=== PATIENT | female | born 1945 | race Caucasian/White ===

== ENCOUNTER 2021-03-25 08:41 | Outpatient (REF) | payer MEDICARE, SELFPAY | END 2021-03-25 08:42 | disposition home or self-care (01) | LOC: HO.HAP 08:41 | PROVIDERS: Visit Provider Internal Medicine | DX: Z13.89 Encounter for screening for other disorder (principal) ==

== ENCOUNTER 2021-04-04 12:21 | Outpatient (REF) | payer MEDICARE, SELFPAY ==
--- NOTE | 2021-04-04 16:39 | MHC.AU.AHA ---
Adult Audiological Evaluation Date of Visit: 04/04/21 Reason for Appointment: Audiological re-evaluation to monitor the status of Mrs. Dickson's hearing loss. She has a history of bilateral sensorineural hearing loss and hearing aid use. She denies any significant changes to her hearing or medical history. She is interested in pursuing new, updated hearing aids. Previous Hearing Test Results: [facility] [place] [facility] [place] - Mild to severe sensorineural hearing loss bilaterally. 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 Allergies: Penicillin, milk, egg Medication List: Multivitamin, Vitamin D, Calcium, Fluoxetine HCl 20 mg, Zyrtec allergy 10 mg, Omeprazole 20 mg, Basaglar KwikPen 46 units, Metformin HCl 500 mg, Atorvastatin calcium 20 mg Hearing Instrument History- Right Ear: Sales And Retail Management Recruiter: [email or web address] Model: RoleStar 312 UZ Serial Number: [id number] Battery Size: 312 Repair Warranty: 12/16/2019 Loss and Damage Warranty: 02/24/2016 Dispensed By: [facility] Date of Fittin02/08/2012 Hearing Instrument History- Left Ear: Sales And Retail Management Recruiter: [email or web address] Model: RoleStar 312 UZ Serial Number: [id number] Battery Size: 312 Warranty: 02/24/2016 Loss and Damage Warranty: 02/24/2016 Dispensed By: [facility] Date of Fittin02/08/2012 Otoscopy: Right Ear: Unremarkable Left Ear: Unremarkable Tympanometry: Tympanometry performed due to: To assess integrity of the middle ear system Right Ear: Normal Middle Ear System (Type A) Left Ear: Hypercompliant Middle Ear System (Type Ad) Hearing Evaluation: Transducer(s) Used: Insert Earphones, Bone Conduction Method: Conventional Audiometry Stimuli Used: Pure Tones Right Ear: Description of Hearing: Normal hearing at 250 Hz, sloping to a mild to severe sensorineural hearing loss from 500-8000 Hz. Left Ear: Description of Hearing: Mild sloping to severe sensorineural hearing loss from 250-8000 Hz. Speech Recognition Threshold (SRT): Method Used: Monitored Live Voice Stimuli Used: Spondee Words Right Ear: 35 dBHL Left Ear: 40 dBHL Word Discrimination: Method: Recorded Lists Word Lists Used: NU-6 Right Ear: 80% at 85 dBHL Left Ear: 48% at 85 dBHL Comparison: Compared to the most recent evaluation: Hearing is stable. Recommendations: Audiological re-evaluation in one year. Trial with amplification is recommended. Medical clearance from a physician is required before fitting. See Hearing Aid Evaluation report for more information. Hearing aid options were discussed and Mrs. Dickson decided she would like to proceed with purchasing new hearing aids. Earmolds impressions were taken and hearing aids will be ordered. She will be called to schedule a hearing aid fitting once materials are received. Diagnosis: Primary Diagnosis: H90.3 Bilateral Sensorineural Hearing Loss Services Performed: Comprehensive Audiological Evaluation (CPT 10594) Tympanometry (CPT 05035) Signature: Provider: Taye Roberts, CCC-A
--- NOTE | 2021-04-04 16:41 | MHC.AU.MED ---
Medical Clearance for Hearing Instrumentation Date: 04/04/21 Patient Name: Shannan Dickson Date of : 1945 Referring Provider: Chandan Younger MD, DO We have seen your patient on 04/04/21 and have determined that they are a candidate for amplification (See accompanying report). Specifically, they would benefit from: Hearing aid use in both ears There is a statute that addresses Medical Evaluation Requirements prior to fitting a patient with a hearing aid. According to [place] statute 265 CMR:6.03(1), (a) General. Except as provided in 265 CMR 6.03(1)(b), a kiln packer shall not sell a hearing aid unless the prospective user has presented to the kiln packer a written statement signed by a licensed physician that states that the patient's hearing loss has been medically evaluated and the patient may be considered a candidate for a hearing aid. The medical evaluation must have taken place within the preceding six months. Please note: Due to the [place] Statute referenced above, we cannot accept a signature other than that of a licensed physician. GENERAL TELLER and PA signatures cannot be accepted. I am in agreement with the above recommendation. There is no medical contraindication for hearing instrumentation. Physician Signature Date Physician Name (Printed)
--- NOTE | 2021-04-04 16:41 | MHC.AU.HAS ---
Hearing Aid Evaluation Date of Visit: 04/04/21 Historical Information: Description of Hearing: Mild to severe sensorineural hearing loss bilaterally. Current personal amplification information, if applicable: 2020 [place] ITE Summary: Ms. Dickson is interested in purchasing new hearing aids give the age of her current aids. She would like to remain with an half shell ITE aid. She is interested in Bluetooth streaming. Hearing Aid Prescription: Based on the individual?s shared listening needs, communication environments, dexterity, desire for connectivity, and personal preferences, the following prescription for amplification has been made: Right ear: Car Supervisor: Phonak Model: Virto M70-312 half shell Battery Size: 312 Color: [place] Knitter Operator: Power Left ear: Left ear prescription to be same as Right Hearing Aid above: Car Supervisor: Phonak Model: Virto M70-312 half shell Battery Size: 312 Color: pink Knitter Operator: Power Plan of Care: Patient wishes to purchase hearing aids as prescribed. Earmold Impressions Taken. Medical Clearance to be requested from PCP/ENT. Comments: Card machine was not working today, so patient couldn't pay the deposit. Will bill entire cost of aid at fitting. Primary Diagnosis: H90.3 Bilateral Sensorineural Hearing Loss Signature: Provider: Taye Roberts, CCC-A
== END 2021-04-04 12:22 | disposition home or self-care (01) ==
LOC: HO.SH 12:21
PROVIDERS: Visit Provider Internal Medicine
DX: H90.3 Sensorineural hearing loss, bilateral (principal)
CPT/HCPCS: 92557; 92567

== ENCOUNTER 2021-04-04 13:29 | Outpatient (REF) | payer SELFPAY | END 2021-04-04 13:30 | disposition home or self-care (01) | LOC: HO.HAP 13:29 | PROVIDERS: Visit Provider Internal Medicine | DX: Z13.89 Encounter for screening for other disorder (principal) ==

== ENCOUNTER 2021-04-26 12:55 | Outpatient (REF) | payer SELFPAY | END 2021-04-26 12:56 | disposition home or self-care (01) | LOC: HO.HAP 12:55 | PROVIDERS: Visit Provider Internal Medicine | DX: Z46.1 Encounter for fitting and adjustment of hearing aid (principal); H90.3 Sensorineural hearing loss, bilateral | CPT/HCPCS: 92591; V5260 ==

== ENCOUNTER 2021-05-10 11:19 | Outpatient (REF) | payer SELFPAY | END 2021-05-10 11:20 | disposition home or self-care (01) | LOC: HO.HAP 11:19 | PROVIDERS: Visit Provider Internal Medicine | DX: Z13.89 Encounter for screening for other disorder (principal) ==

== ENCOUNTER 2021-06-18 07:22 | Outpatient (REF) | payer MEDICARE, SELFPAY ==
[2021-06-18 07:38] LABS: MANUAL DIFF FLAG NO
[2021-06-18 08:07] LABS: Basophils Absolute Auto 0.1 X10*3/uL (0.0-0.2); Basophils Percent Auto 1.1 % (0-2); Eosinophils Absolute Auto 0.2 X10*3/uL (0.0-0.4); Eosinophils Percent Auto 4.1 % (0-4); Hematocrit 39.6 % (37-47); Hemoglobin 13.5 g/dl (12.0-16.0); Imm Gran Abs Auto 0.02 X10*3/uL (0.00-0.03); Imm Gran Pct Auto 0.4 % (0.0-0.4); Lymphocytes Absolute Auto 1.8 X10*3/uL (1.2-4.9); Lymphocytes Percent Auto 33.1 % (20-40); Mean Corpuscular HGB Conc 34.1 g/dl (31.0-35.0); Mean Platelet Volume 9.3 fL (9.4-12.3); Monocytes Absolute Auto 0.5 X10*3/uL (0.1-1.2); Monocytes Percent Auto 9.3 % (2-11); Neutrophils Absolute Auto 2.8 X10*3/uL (2.0-8.3); Platelet Count 203 X10*3/uL (160-400); Red Blood Count 4.35 X10*6/uL (4.20-5.50); Red Cell Distribution Width 12.8 % (11.0-16.0); White Blood Count 5.4 X10*3/uL (4.8-10.8)
[2021-06-18 08:31] LABS: Alanine Aminotransferase 16 U/L (0-31); Alkaline Phosphatase 92 U/L (39-117); Anion Gap 11 (12-20); Aspartate Amino Transferase 11 U/L (5-31); Bilirubin Total 0.8 mg/dL (0.0-1.0); Blood Urea Nitrogen 10 mg/dL (9-16); Calcium 9.6 mg/dL (8.4-10.2); Carbon Dioxide 28 mmol/L (22-29); Chloride 106 mmol/L (96-108); Cholesterol 172 mg/dL; Estimated Glomerular Filt Rate > 60; Glucose Fasting 126 mg/dL (60-99); HDL Cholesterol 34 mg/dL; LDL Cholesterol Calculated 97 mg/dl; Potassium 4.3 mmol/L (3.3-5.1); Sodium 141 mmol/L (135-145); Total Protein 6.5 g/dL (6.5-8.0); Triglycerides 205 mg/dL
[2021-06-18 08:40] LABS: Estimated Average Glucose 126 mg/dL; Hemoglobin A1C 150.1347 umol/L
[2021-06-18 08:47] LABS: Thyroid Stimulating Hormone 1.94 uIU/mL (0.32-4.0); Vitamin D 25-OH Total 36.1 ng/mL (>30)
== END 2021-06-18 07:23 | disposition home or self-care (01) ==
LOC: HO.LAB 07:22
PROVIDERS: PCP Internal Medicine; Visit Provider Internal Medicine
DX: E11.9 Type 2 diabetes mellitus without complications (principal); E78.00 Pure hypercholesterolemia, unspecified; E55.9 Vitamin D deficiency, unspecified
CPT/HCPCS: 36415; 80053; 80061; 82306; 83036; 84443; 85025

== ENCOUNTER 2021-11-02 13:08 | Outpatient (REF) | payer MEDICARE, SELFPAY ==
--- NOTE | ~2021-11-02 | MM_ITS ---
EXAMINATION: BONE DENSITOMETRY CLINICAL INDICATION: Status post fracture, left elbow. Postmenopausal. COMPARISON: None (current study represents initial baseline exam). TECHNIQUE: Using a [place] DXA System (software version: 13.1) manufactured by edo, dual-energy x-ray absorptiometry was performed of the lumbar spine and left hip. The images are of good technical quality. Summary results are attached. FINDINGS: AP SPINE L1-L4: BMD 0.914 g/cm2, Z-score -0.8, T-score -2.2, osteopenia. LEFT FEMUR, NECK: BMD 0.791 g/cm2, Z-score 0.0, T-score -1.8, osteopenia. LEFT FEMUR, TOTAL: BMD 0.773 g/cm2, Z-score -0.3, T-score -1.9, osteopenia. IDENTIFIED RISK FACTORS: Osteoporosis, history of fracture (adult), menopause, hysterectomy, bilateral oophorectomy. HISTORY OF FRACTURE: Elbow. MEDICATIONS: Calcium supplements or multivitamin, vitamin D. MM/XR DEXA axial skeleton IMPRESSION: 1. DIAGNOSIS: Osteopenia based on the lowest T-score value of -2.2 in the lumbar spine applying World Health Organization criteria. 2. 10-YEAR FRACTURE RISK PREDICTION, FRAX: Major osteoporotic fracture (clinical spine, forearm, hip or shoulder) 19.0%. Hip fracture 4.2%. 3. Treatment Recommendations: NOF guidelines recommend consideration for treatment in postmenopausal women and men age 50 and older presenting with the following: -A hip or vertebral (clinical or morphometric) fracture. -T-score less than or equal to -2.5 at the femoral neck or spine after appropriate evaluation to exclude secondary causes. -Low bone mass at the hip or spine and a 10-year fracture probability by FRAX of greater than or equal to 3% for hip fracture or greater than or equal to 20% for major osteoporotic fracture based on the [place] adapted WHO algorithm. 4. Other Recommendations: All treatment decisions require clinical judgment and consideration of individual patient factors, including patient preferences, comorbidities, previous drug use, risk factors not captured in the FRAX model (e.g. frailty, falls, vitamin D deficiency, increased bone turnover, interval significant decline in bone density) and possible under or overestimation of fracture risk by FRAX. Additional medical evaluation for secondary cause of low bone mineral density may be appropriate. FUTURE SCAN RECOMMENDATION: People with diagnosed cases of osteoporosis or at high risk for fracture should have regular bone mineral density tests. For patients eligible for Medicare, routine testing is allowed once every 2 years. The testing frequency can be increased to one year for patients who have rapidly progressing disease, those who are receiving or discontinuing medical therapy to restore bone mass, or have additional risk factors.
== END 2021-11-02 13:09 | disposition home or self-care (01) ==
LOC: HO.MAMMO 13:08
PROVIDERS: Visit Provider Internal Medicine
DX: Z13.820 Encounter for screening for osteoporosis (principal); Z78.0 Asymptomatic menopausal state; Z87.81 Personal history of (healed) traumatic fracture; Z90.710 Acquired absence of both cervix and uterus; Z90.722 Acquired absence of ovaries, bilateral; Z79.899 Other long term (current) drug therapy
CPT/HCPCS: 77080

== ENCOUNTER 2022-01-23 13:28 | Outpatient (REF) | payer SELFPAY | END 2022-01-23 13:29 | disposition home or self-care (01) | LOC: HO.HAP 13:28 | PROVIDERS: Visit Provider Internal Medicine | DX: Z13.89 Encounter for screening for other disorder (principal) ==

== ENCOUNTER 2022-02-03 13:14 | Outpatient (REF) | payer SELFPAY | END 2022-02-03 13:15 | disposition home or self-care (01) | LOC: HO.HAP 13:14 | PROVIDERS: Visit Provider Internal Medicine | DX: Z13.89 Encounter for screening for other disorder (principal) ==

== ENCOUNTER 2022-07-11 12:53 | Outpatient (REF) | payer MEDICARE, SELFPAY ==
--- NOTE | 2022-07-11 14:08 | MHC.AU.HFU ---
Hearing Instrument Follow-Up- Binaural Date of Visit: 07/11/22 Right Ear: Phonak Virto M70-312 SN: [id number] Color: [place] Repair Warranty: 05/20/2024 Loss and Damage Warranty: 05/20/2024 Battery Size: 312 Type of Wax Guard: Cerustop Dispensed By: [facility] Date of Fittin04/26/2021 Left Ear: Phonak Virto M70-312 SN: [id number] Color: [place] Repair Warranty: 05/20/2024 Loss and Damage Warranty: 05/20/2024 Battery Size: 312 Type of Wax Guard: Cerustop Dispensed By: [facility] Date of Fittin04/26/2021 Follow-Up Summary: Shannan returned for routine hearing aid maintenance. The left hearing aid faceplate is starting to detach from the shell and the shell is beginning to crack. Otherwise, Shannan is overall happy with her hearing aids and is not experiencing any other issues at this time. Her right hearing aid was cleaned, microphones vacuumed, and wax guard replaced. A listening check demonstrated that the right hearing aid is in good working order. The left hearing aid will be sent to [employer] to be recased for an in-warranty repair. Recommendations: Hearing instrument maintenance in 6 months, or sooner if needed. Please contact our clinic with any questions or concerns. Shannan will be contacted when her left hearing aid has returned from repair and is ready to be picked up. Diagnosis Code(s): Primary Diagnosis: H90.3 Bilateral Sensorineural Hearing Loss Signature: Provider: Lopez Groves, [facility]
== END 2022-07-11 12:54 | disposition home or self-care (01) ==
LOC: HO.SH 12:53
PROVIDERS: Visit Provider Internal Medicine
DX: H90.3 Sensorineural hearing loss, bilateral (principal)
CPT/HCPCS: 92557

== ENCOUNTER 2022-07-28 11:26 | Outpatient (REF) | payer SELFPAY ==
--- NOTE | 2022-07-28 12:06 | MHC.AU.HFU ---
Hearing Instrument Follow-Up- Binaural Date of Visit: 07/28/22 Right Ear: Phonak Virto M70-312 SN: [id number] Color: [place] Repair Warranty: 05/20/2024 Loss and Damage Warranty: 05/20/2024 Battery Size: 312 Type of Wax Guard: Cerustop Dispensed By: [facility] Date of Fittin04/26/2021 Left Ear: Phonak Virto M70-312 SN: [id number] Color: [place] Repair Warranty: 05/20/2024 Loss and Damage Warranty: 05/20/2024 Battery Size: 312 Type of Wax Guard: Cerustop Dispensed By: [facility] Date of Fittin04/26/2021 Follow-Up Summary: Shannan picked up her left repaired hearing aid. Reconnected both hearing aids via Target software and confirmed connection to cell phone. Recommendations: Hearing instrument maintenance in 6 months, or sooner if needed. Please contact our clinic with any questions or concerns. Diagnosis Code(s): Primary Diagnosis: H90.3 Bilateral Sensorineural Hearing Loss Signature: Provider: Lopez Groves, [facility]
== END 2022-07-28 11:27 | disposition home or self-care (01) ==
LOC: HO.HAP 11:26
PROVIDERS: Visit Provider Internal Medicine
DX: Z13.89 Encounter for screening for other disorder (principal)

== ENCOUNTER 2023-02-15 08:15 | Outpatient (REF) | payer MEDICARE, SELFPAY ==
[2023-02-15 11:37] LABS: MANUAL DIFF FLAG NO
[2023-02-15 11:50] LABS: Basophils Percent Auto 0.5 % (0-2); Eosinophils Absolute Auto 0.2 X10*3/uL (0.0-0.4); Hemoglobin 13.8 g/dl (12.0-16.0); Imm Gran Abs Auto 0.02 X10*3/uL (0.00-0.03); Imm Gran Pct Auto 0.4 % (0.0-0.4); Lymphocytes Absolute Auto 1.7 X10*3/uL (1.2-4.9); Lymphocytes Percent Auto 30.2 % (20-40); Mean Corpuscular HGB Conc 32.9 g/dl (31.0-35.0); Mean Corpuscular Hemoglobin 29.9 pg (27.0-33.0); Mean Corpuscular Volume 90.9 fL (80.0-98.0); Mean Platelet Volume 9.5 fL (9.4-12.3); Monocytes Absolute Auto 0.4 X10*3/uL (0.1-1.2); Monocytes Percent Auto 7.7 % (2-11); Neutrophils Absolute Auto 3.3 x10*3/uL (2.0-8.3); Neutrophils Percent Auto 58.2 % (45-73); Platelet Count 230 X10*3/uL (160-400); Red Blood Count 4.62 X10*6/uL (4.20-5.50); Red Cell Distribution Width 12.9 % (11.0-16.0); White Blood Count 5.7 X10*3/uL (4.8-10.8)
[2023-02-15 12:17] LABS: Alanine Aminotransferase 19 U/L (0-31); Albumin Level 3.8 g/dL (3.5-5.0); Alkaline Phosphatase 110 U/L (39-117); Anion Gap 12 (12-20); Aspartate Amino Transferase 13 U/L (5-31); Blood Urea Nitrogen 10 mg/dL (9-16); Calcium 9.9 mg/dL (8.4-10.2); Carbon Dioxide 28 mmol/L (22-29); Chloride 107 mmol/L (96-108); Cholesterol 166 mg/dL; Estimated Glomerular Filt Rate > 60; Glucose Fasting 200 mg/dL (60-99); HDL Cholesterol 38 mg/dL; LDL Cholesterol Calculated 82 mg/dl; Potassium 4.6 mmol/L (3.3-5.1); Sodium 142 mmol/L (135-145); Total Protein 6.4 g/dL (6.5-8.0); Triglycerides 231 mg/dL
[2023-02-15 12:23] LABS: Estimated Average Glucose 160 mg/dL; Hemoglobin A1c % 7.2 %; Thyroid Stimulating Hormone 1.69 uIU/mL (0.32-4.0); Vitamin D 25-OH Total 23.9 ng/mL (>30)
== END 2023-02-15 08:16 | disposition home or self-care (01) ==
LOC: HO.HMGCLDS 08:15
PROVIDERS: PCP Internal Medicine; Visit Provider Internal Medicine
DX: Z00.00 Encounter for general adult medical examination without abnormal findings (principal); E11.9 Type 2 diabetes mellitus without complications; E78.00 Pure hypercholesterolemia, unspecified; K21.9 Gastro-esophageal reflux disease without esophagitis; F41.1 Generalized anxiety disorder; E55.9 Vitamin D deficiency, unspecified; Z85.3 Personal history of malignant neoplasm of breast
CPT/HCPCS: 36415; 80053; 80061; 82306; 83036; 84443; 85025

== ENCOUNTER 2023-06-04 11:27 | Outpatient (REF) | payer SELFPAY | END 2023-06-04 11:28 | disposition home or self-care (01) | LOC: HO.HAP 11:27 | PROVIDERS: Visit Provider Internal Medicine | DX: Z13.89 Encounter for screening for other disorder (principal) ==

== ENCOUNTER 2023-07-25 15:29 | Outpatient (REF) | payer SELFPAY ==
--- NOTE | 2023-07-25 15:52 | MHC.AU.HA3 ---
Hearing Instrument Follow-Up- Binaural Date of Visit: 07/25/23 Right Ear: Make, Model, Color, Serial Number: Aidan Mcdermott [id number] SN: [id number] Color: [place] [employer] Repair Warranty: 05/20/2024 [employer] Services Loss and Damage Warranty: 05/20/2024 Battery Size: 312 Senior Manufacturing Technician/Slim Tube: Power Type of Wax Guard: Cerustop Dispensed By: [facility] Date of Fittin04/26/2021 Left Ear: Make, Model, Color, Serial Number: Aidan Mcdermott [id number] SN: [id number] Color: [place] [employer] Repair Warranty: 08/08/2024 [employer] Loss and Damage Warranty: 05/20/2024 Battery Size: 312 Senior Manufacturing Technician/Slim Tube: Power Type of Wax Guard: Cerustop Dispensed By: [facility] Date of Fittin04/26/2021 Follow-Up Summary: Shannan picked up her left repaired hearing aid. Reconnected to right hearing aid and reprogrammed to previous settings via Target software. Shannan noted a slight echo from the left hearing aid; however, may be attributed to reacclimating to sound quality as she has been without a left hearing aid since 06/04/2023. Shannan was agreeable to trying hearing aids as is to give herself time to adjust to having two hearing aids again. She will call if issues with sound quality persist. Recommendations: Hearing instrument follow-up or maintenance as needed. Please contact our clinic with any questions or concerns. Patient will call if problems persist. Diagnosis Code(s): Primary Diagnosis: H90.3 Bilateral Sensorineural Hearing Loss Signature: Provider: Lopez Groves, [facility]
== END 2023-07-25 15:30 | disposition home or self-care (01) ==
LOC: HO.HAP 15:29
PROVIDERS: Visit Provider Internal Medicine
DX: Z13.89 Encounter for screening for other disorder (principal)

== ENCOUNTER 2023-10-26 11:14 | Emergency (ER) | payer MEDICARE, SELFPAY ==
--- NOTE | ~2023-10-26 | XR_ITS ---
EXAMINATION: XR CHEST CLINICAL INFORMATION: Mechanical fall, chest injury and pain COMPARISON: Chest x-ray on 03/03/2019 TECHNIQUE: 2 views of the chest were obtained. FINDINGS: vascularity. LUNGS: Persistent medium-sized retrocardiac hiatus hernia with air-fluid level is seen. Tiny horizontal linear atelectasis is seen in lateral right lung base. No pneumothorax is seen. BONES: Bony skeleton is intact. XR/XR chest 2V IMPRESSION: 1. Unchanged medium-sized retrocardiac hiatus hernia, visualized on CT scan of chest on 10/30/2018. 2. Interval development of tiny lateral right lung base horizontal linear atelectasis.
--- NOTE | ~2023-10-26 | XR_ITS ---
EXAMINATION: XR KNEE, LEFT CLINICAL INFORMATION: Fell down one to left knee, left knee injury and pain COMPARISON: None available. TECHNIQUE: AP and lateral views of the left knee. FINDINGS: BONES: Bony structures are intact. There is no focal bone destruction or periosteal reaction seen. JOINTS: Alignment of joints is normal. SOFT TISSUE: Soft tissue is normal. No radiopaque foreign body or abnormal air collection is seen. XR/XR knee LT 2V IMPRESSION: 1. Normal x-rays of left knee. No fracture or dislocation or signs of osteomyelitis are found.
[2023-10-26 11:21] VITALS: BP 170/84; PULSE 86; RESP 18; TEMP 36.7; O2SAT 97; BMI 25.1
--- NOTE | 2023-10-26 11:25 | ED_ITS ---
HPI - Fall General Chief Complaint: Fall Stated Complaint: fell twice in the last 2 days, sent by dr Time Seen by Provider: 10/26/23 16:24 Source: patient and family Mode of arrival: ambulatory Limitations: no limitations History of Present Illness HPI Narrative: Patient with history diabetes, vitamin-D deficiency breast cancer status post radiation therapy and lumpectomy is alone came here for episodes of 2 falls at home without warning. Two days ago patient walking to the kitchen suddenly legs gave out does not know what happened and she fell without hitting her head yesterday same thing happened no lightheadedness no seizure activity no chest pain or palpitation no confusion before or after no dizziness patient has gait and balance problem no history of alcohol use ex-smoker patient complaining of mild pain in the L knee patient checked her blood sugar was 127 Related Data Allergies Allergy/AdvReac Type Severity Reaction Status Date / Time penicillin G Allergy Unknown anaphylaxis Verified 04/04/19 00:00 penicillin V Allergy Unknown anaphylaxis Verified 02/23/16 00:00 Penicillins [PENICILLINS] Allergy Unknown ANAPHYLAXIS Unverified 05/27/20 14:51 milk [Milk] AdvReac Intermediate DIGESTIVE Verified 10/26/23 11:21 UPSET egg [Egg] AdvReac Mild DIGESTIVE Verified 10/26/23 11:21 UPSET Review of Systems 2 Review of Systems: Yes all other systems are reviewed and are negative [facility] Social History Social History Smoked in Last 30 Days: No Use of substances other than those prescribed or required for medical reasons: No Advance Directives: Yes Advance Directives Information Provided: Yes Advance Directives on File: No Physical Exam 2 Vital Signs: Vital Signs: Last Vital Signs Temp 98.8 F 10/26/23 14:53 Pulse 86 10/26/23 17:25 Resp 16 10/26/23 17:18 BP 147/81 H 10/26/23 17:25 Pulse Ox 96 10/26/23 14:53 O2 Del Method Room Air 10/26/23 14:53 BMI result Body Mass Index 25.1 Appearance: Alert. Oriented X3. No acute distress. Eyes: No pallor or icterus ENT: Pharynx normal. Oral Mucosa moist Neck: Normal inspection. Neck supple. CVS: Normal heart rate and rhythm. Pulses normal. Respiratory: No respiratory distress. Equal air entry bilateral, no wheezing/rales/rhonchi Abdomen: Soft and nontender. Bowel sounds are present, no mass palpable, no CVA tenderness Skin: Skin warm and dry. Normal skin color. Normal skin turgor. Extremities: No lower extremity edema. No calf tenderness low muscle mass mild tenderness left kneecap no effusion good range of movement Neuro: Oriented X 3. No motor deficit. No sensory deficit.No cerebellar signs , cranial nerves II-XII intact steady gait but unable to walk a straight line Course Course Course Narrative: RME:?78 yo female w/ history of t2 diabetes, htn, vitamin-D deficiency, breast cancer status post lumpectomy and radiation, here from PCP office for eval of left knee pain s/p fall 2 days ago. States she fell forward onto ceramic floor with impact to her knees, without warning 2 days ago. Not on AC. Denies head strike or LOC. Was able to stand and ambulate after fall. Denies preceding events such as headache, dizziness, chest pain, SOB, weakness. Reports the same thing happened yesterday. no recent travel/ long car rides. labs, cxr, knee xr ordered. Full HPI, ROS and PE to be performed by the primary ED provider. Medical Decision Making Medical Decision Making [facility] Narrative: Patient with poor muscle mass fell secondary to legs giving out without any significant injuries workup is negative no cardiac arrhythmias noticed in the ER orthostatics are normal patient advised to follow with PCP for physical therapy and maybe patient needs Holter monitoring Differential Diagnosis Differential Diagnoses: The differential diagnosis associated with the presentation includes Cardiac arrhythmias/seizure/muscular weakness/syncope/metabolic etiology Lab Data [facility] Lab Attestation statement: I reviewed the patient's lab results. 10/26/23 12:57 10/26/23 12:57 Labs: Lab Results 10/26/23 Range/Units 12:57 WBC 7.5 (4.8-10.8) X10*3/uL RBC 4.37 (4.20-5.50) X10*6/uL Hgb 13.0 (12.0-16.0) g/dl Hct 39.3 (37.0-47.0) % MCV 89.9 (80.0-98.0) fL MCH 29.7 (27.0-33.0) pg MCHC 33.1 (31.0-35.0) g/dl RDW 13.4 (11.0-16.0) % Plt Count 214 (160-400) X10*3/uL MPV 9.2 L (9.4-12.3) fL Immature Gran % (Auto) 0.4 (0.0-0.4) % Neut % (Auto) 63.8 (45-73) % Lymph % (Auto) 20.7 (20-40) % Cobb % (Auto) 9.2 (2-11) % Eos % (Auto) 5.2 H (0-4) % Baso % (Auto) 0.7 (0-2) % Lymph # (Auto) 1.6 (1.2-4.9) X10*3/uL Cobb # (Auto) 0.7 (0.1-1.2) X10*3/uL Eos # (Auto) 0.4 (0.0-0.4) X10*3/uL Baso # (Auto) 0.1 (0.0-0.2) X10*3/uL Abs Immat Gran (auto) 0.03 (0.00-0.03) X10*3/uL Absolute Neuts (auto) 4.8 (2.0-8.3) x10*3/uL Absolute Nucleated RBC 0.000 (0.0-0.012) X10*3/uL Nucleated RBC % (auto) 0.0 (0.0-0.2) /100WBC PT 11.0 L (11.1-13.3) SEC INR 0.9 (0.9-1.1) Sodium 143 (135-145) mmol/L Potassium 3.7 (3.3-5.1) mmol/L Chloride 107 (96-108) mmol/L Carbon Dioxide 26 (22-29) mmol/L Anion Gap 14 (12-20) BUN 5 L (9-16) mg/dL Creatinine 0.56 (0.5-1.4) mg/dL Estim Creat Clear Calc 81.8 Estimated GFR > 60 Random Glucose 122 H (60-115) mg/dL Calcium 9.4 (8.4-10.2) mg/dL Magnesium 1.7 (1.6-2.6) mg/dL Troponin I High Sens < 2.7 (<3.5-17.0) ng/L Independent Interpretation I performed an independent interpretation of an: EKG and Plain X-Ray Interpretation: Normal sinus rhythm heart rate 79 beats per minute normal intervals normal axis impression normal EKG Radiology Impression Discussion of test interpretation with radiology: I have reviewed the radiologist's reading. Discharge Plan Discharge Clinical Impression: Fall Patient Disposition: Home, Self-Care Instructions: Fall Prevention for Older Adults (ED) Additional Instructions: Care and cautions as advised Use cane or walker for ambulation for now Follow-up with PCP for further evaluation including physical therapy referral and may need Holter monitoring Interventions: ED Discharge Assessment Last Done: 10/26/23 17:32 Discharge Date/Time: 10/26/23 17:39
--- NOTE | 2023-10-26 11:27 | ECG_ITS ---
Test Reason : FAL Blood Pressure : / mmHG Vent. Rate : 079 BPM Atrial Rate : 079 BPM P-R Int : 148 ms QRS Dur : 086 ms QT Int : 388 ms P-R-T Axes : 007 -10 005 degrees QTc Int : 444 ms Normal sinus rhythm Normal ECG When compared with ECG of 09-DEC-2009 11:32, No significant change was found Referred By: Dorys Augustin Electronically Signed By:Sloan Macedo
[2023-10-26 13:02] LABS: MANUAL DIFF FLAG NO
[2023-10-26 13:17] LABS: INTERNATIONAL NORM RATIO 0.9 (0.9-1.1)
[2023-10-26 13:18] LABS: Anion Gap 14 (12-20); Blood Urea Nitrogen 5 mg/dL (9-16); Calcium 9.4 mg/dL (8.4-10.2); Carbon Dioxide 26 mmol/L (22-29); Chloride 107 mmol/L (96-108); Creatinine Clr Calc Pharmacy 81.8; Estimated Glomerular Filt Rate > 60; Glucose Random 122 mg/dL (60-115); Magnesium 1.7 mg/dL (1.6-2.6); Potassium 3.7 mmol/L (3.3-5.1); Sodium 143 mmol/L (135-145)
[2023-10-26 13:26] LABS: Basophils Absolute Auto 0.1 X10*3/uL (0.0-0.2); Basophils Percent Auto 0.7 % (0-2); Eosinophils Absolute Auto 0.4 X10*3/uL (0.0-0.4); Eosinophils Percent Auto 5.2 % (0-4); Hematocrit 39.3 % (37.0-47.0); Imm Gran Abs Auto 0.03 X10*3/uL (0.00-0.03); Imm Gran Pct Auto 0.4 % (0.0-0.4); Lymphocytes Absolute Auto 1.6 X10*3/uL (1.2-4.9); Lymphocytes Percent Auto 20.7 % (20-40); Mean Corpuscular HGB Conc 33.1 g/dl (31.0-35.0); Mean Corpuscular Hemoglobin 29.7 pg (27.0-33.0); Mean Corpuscular Volume 89.9 fL (80.0-98.0); Mean Platelet Volume 9.2 fL (9.4-12.3); Monocytes Absolute Auto 0.7 X10*3/uL (0.1-1.2); Monocytes Percent Auto 9.2 % (2-11); Neutrophils Absolute Auto 4.8 x10*3/uL (2.0-8.3); Neutrophils Percent Auto 63.8 % (45-73); Platelet Count 214 X10*3/uL (160-400); Red Blood Count 4.37 X10*6/uL (4.20-5.50); Red Cell Distribution Width 13.4 % (11.0-16.0); White Blood Count 7.5 X10*3/uL (4.8-10.8)
[2023-10-26 13:27] LABS: Troponin-I High Sensitivity < 2.7 ng/L (<3.5-17.0)
[2023-10-26 14:53] VITALS: BP 171/84; PULSE 78; RESP 16; TEMP 37.1; O2SAT 96
[2023-10-26 17:17] VITALS: BP 135/69; PULSE 75; RESP 16
[2023-10-26 17:18] VITALS: BP 142/70; BP 147/81; PULSE 82; PULSE 86; RESP 16
[2023-10-26 17:25] VITALS: BP 135/69; BP 142/70; BP 147/81; PULSE 75; PULSE 82; PULSE 86
== END 2023-10-26 17:39 | disposition home or self-care (01) ==
PROVIDERS: Physician Assistant Medical; Emergency Provider Internal Medicine; PCP Internal Medicine
DX: R26.81 Unsteadiness on feet (principal); M25.562 Pain in left knee; R07.89 Other chest pain; Z79.899 Other long term (current) drug therapy
CPT/HCPCS: 36415; 71046; 73560; 80048; 83735; 84484; 85025; 85610; 93005; 99283; 99284

== ENCOUNTER → 2023-10-26 11:27 | Outpatient (BNV) | payer MEDICARE, SELFPAY | PROVIDERS: Emergency Provider Internal Medicine; PCP Internal Medicine; Visit Provider Internal Medicine Cardiovascular Disease | DX: R55 Syncope and collapse (principal) | CPT/HCPCS: 93010 ==

== ENCOUNTER → 2023-11-29 10:26 | Outpatient (REF) | payer MEDICARE, SELFPAY ==
--- NOTE | 2023-11-29 10:30 | HM_ITS ---
Conclusion: 1. Patient was monitored for total period of 2 days and 20 hours 2. Baseline was normal sinus rhythm with average heart of 69 beats per minute 3. No significant pauses noted 4. Occasional PACs noted 5. No patient reported events MTDD
== END ==
LOC: HO.CARD 10:26
PROVIDERS: PCP Internal Medicine; Visit Provider Internal Medicine
DX: R55 Syncope and collapse (principal)
CPT/HCPCS: 93242

== ENCOUNTER → 2023-11-29 10:30 | Outpatient (BNV) | payer MEDICARE, SELFPAY | PROVIDERS: PCP Internal Medicine; Visit Provider Internal Medicine Cardiovascular Disease | DX: R55 Syncope and collapse (principal) | CPT/HCPCS: 93244 ==

== ENCOUNTER 2023-12-26 12:47 | Outpatient (REF) | payer MEDICARE, SELFPAY ==
--- NOTE | 2023-12-26 16:25 | MHC.AU.HA3 ---
Hearing Instrument Follow-Up- Binaural Date of Visit: 12/26/23 Right Ear: [place], Model, Color, Serial Number: Aidan Mcdermott [id number] SN: [id number] Color: [place] Sidewalk Repairer Repair Warranty: 05/20/2024 Sidewalk Repairer Loss and Damage Warranty: 05/20/2024 [facility] Service Plan: 05/20/2024 Battery Size: 312 Manager Personnel Selection/Slim Tube: Power Earmold/Dome/CShell/SlimTip: Type of Wax Guard: Cerustop Dispensed By: [facility] Date of Fittin04/26/2021 Left Ear: Make, Model, Color, Serial Number: Aidan Mcdermott [id number] SN: [id number] Color: [place] Sidewalk Repairer Repair Warranty: 08/08/2024 Sidewalk Repairer Loss and Damage Warranty: 05/20/2024 [facility] Service Plan: 05/20/2024 Battery Size: 312 Manager Personnel Selection/Slim Tube: Power Earmold/Dome/CShell/SlimTip: Type of Wax Guard: Cerustop Dispensed By: [facility] Date of Fittin04/26/2021 Follow-Up Summary: Right aid dropped off, broken into multiple pieces. Spoke to pt on phone, advised need to send out. Advised it can likely be repaired under warranty at no charge, however there is a possibility it could be deemed needing replacement under L&D which would cost $350, pt is fine with this. Recommendations: Recommendations: Patient will be contacted when materials have arrived. Diagnosis Code(s): Primary Diagnosis: H90.3 Bilateral Sensorineural Hearing Loss Signature: Provider: Lopez Burton, [facility]
== END 2023-12-26 12:48 | disposition home or self-care (01) ==
LOC: HO.HAP 12:47
PROVIDERS: Visit Provider Internal Medicine
DX: Z13.89 Encounter for screening for other disorder (principal)

== ENCOUNTER 2024-01-22 14:40 | Outpatient (REF) | payer SELFPAY | END 2024-01-22 14:41 | disposition home or self-care (01) | LOC: HO.HAP 14:40 | PROVIDERS: Visit Provider Internal Medicine | DX: Z13.89 Encounter for screening for other disorder (principal) ==

== ENCOUNTER 2024-03-31 15:36 | Outpatient (REF) | payer SELFPAY | END 2024-03-31 15:37 | disposition home or self-care (01) | LOC: HO.HAP 15:36 | PROVIDERS: Visit Provider Internal Medicine | DX: Z13.89 Encounter for screening for other disorder (principal) ==

== ENCOUNTER 2024-04-15 15:16 | Outpatient (REF) | payer SELFPAY | END 2024-04-15 15:17 | disposition home or self-care (01) | LOC: HO.HAP 15:16 | PROVIDERS: PCP Internal Medicine; Visit Provider Internal Medicine | DX: Z13.89 Encounter for screening for other disorder (principal) ==

== ENCOUNTER 2024-08-28 11:10 | Outpatient (REF) | payer MEDICARE, SELFPAY ==
--- OUTSIDE RECORDS SUMMARY | 2024-08-28 11:15 | XMS_ITS ---
Author Organization Chandan Younger DO, FACP Address [address] [place], [place] [id number] Care Team Providers Care Bone Tender Name Role Phone Chandan Younger Primary Care Provider [phone] ALLERGIES Allergen (clinical drug ingredient) Drug/Non Drug Allergy documented on EMR Reaction Allergy Type Onset Date Status Penicillin anaphylaxis Drug Allergy Acti ve REASON FOR REFERRAL Reason Memory loss Diagnosis 1 Memory loss (R41.3) Referral Organization Chandan Valentine O, FACP Referring Provider First Name Chandan Referring Provider Last Name Aren Referring Provider Speciality Internal M edicine Referred Provider Maria Esther Bergman Referred Provider Specialty Neurology General Notes Kristi Sampson 03:48:18 PM EDT > Referral faxed prior to scheduling, Johanne Burks 06/18/2024 09:42:09 AM EDT > referral faxed. Referral Priority Routine Referral Appointment Date 08/28/2024 REASON FOR VISIT 6 month f/u, Follow up type II diabetes mellitus MEDICATIONS Medication SIG (Take, Route, Frequency, Duration) Notes Start Date End Date Status FLUoxetine HCl 40 MG 1 capsule Orally On ce a day Active Vitamin D 1000 UNIT 1 capsule Orally Onc e a day Active ZyrTEC Allergy 10 MG 1 tablet Orally Once a day Active Omeprazole 20 MG 1 capsule 30 minutes before morning meal Orally Once a day Active Atorvastatin Calcium 40 MG 1 tablet Orally Once a day Active metFORMIN HCl 500 MG 2 tablets in the mo rning Orally Once a day Active Aspirin Adult Low Dose 81 MG 1 tablet Orally Once a day A ctive Soliqua 100-33 UNT-MCG/ML 16 units in th e morning Subcutaneous Once a day Active SOCIAL HISTORY Tobacco Use: Social History Observation Description Date Details (start date - stop date) Former Smoker NA - NA Sex Assigned At : Social History Observation Description Sex Assigned At Female Tobacco Use/Smoking Question Answer Notes Patient is a former smoker How long has it been since y ou last smoked? > 10 years Additional Findings: Tobacco Non-User Fo rmer smoker, currently using no form of tobacco Alcohol Screen Question Answer Notes Did you have a drink contain ing alcohol in the past year? Yes How often did you have a dri nk containing alcohol in the past year? Monthly or less (1 point) How many drinks did you have on a typical day when you were drinking in the past year? 1 or 2 drinks (0 point) How often did you have 6 or more drinks on one occasion in the past year? Never (0 point) Points 1 Interpretation Negative PROBLEMS Problem Type ICD Code Onset Dates Problem Status W/U Status Risk SNOMED Code Notes Problem Memory loss (R41.3) Active confirmed 70527124 VITAL SIGNS BMI 25.23 kg/m2 06/17/2024 Blood pressure systolic 122 mm Hg 06/17/20 24 Blood pressure diastolic 74 mm Hg 024 Height 65.5 in 06/17/2024 Weight 154 lbs 06/17/2024 Encounters Encounter Location Date Provider Diagnosis Chandan Younger DO, [address] [id number] 06/17/2024 Chandan Younger Type 2 diabetes pili itus without complication E11.9 ; Essential hypertension I10 ; Hypercholesterolemia E78.00 ; Gastroesophageal reflux disease, esophagitis presence not specified K21.9 ; Generalized anxiety disorder F41.1 ; Vitamin D deficiency E55.9 and Memory loss R41.3 ASSESSMENTS Encounter Date Diagnosis Assessment Notes Treatment Notes Treatment Clinical Notes 06/17/2024 Type 2 diabetes pili itus without complication (ICD-10 - E11.9) 06/17/2024 Essential hypertensi on (ICD-10 - I10) 06/17/2024 Hypercholesterolemia (ICD-10 - E78.00) 06/17/2024 Gastroesophageal ref lux disease, esophagitis presence not specified (ICD-10 - K21.9) 06/17/2024 Generalized anxiety disorder (ICD-10 - F41.1) 06/17/2024 Vitamin D deficiency (ICD-10 - E55.9) 06/17/2024 Memory loss (ICD-10 - R41.3) PLAN OF TREATMENT Medication Medication Name Sig Start Date Stop Date Notes FLUoxetine HCl 40 MG 1 capsule Orally Once a day Vitamin D 1000 UNIT 1 capsule Orally Once a day ZyrTEC Allergy 10 MG 1 tablet Orally Once a day Omeprazole 20 MG 1 capsule 30 minutes before morning meal Orally Once a day Atorvastatin Calcium 40 MG 1 tablet Orally Once a day metFORMIN HCl 500 MG 2 tablets in the mo rning Orally Once a day Aspirin Adult Low Dose 81 MG 1 tablet Orally Once a day Soliqua 100-33 UNT-MCG/ML 16 units in th e morning Subcutaneous Once a day Pending Test Test Name Order Date CBC w DIFF 06/17/2024 LIPOPROTEIN FRACTIONATION (LIPID PANEL) 06/17/2024 PROFILE, FASTING 06/17/2024 TSH (THYROID STIMULATING HORMONE) 2023 VITAMIN D 25-OH TOTAL 06/17/2024 Urinalysis and Microscopic 06/17/2024 Microalbumin, Random 06/17/2024 Hemoglobin A1c 06/17/2024 Referrals Referral Date Details 08/28/2024 08/28/2024, Maria Esther Rich Next Appt Details Follow Up: 3 Months, Reason: follow up visit Progress Notes * Examination Category Sub-Category Detail Notes General Examination GENERAL APPEARANCE: in no ac jose l distress, well developed, well nourished HEAD: normocephalic, atrau matic HEART: no murmurs, regular rate and rhythm, S1, S2 normal LUNGS: clear to auscultatio n bilaterally ABDOMEN: normal, bowel sounds present, soft, nontender, nondistended NEUROLOGIC: SKIN: warm and dry EXTREMITIES: no edema PSYCH: alert, oriented, cog nitive function intact Consultation Request Notes Referral Date Referring Provider Referred Provider Not roxanne 06/17/2024 Chandan Younger [facility]
--- OUTSIDE RECORDS SUMMARY | 2024-08-28 11:15 | XMS_ITS ---
Author Organization Chandan Younger DO, FACP Address [address] [place], [place] [id number] Care Team Providers Care Hop Farmer Name Role Phone Chandan Younger Primary Care Provider ALLERGIES Allergen (clinical drug ingredient) Drug/Non Drug Allergy documented on EMR Reaction Allergy Type Onset Date Status Penicillin anaphylaxis Drug Allergy Acti ve REASON FOR VISIT 6 month f/u, Follow up Frequent falls MEDICATIONS Medication SIG (Take, Route, Frequency, Duration) Notes Start Date End Date Status Omeprazole 20 MG 1 capsule 30 minutes before morning meal Orally Once a day Active Atorvastatin Calcium 40 MG 1 tablet Orally Once a day Active Aspirin Adult Low Dose 81 MG 1 tablet Orally Once a day A ctive Soliqua 100-33 UNT-MCG/ML 25 units in th e morning Subcutaneous Once a day Active metFORMIN HCl 500 MG 2 tablets in the mo rning Orally Once a day Active Vitamin D 1000 UNIT 1 capsule Orally Onc e a day Active ZyrTEC Allergy 10 MG 1 tablet Orally Once a day Active FLUoxetine HCl 40 MG 1 capsule Orally On ce a day Active SOCIAL HISTORY Tobacco Use: [...] Never (0 point) Points 1 Interpretation Negative VITAL SIGNS BMI 26.55 kg/m2 12/18/2023 Blood pressure systolic 128 mm Hg 12/18/19 24 Blood pressure diastolic 80 mm Hg 024 Height 65.5 in 12/18/2023 Weight 162 lbs 12/18/2023 Encounters Encounter Location Date Provider Diagnosis Chandan Younger DO, [address] [phone] 12/18/2023 Chandan Younger Frequent falls R29.6 ; Type 2 diabetes mellitus without complication E11.9 ; Essential hypertension I10 ; Hypercholesterolemia E78.00 ; Gastroesophageal reflux disease, esophagitis presence not specified K21.9 ; Generalized anxiety disorder F41.1 and Vitamin D deficiency E55.9 ASSESSMENTS Encounter Date Diagnosis Assessment Notes Treatment Notes Treatment Clinical Notes 12/18/2023 Frequent falls (ICD- 10 - R29.6) No further falls reported. Saw Physical Therapy 12/18/2023 Type 2 diabetes pili itus without complication (ICD-10 - E11.9) 12/18/2023 Essential hypertensi on (ICD-10 - I10) 12/18/2023 Hypercholesterolemia (ICD-10 - E78.00) 12/18/2023 Gastroesophageal ref lux disease, esophagitis presence not specified (ICD-10 - K21.9) 12/18/2023 Generalized anxiety disorder (ICD-10 - F41.1) 12/18/2023 Vitamin D deficiency (ICD-10 - E55.9) PLAN OF TREATMENT Medication Medication Name Sig Start Date Stop Date Notes Omeprazole 20 MG 1 capsule 30 minutes before morning meal Orally Once a day Atorvastatin Calcium 40 MG 1 tablet Orally Once a day Aspirin Adult Low Dose 81 MG 1 tablet Orally Once a day Soliqua 100-33 UNT-MCG/ML 25 units in th e morning Subcutaneous Once a day metFORMIN HCl 500 MG 2 tablets in the mo rning Orally Once a day Vitamin D 1000 UNIT 1 capsule Orally Once a day ZyrTEC Allergy 10 MG 1 tablet Orally Once a day FLUoxetine HCl 40 MG 1 capsule Orally Once a day Treatment Notes Assessment Notes Frequent falls No further falls rep orted. Saw Physical Therapy Next Appt Details Follow Up: 6 Months, Reason: follow up visit Progress Notes [...]
--- OUTSIDE RECORDS SUMMARY | 2024-08-28 11:16 | XMS_ITS | Patient Health Record ---
Author Organization Chandan Younger DO, FACP Address [address] [place], [place] [id number] Care Team Providers Care Gas Manager Name Role Phone Chandan Younger Primary Care Provider [phone] ALLERGIES Allergen (clinical drug ingredient) Drug/Non Drug Allergy documented on EMR Reaction Allergy Type Onset Date Status Penicillin anaphylaxis Drug Allergy Acti ve RESULTS Component Value Reference Range Notes MAMMOGRAM, SCREENING Reviewed date:05/27/2024 12:23:34 PM Interpretation:Benign Performing Lab: Notes/Report: Benign Diabetic eye exam Reviewed date:08/20/2024 06:12:56 PM Interpretation:No diabetic retinopathy Performing Lab: Notes/Report: No diabetic retinopathy REASON FOR REFERRAL Reason Frequent falls Diagnosis 1 Frequent falls (R29. 6) Referral Organization Chandan Lopez FACP Referring Provider First Name Chandan Referring Provider Last Name Aren Referring Provider Speciality Internal M edicine Referred Provider AT Physical Therapy [facility] Referred Provider Specialty Physical The rapist General Notes Johanne Burks 024 11:45:18 AM EST > referral faxed; specialist's office will call patient to schedule appointment; patient aware. Referral Priority Routine Reason Memory loss Diagnosis 1 Memory loss (R41.3) Referral Organization Chandan Lopez FACP Referring Provider First Name Chandan Referring Provider Last Name Aren Referring Provider Speciality Internal M edicine Referred Provider Maria Esther Bergman Referred Provider Specialty Neurology General Notes Kristi Sampson 4 03:48:18 PM EDT > Referral faxed prior to scheduling, Johanne Burks 06/18/2024 09:42:09 AM EDT > referral faxed. Referral Priority Routine Referral Appointment Date 08/28/2024 MEDICATIONS Medication SIG (Take, Route, Frequency, Duration) Notes Start Date End Date Status metFORMIN HCl 500 MG 2 tablets in the mo rning Orally Once a day Active Omeprazole 20 MG 1 capsule 30 minutes before morning meal Orally Once a day for 90 days Active FLUoxetine HCl 40 MG 1 capsule Orally On ce a day Active Vitamin D 1000 UNIT 1 capsule Orally Onc e a day Active ZyrTEC Allergy 10 MG 1 tablet Orally Once a day Active Atorvastatin Calcium 40 MG 1 tablet Orally Once a day Active Aspirin Adult Low Dose 81 MG 1 tablet Orally Once a day A ctive Soliqua 100-33 UNT-MCG/ML 16 units in th e morning Subcutaneous Once a day Active IMMUNIZATIONS Vaccine Route Administration Date Status Comme nts DT Unknown 06/06/2004 Administered Pneumococcal - PPSV23 IM Intramuscular 05/07/2014 Administ ered Influenza Quad IM Intramuscular 06/26/2018 Administered Influenza Quad IM Intramuscular 08/31/2020 Administered Influenza High Dose IM Intramuscular 06/21/2021 Administer ed COVID-19 Pfizer BioNTech Unknown 09/06/2021 Administere d COVID-19 Moderna Vaccine Unknown 11/09/2020 Administere d COVID-19 Moderna Vaccine Unknown 12/07/2020 Administere d Influenza Quad IM Intramuscular 07/18/2022 Administered Influenza High Dose IM Intramuscular 06/20/2023 Administer ed Influenza High Dose Unknown 07/10/2024 Administered Influenza Unknown 08/25/2014 Refused Influenza Unknown 09/20/2015 Refused Influenza Unknown 08/14/2017 Refused SOCIAL HISTORY Tobacco Use: Social History Observation [...] W/U Status Risk SNOMED Code Notes Problem Vitamin D deficiency (E55.9) Active confirmed 17325603 Problem Generalized anxiety disorder (F41.1) Active confirmed 38890013 Problem Essential hypertensi on (I10) Active confirmed 61553249 Problem Type 2 diabetes mellitus without complication (E11.9) Active confirmed 65136045 Problem Frequent falls (R29.6) Active confirmed 743091867 Problem Dysthymia (F34.1) Active confirmed 7866 7006 Problem History of breast cancer (Z85.3) Active confirmed 374045552 Problem Gastroesophageal ref lux disease, esophagitis presence not specified (K21.9) Active confirmed 583688529 Problem Memory loss (R41.3) Active confirmed 48 626490 Problem Hypercholesterolemia (E78.00) Active confirmed 76522334 Problem 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) Active confirmed 744500 001 Problem Ground glass opacity present on imaging of lung (R91.8) Active confirmed 433543337 Problem Dupuytrens contractu re (M72.0) Active confirmed 926613294 VITAL SIGNS Blood pressure diastolic 74 mm Hg 06/17/2024 Height 65.5 in 06/17/2024 Blood pressure systolic 122 mm Hg 06/17/2024 Weight 154 lbs 06/17/2024 BMI 25.23 kg/m2 06/17/2024 Encounters Encounter Location Date Provider Diagnosis Chandan Younger DO [address] [id number] 12/18/2023 Chandan Younger Frequent falls R29.6 ; Type 2 diabetes mellitus without complication E11.9 ; Essential hypertension I10 ; Hypercholesterolemia E78.00 ; Gastroesophageal reflux disease, esophagitis presence not specified K21.9 ; Generalized anxiety disorder F41.1 and Vitamin D deficiency E55.9 Chandan Younger DO [facility] [address] [place], [place] [id number] 06/17/2024 Chandan Younger Type 2 diabetes pili itus without complication E11.9 ; Essential hypertension I10 ; Hypercholesterolemia E78.00 ; Gastroesophageal reflux disease, esophagitis presence not specified K21.9 ; Generalized anxiety disorder F41.1 ; Vitamin D deficiency E55.9 and Memory loss R41.3 Chandan Younger DO, [facility] [address] [place], [place] [id number] 09/12/2023 Chandan Younger Gastroesophageal ref lux disease, esophagitis presence not specified K21.9 Chandan Younger DO, [facility] [address] [place], [place] [id number] 10/26/2023 Chandan Younger DO, [address] [id number] 11/14/2023 Chandan Younger Cardiac related sync ope R55 Chandna Younger DO, [address] [id number] 11/19/2023 Chandan Garvinman Chandan Younger DO, [address] [id number] 10/31/2023 Chandan Younger Frequent falls R29.6 ; Type 2 diabetes mellitus without complication E11.9 ; Essential hypertension I10 ; Hypercholesterolemia E78.00 ; Gastroesophageal reflux disease, esophagitis presence not specified K21.9 and Vitamin D deficiency E55.9 ASSESSMENTS Encounter Date Diagnosis Assessment Notes Treatment Notes Treatment Clinical Notes 12/18/2023 Type 2 diabetes pili itus without complication (ICD-10 - E11.9) 12/18/2023 Frequent falls (ICD- 10 - R29.6) No further falls reported. Saw Physical Therapy 06/17/2024 Essential hypertensi on (ICD-10 - I10) 06/17/2024 Type 2 diabetes pili itus without complication (ICD-10 - E11.9) 09/12/2023 Gastroesophageal ref lux disease, esophagitis presence not specified (ICD-10 - K21.9) 11/14/2023 Cardiac related sync ope (ICD-10 - R55) 10/31/2023 Type 2 diabetes pili itus without complication (ICD-10 - E11.9) 10/31/2023 Frequent falls (ICD- 10 - R29.6) 12/18/2023 Essential hypertensi on (ICD-10 - I10) 06/17/2024 Hypercholesterolemia (ICD-10 - E78.00) 10/31/2023 Essential hypertensi on (ICD-10 - I10) 12/18/2023 Hypercholesterolemia (ICD-10 - E78.00) 06/17/2024 Gastroesophageal ref lux disease, esophagitis presence not specified (ICD-10 - K21.9) 10/31/2023 Hypercholesterolemia (ICD-10 - E78.00) 12/18/2023 Gastroesophageal ref lux disease, esophagitis presence not specified (ICD-10 - K21.9) 06/17/2024 Generalized anxiety disorder (ICD-10 - F41.1) 10/31/2023 Gastroesophageal ref lux disease, esophagitis presence not specified (ICD-10 - K21.9) 12/18/2023 Generalized anxiety disorder (ICD-10 - F41.1) 06/17/2024 Vitamin D deficiency (ICD-10 - E55.9) 10/31/2023 Vitamin D deficiency (ICD-10 - E55.9) 12/18/2023 Vitamin D deficiency (ICD-10 - E55.9) 06/17/2024 Memory loss (ICD-10 - R41.3) PLAN OF TREATMENT Pending Test Test Name Order Date CBC w DIFF 06/17/2024 LIPOPROTEIN FRACTIONATION (LIPID PANEL) 06/20/2023 LIPOPROTEIN FRACTIONATION (LIPID PANEL) 06/17/2024 PROFILE, FASTING 06/20/2023 PROFILE, FASTING 06/17/2024 TSH (THYROID STIMULATING HORMONE) 2023 VITAMIN D 25-OH TOTAL 06/17/2024 Holter Monitor 10/31/2023 Holter Monitor 11/14/2023 Urinalysis and Microscopic 07/18/2022 Urinalysis and Microscopic 06/17/2024 Urinalysis and Microscopic 06/20/2023 Microalbumin, Random 06/20/2023 Microalbumin, Random 07/18/2022 Microalbumin, Random 06/17/2024 Hemoglobin A1c 06/17/2024 Insurance Providers Payer Name Payer Address Payer Phone Subscriber Number Group Number Insured Name Patient Relationship to Insured Coverage Start Date Coverage End Date MEDICARE [address] [place] [phone] [id number] Shannan Dickson Self - patient is the insured MED[employer] [address] [place] [address] [phone] [id number] Shannan Dickson Self - patient is the insured MEDICAL (GENERAL) HISTORY Medical History History ICD Code hypertension hypercholesterolemia hypertriglyceridemia type II diabetes mellitus allergies to dogs, cats, eggs, milk, cruzito ad, flour atypical chest pain with a negative SPEC T myocardial perfusion scan hearing loss tinea corporis vitamin D deficiency left elbow fracture s/p surgery breast cancer s/p lumpectomy and RT, lau oxifen and arimidex uterine prolapse ovarian cyst Dupytrens contracture Penicillin allergy-anaphylaxis anxiety disorder Sarcoma deep venous thrombosis Dysthymia F34.1 Frequent falls R29.6 Surgical History Surgery Date(Month/Year) tonsillectomy wisdom teeth extraction hysterectomy salpingo-oophorectomy, 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
--- OUTSIDE RECORDS SUMMARY | 2024-08-28 11:16 | XMS_ITS ---
Author Organization Chandan Younger DO [facility] Address [address] [place], [place] [id number] Care Team Providers Care Coater Operator Name Role Phone Aren Chandan Primary Care Provider REASON FOR VISIT Message SOCIAL HISTORY Sex Assigned At : Social History Observation Description Sex Assigned At Female Encounters Encounter Location Date Provider Diagnosis Chandan Younger DO, FACP [address] [place], [place] [phone] 11/19/2023 Chandan Younger PLAN OF TREATMENT No Information
--- OUTSIDE RECORDS SUMMARY | 2024-08-28 11:16 | XMS_ITS ---
Author Organization [facility] Address [address] [facility] [place] [address] Care Team Providers Care Acid Conditioning Worker Name Role Phone Chandan Younger MD Primary Care Provider Unavail able Rosa Elena Mulligan Unavailable [phone] Saravanan Holloway Unavailable [phone] Allergies Allergen (clinical drug ingredient) Drug/Non Drug Allergy documented on EMR Reaction Allergy Type Onset Date Status Penicillin anaphylaxis Drug Allergy Acti ve REASON FOR VISIT At Risk Footcare, PCP - 01/01 Medications Medication SIG (Take, Route, Frequency, Duration) Notes Start Date End Date Status Extra Depth Diabetic Shoes with 3 Pair Custom heat-molded multi-density innersoles for 1 year Dx: A ctive Chlorhexidine Gluconate Not-Taking Lisinopril Not-Takin g Calcium + D 600-200 MG-UNIT 1 tablet with food Orally Once a day Not-Taking Lantus 100 0.02 ml Subcutaneous Once a day Not-Taking Extra Depth Diabetic Shoes with 3 Pair Custom heat-molded multi-density innersoles for 1 year Dx: 02/10/2016 N ot-Taking metFORMIN HCl ER 500 MG 1 tablet with ev ening meal Orally TID Not-Taking Extra-Depth Diabetic Shoes with 3 Pair Custom heat-molded multi-density innersoles . for 1 year . Dx:Niddm with neuropathy, foot deformity and preulcerative skin lesions for . 12/25/2013 Not-Taking Escitalopram Oxalate 20 MG 0.5 tablet Orally Once a day Not-Taking Basaglar KwikPen Not -Taking Motrin Not-Taking Extra Depth Diabetic Shoes with 3 Pair Custom heat-molded multi-density innersoles for 1 year Dx: A ctive ZyrTEC Allergy 10 MG 1 tablet Orally Onc e a day Active Multivitamins Orally Not-Ta mina Vitamin D 1000 UNIT 1 tablet Orally Once a day for 30 day(s) Active FLUoxetine HCl 40 MG 1 capsule Orally On ce a day for 30 days Active Aspirin 81 MG 1 tablet Orally Once a day Active Omeprazole 20 MG 1 capsule Orally Onc e a day for 30 day(s) Active metFORMIN HCl 500 MG Oral for 90 Active Soliqua 100-33 UNT-MCG/ML Subcutaneous for 50 16 Active Atorvastatin Calcium Active Social History Tobacco Use: Social History Observation Description Date Details (start date - stop date) Former Smoker NA - NA Tobacco Use/Smoking Question Answer Notes Are you a: former smoker Additional Findings: Tobacco Non-User Current no n-smoker Alcohol Screen Question Answer Notes Did you have a drink containing alcohol in the p ast year? No Points 0 Interpretation Negative Tobacco use other than smoking: Question Answer Notes Are you an other tobacco user? No Vital Signs Blood pressure systolic 100 mm Hg 06/11/20 24 Blood pressure diastolic 60 mm Hg 024 Height 5 ft 7 in in 06/11/2024 Weight 152 lbs 06/11/2024 BMI 23.8 kg/m2 06/11/2024 Encounters Encounter Location Date Provider Diagnosis [facility] [address] [address] 06/11/2024 Saravanan Holloway Tinea unguium B35.1 ; Pain in right toe(s) M79.674 ; Pain in left toe(s) M79.675 ; Type 1 diabetes mellitus with diabetic polyneuropathy E10.42 ; Plantar fascial fibromatosis M72.2 ; Dermatitis L30.9 and Ataxic gait R26.0 Assessments Encounter Date Diagnosis (ICD Code) Assessment Notes Treatment Notes Treatment Clinical Notes Section Notes 06/11/2024 Tinea unguium (ICD-10 - B35.1) 06/11/2024 Pain in right toe(s) (ICD-10 - M79.674) 06/11/2024 Pain in left toe(s) (ICD-10 - M79.675) 06/11/2024 Type 1 diabetes mellitus with diabetic polyneuropathy (ICD-10 - E10.42) 06/11/2024 Plantar fascial fibromatosis (ICD-10 - M72.2) 06/11/2024 Dermatitis (ICD-10 - L30.9) 06/11/2024 Ataxic gait (ICD-10 - R26.0) Plan Of Treatment Medication Medication Name Sig Start Date Stop Date Notes Extra Depth Diabetic Shoes w ith 3 Pair Custom heat-molded multi-density innersoles for 1 year Dx: Next Appt Details Follow Up: 3 Months, Reason: Provider Name:Rosa Elena Saskiakenny vega, 09/22/2024 11:00:00 AM, [address] [place] [address], [id number], Procedure Notes * Category Sub-Category Detail Notes Keratoma Treatment Parring or Cutting o f Benign Hyperkeratotic Lesion(s) 92385 ( >4 Lesions) - The Benign hyperkeratotic lesions, as described above were pared, and/or cut utilizing a sterile #15 blade, tissue nippers, and/or dremel Nail Reduction Nail Reduction Trimming of dyst rophic nails performed to reduce/remove overall nail length and girth, by manual and electrical means with use of a nail nipper and/or dremel, to more viable healthy nail plate or bed tissue 6-10 (G0127) Progress Notes * Shannan DICKSONDOB:1945 (79 yo F)Acc No.[id number]:06/11/2024 Progress Note Patient:?Shannan Dickson Provider:?Saravanan Holloway DPM :1945???Age:79 Y???Sex:Female D ate:06/11/2024 Address:[address] [place], [place] [id number] Pcp:Chandan Younger MD Subjective: * Chief Complaints: * ???At Risk FootcarePCP - * HPI: ???At Risk footcare:?Pt States Last PCP Visit:?Date?12/10/2023 ???Foot Pain:?Nature:?aching.?Location:?Bottom, Midfoot, Rearfoot, LEFT.?Duration:?several months.?Onset:?unknown.?Course:?resolved.?Aggravated:?any pressure, standing, walking.? * ROS:?General/Constitutional:?Nausea?denies.?Vomiting?denies.?Hunger Thirst?denies.?Loss appetite?denies.?Chills?denies.?Fatigue?denies.?Fever?denies.?Night Sweats?admits.?Unexplained weight loss?denies.?Ophthalmologic:?Blurred vision?denies.?Red eye?denies.?HEENTM:?Dentures?denies.?Dizziness?denies.?Glasses/contacts??admits.?Retinopathy?d enies.?Blurred/double vision?denies.?TMJ?denies.?Discharge/drainage?denies.?Implants?denies.?Hard of hearing ??admits.?Difficulty chewing/swallowing/speaking?denies.?Nose bleeds?denies.?Sore mouth?denies.?Swollen glands?denies.?Respiratory:?On Oxygen?denies.?Pneumonia/pleurisy?denies.?Bronchitis?denies.?Emphysema?denies.?C oughing?denies.?Cough blood?denies.?Shortness of breath?denies.?Wheezing?denies.?Cardiovascular:?Pacemaker?denies.?MVP?denies.?WPW?denies.?CHF?denies.?Heart attack?denies.?Septal defect?denies.?Rapid beat?denies.?Chest pain ?denies.?Atrial Fib.?denies.?Murmur/Palpitations?denies.?Gastrointestinal:?Hemorrhoids?denies.?Stomach/Abdominal pain?denies.?Dark blood stool?denies.?Irritable bowel ?denies.?Constipation?denies.?Diarrhea?denies.?Vomiting?denies.?Hematology:?Swelling?denies.?Bruising?denies.?Bleeding problem?denies.?Genitourinary:?Blood urine?denies.?Frequent/Painfu/urination/bladder control?denies.?Kidney stones?denies.?Infection (UTI)?denies.?Nephropathy?denies.?Musculoskeletal:?Hammertoes?denies.?Bunions?denies.?Scoliosis/kyphosis?denies.?Muscle cramps / walking?denies.?Generalized aches and pains?denies.?Weakness?denies.?Integ.:?Red?denies.?Scars?denies.?Corns/calluses?denies.?Ingrown nails?denies.?Painful nails?denies.?Rashes?denies.?Neurologic:?Difficulty sleeping?denies.?Bipolar?denies.?Brain disorder?denies.?Balance trouble?denies.?Confusion?denies.?Fainting/blackouts?denies.?Headache?denies.?Tr emors?denies.? * Medical History:? * Surgical History:?hysterceto my 2000elbow sx 2004lumpectomy 2001Right Hand surgery 10/02/19 * Hospitalization/Major Diagno stic Procedure:?Patient went to [facility] for allergic reaction to PCN. 03/04/2014 * Family History:?Mother: carlito tillman, diagnosed with Family history of arthritis.?Father: , diagnosed with Unspecified cerebral artery occlusion with cerebral infarction, Other malignant neoplasm of unspecified site.?Daughter(s): alive.? * Social History:?Tobacco Use:?Tobacco Use/Smoking?Are you a:?former smoker ?Additional Findings: Tobacco Non-User?Current non-smoker ?Tobacco use other than smoking?Are you an other tobacco user??No ???Drugs/Alcohol:?Drugs?Have you used drugs other than those for medical reasons in the past 12 months??No ?Alcohol Screen?Did you have a drink containing alcohol in the past year??No ?Points?0 ?Interpretation?Negative ???Miscellaneous:?Caffeine: yes, 3-5 cups per day. ?Children: yes, 3. ?Exercise: yes, walking. ?Marital status: . 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 * Medications:?TakingExtra Dep th Diabetic Shoes with 3 Pair Custom heat-molded multi-density innersoles for 1 year Dx:Atorvastatin Calcium Aspirin 81 MG Tablet Chewable 1 tablet Orally Once a dayFLUoxetine HCl 40 MG Capsule 1 capsule Orally Once a daymetFORMIN HCl 500 MG Tablet Oral Omeprazole 20 MG Capsule Delayed Release 1 capsule Orally Once a daySoliqua 100-33 UNT-MCG/ML Solution Pen-injector Subcutaneous , Notes: 16Vitamin D 1000 UNIT Tablet 1 tablet Orally Once a dayZyrTEC Allergy 10 MG Tablet 1 tablet Orally Once a dayExtra Depth Diabetic Shoes with 3 Pair Custom heat-molded multi-density innersoles for 1 year Dx:Taking Extra Depth Diabetic Shoes with 3 Pair Custom heat-molded multi-density innersoles for 1 year Dx:Taking Atorvastatin Calcium Taking Aspirin 81 MG Tablet Chewable 1 tablet Orally Once a dayTaking FLUoxetine HCl 40 MG Capsule 1 capsule Orally Once a dayTaking metFORMIN HCl 500 MG Tablet Oral Taking Omeprazole 20 MG Capsule Delayed Release 1 capsule Orally Once a dayTaking Soliqua 100-33 UNT-MCG/ML Solution Pen-injector Subcutaneous , Notes: 16Taking Vitamin D 1000 UNIT Tablet 1 tablet Orally Once a dayTaking ZyrTEC Allergy 10 MG Tablet 1 tablet Orally Once a dayTaking Extra Depth Diabetic Shoes with 3 Pair Custom heat-molded multi-density innersoles for 1 year Dx:Not-Taking/PRNMultivitamins Capsule Orally Motrin Extra Depth Diabetic Shoes with 3 Pair Custom heat-molded multi-density innersoles for 1 year Dx:Extra-Depth Diabetic Shoes with 3 Pair Custom heat-molded multi-density innersoles . . for 1 year . Dx:Niddm with neuropathy, foot deformity and preulcerative skin lesionsmetFORMIN HCl ER 500 MG Tablet Extended Release 24 Hour 1 tablet with evening meal Orally TIDBasaglar KwikPen Escitalopram Oxalate 20 MG Tablet 0.5 tablet Orally Once a dayLantus 100 Solution 0.02 ml Subcutaneous Once a dayCalcium + D 600-200 MG- UNIT Tablet 1 tablet with food Orally Once a dayLisinopril Chlorhexidine Gluconate Medication List reviewed and reconciled with the patientNot-Taking/PRN Multivitamins Capsule Orally Not-Taking/PRN Motrin Not-Taking/PRN Extra Depth Diabetic Shoes with 3 Pair Custom heat-molded multi-density innersoles for 1 year Dx:Not-Taking/PRN Extra-Depth Diabetic Shoes with 3 Pair Custom heat-molded multi-density innersoles . . for 1 year . Dx:Niddm with neuropathy, foot deformity and preulcerative skin lesionsNot-Taking/PRN metFORMIN HCl ER 500 MG Tablet Extended Release 24 Hour 1 tablet with evening meal Orally TIDNot-Taking/PRN Basaglar KwikPen Not- Taking/PRN Escitalopram Oxalate 20 MG Tablet 0.5 tablet Orally Once a dayNot-Taking/PRN Lantus 100 Solution 0.02 ml Subcutaneous Once a dayNot-Taking/PRN Calcium + D 600-200 MG-UNIT Tablet 1 tablet with food Orally Once a dayNot-Taking/PRN Lisinopril Not-Taking/PRN Chlorhexidine Gluconate Medication List reviewed and reconciled with the patient * Allergies:?Penicillin: anaph ylaxis - Allergyyes[Allergies Verified] Objective: * Vitals:?Ht: 5 ft 7 in, Wt: 1 52, BMI: 23.8, Shoe size: 8.5, BP: 100/60 mm Hg, BS: 120, Wt-k.95 kg. * ???Past Orders: ???Lab:HEMOGLOBIN A1C (GLYCO HEMOGLOBIN) (Order Date - 05/21/2024) (Collection Date - 05/21/2024) ? Value Reference Range ?TOTAL HEMOGLOBIN (HGBA1C) 5.7 * Examination: ???Neurological: ?SENSORY:?Neurological exam demonstrates, reduced light touch sensation, reduced vibration sensation, at Forefoot, at Midfoot, B/L--right more severe loss, 5.07 monofilament test performed at plantar aspects of 5 varied sites per foot shows sensation, reduced , B/L.?General Examination: ?GENERAL APPEARANCE:?pleasant, alert, well nourished, well developed, well hydrated, with good attention to hygene/body habitus, and in no acute distress.?ORIENTED:?person,place, and time.?FOOT EXAM:?Vascular: ?DP PULSES(B):?2/4, B/L.?PT PULSES(B):? 0/4, B/L.?CAPILLARY FILL TIME:?3 secs. per digit. B/L.?TROPHIC CONDITION-TEXTURE/ELASTICITY/TURGOR/HAIR GROWTH(B):?normal, B/L.?TEMPERTURE GRADIENT(C):?normal, B/L.?PIGMENTATION:?normal, B/L.?EDEMA(C):?1/4, B/L, Feet, Ankle(s), Leg(s).?Nails: ?NAILS are:?Elongated, overgrown, dystrophic, lytic, greater than 3mm thick, discolored and friable with crumbly malodorous subungual debris, with dull to no pain on palpation due to neuropathy, T3, remaining nails are elongated, overgrown, and dystrophic.?Dermatologic: ?SKIN FINDINGS:? Skin exam reveals keratotic lesion(s) located at, TA, T5, SUB MTH (s), 1, 5, B/L, SUB MTH (s), 2, Left, Skin shows sign(s) of, cyst(s)--fibroma plantar left arch 1.5cm in cheryl and 6mm lesion plantar right medial band of pf.?Orthopedic: ?MUSCLE STRENGTH:?5/5 all groups in a symmetrical fashion , B/L.?BUNION:?Medially prominent 1st MPJ, B/L, Lateral tracking 1st MPJ reducable.?FOOTWEAR:?good condition.?Heel Pain: ?INSPECTION:? Pain on Palpation to Plantar Fascia med. and central bands, intrinsic musc., infracalcaneal bursa, and med calc tubercle , left heel .?Ophthalmology Referral: ?DIABETES EYE EXAM? Assessment: * Assessment: 1.?Tinea unguium - B35.1 (Pr imary)?2.?Pain in right toe(s) - M79.674?3.?Pain in left toe(s) - M79.675?4.?Type 1 diabetes mellitus with diabetic polyneuropathy - E10.42?5.?Plantar fascial fibromatosis - M72.2?6.?Dermatitis - L30.9?7.?Ataxic gait - R26.0? Plan: * Treatment: * Procedures:?Keratoma Treatment:?Parring or Cutting of Benign Hyperkeratotic Lesion(s)?84354 ( >4 Lesions) - The Benign hyperkeratotic lesions, as described above were pared, and/or cut utilizing a sterile #15 blade, tissue nippers, and/or dremel.?Nail Reduction:?Nail Reduction?Trimming of dystrophic nails performed to reduce/remove overall nail length and girth, by manual and electrical means with use of a nail nipper and/or dremel, to more viable healthy nail plate or bed tissue 6-10 (G0127).? * Procedure Codes:?87849 TRIM SKIN LESIONS, OVER 4, Modifiers: XS G0127 TRIMMING DYSTROPHIC NAILS ANY #, Modifiers: XS * Follow Up:?3 Months * Images: * Sign off status: Completed true * Provider:Yamilet Holloway DPM Date:? 024 Generated for Greeri sridevi/Kenney/eTransmitting on:?08/28/2024 11:16 AM EST History and Physical Notes * HPI (History of Present Illness) Category Sub-Category Detail Notes Category Not es At Risk footcare Pt States Last PCP Visit: Date: Foot Pain Nature: aching Location: Bottom, Midfoot, [place] rfoot, LEFT Duration: several months Onset: unknown Course: resolved Aggravated: any pressure, standi ng, walking Examination Category Sub-Category Detail Notes Category Not es Neurological SENSORY: Neurological exa m demonstrates, reduced light touch sensation, reduced vibration sensation, at Forefoot, at Midfoot, B/L--right more severe loss, 5.07 monofilament test performed at plantar aspects of 5 varied sites per foot shows sensation, reduced , B/L Dermatologic SKIN FINDINGS: Skin exam reveal s keratotic lesion(s) located at, TA, T5, SUB MTH (s), 1, 5, B/L, SUB MTH (s), 2, Left, Skin shows sign(s) of, cyst(s)--fibroma plantar left arch 1.5cm in cheryl and 6mm lesion plantar right medial band of pf Orthopedic BUNION: Medially promine nt 1st MPJ, B/L, Lateral tracking 1st MPJ reducable FOOTWEAR: good condition MUSCLE STRENGTH: 5/5 all groups in a symmetrical fashion , B/L General Examination GENERAL APPEARANCE: pleasant , alert, well nourished, well developed, well hydrated, with good attention to hygene/body habitus, and in no acute distress FOOT EXAM: Lower Extremity Neurological Exa m performed:: Yes Visual exam of foot performed:: Yes Date: 06/11/2024 Sensory testing performed:: sensations d iminished Pedal pulse taking performed:: 2+ ORIENTED: person,place, and ti me Ophthalmology Referral DIABETES EYE EXAM Diabetic Reti nopathy Screening:: Yes 2023 Findings of Diabetic Eye Exam:: no retin opathy Vascular DP PULSES (B): 2/4, B/L PT PULSES (B): 0/4, B/L CAPILLARY FILL TIME: 3 secs. per digit. B/L TEMPERTURE GRADIENT (C): normal, B/L TROPHIC CONDITION-TEXTURE/EL ASTICITY/TURGOR/HAIR GROWTH (B): normal, B/L EDEMA (C): 1/4, B/L, Feet, Ankl e(s), Leg(s) PIGMENTATION: normal, B/L Nails NAILS are: Elongated, overg rown, dystrophic, lytic, greater than 3mm thick, discolored and friable with crumbly malodorous subungual debris, with dull to no pain on palpation due to neuropathy, T3, remaining nails are elongated, overgrown, and dystrophic Heel Pain INSPECTION: Pain on Palpatio n to Plantar Fascia med. and central bands, intrinsic musc., infracalcaneal bursa, and med calc tubercle , left heel
--- OUTSIDE RECORDS SUMMARY | 2024-08-28 11:16 | XMS_ITS ---
Author Organization [facility] Address [address] [address] Care Team Providers Care Warehouse Traffic Supervisor Name Role Phone Chandan Younger MD Primary Care Provider Unavail able Rosa Elena Mulligan Unavailable [phone] Saravanan Holloway Unavailable [phone] Allergies Allergen (clinical drug ingredient) Drug/Non Drug Allergy documented on EMR Reaction Allergy Type Onset Date Status Penicillin anaphylaxis Drug Allergy Acti ve REASON FOR VISIT [facility] - [facility] Medications Medication SIG (Take, Route, Frequency, Duration) Notes Start Date End Date Status Extra Depth Diabetic Shoes with 3 Pair Custom heat-molded multi-density innersoles for 1 year Dx: Active Omeprazole 20 MG 1 capsule Orally Onc e a day for 30 day(s) Active Soliqua 100-33 UNT-MCG/ML Subcutaneous for 50 25 units Active Vitamin D 1000 UNIT 1 tablet Orally Once a day for 30 day(s) Active ZyrTEC Allergy 10 MG 1 tablet Orally Onc e a day Active Atorvastatin Calcium Active Aspirin 81 MG 1 tablet Orally Once a day Active Extra Depth Diabetic Shoes with 3 Pair Custom heat-molded multi-density innersoles for 1 year Dx: Active FLUoxetine HCl 20 MG 1 capsule Orally On ce a day for 30 day(s) Active metFORMIN HCl 500 MG Oral for 90 Active Chlorhexidine Gluconate Not-Taking Lisinopril Not-Takin g Lantus 100 0.02 ml Subcutaneous Once a day Not-Taking Calcium + D 600-200 MG-UNIT 1 tablet with food Orally Once a day Not-Taking Escitalopram Oxalate 20 MG 0.5 tablet Orally Once a day Not-Taking Motrin Not-Taking Extra Depth Diabetic Shoes with 3 Pair Custom heat-molded multi-density innersoles for 1 year Dx: 02/10/2016 Not-Taking Extra-Depth Diabetic Shoes with 3 Pair Custom heat-molded multi-density innersoles . for 1 year . Dx:Niddm with neuropathy, foot deformity and preulcerative skin lesions for . 12/25/2013 Not-Taking metFORMIN HCl ER 500 MG 1 tablet with ev ening meal Orally TID Not-Taking Basaglar KwikPen Not -Taking Multivitamins Orally Not-Ta Vital Signs Blood pressure systolic 120 mm Hg 03/10/20 24 Blood pressure diastolic 80 mm Hg 024 Height 5 ft 7 in in 03/10/2024 Weight 161 lbs 03/10/2024 BMI 25.21 kg/m2 03/10/2024 Encounters Encounter Location Date Provider Diagnosis [facility] [address] [place] [address] 03/10/2024 Saravanan Holloway Tinea unguium B35.1 ; Pain in right toe(s) M79.674 ; Pain in left toe(s) M79.675 ; Type 1 diabetes mellitus with diabetic polyneuropathy E10.42 ; Plantar fascial fibromatosis M72.2 ; Dermatitis L30.9 and Ataxic gait R26.0 Assessments Encounter Date Diagnosis (ICD Code) Assessment Notes Treatment Notes Treatment Clinical Notes Section Notes 03/10/2024 Tinea unguium (ICD-10 - B35.1) 03/10/2024 Pain in right toe(s) (ICD-10 - M79.674) 03/10/2024 Pain in left toe(s) (ICD-10 - M79.675) 03/10/2024 Type 1 diabetes mellitus with diabetic polyneuropathy (ICD-10 - E10.42) 03/10/2024 Plantar fascial fibromatosis (ICD-10 - M72.2) 03/10/2024 Dermatitis (ICD-10 - L30.9) 03/10/2024 Ataxic gait (ICD-10 - R26.0) Plan Of Treatment Medication Medication Name Sig Start Date Stop Date Notes Extra Depth Diabetic Shoes w ith 3 Pair Custom heat-molded multi-density innersoles for 1 year Dx: Next Appt Details Follow Up: 3 Months, Reason: Provider Name:Rosa Elena vega, 09/22/2024 11:00:00 AM, [address] [place], [address], Procedure Notes * Category Sub-Category Detail Notes Keratoma Treatment Parring or Cutting o f Benign Hyperkeratotic Lesion(s) 21104 ( >4 Lesions) - The Benign hyperkeratotic [...] Notes * Shannan DICKSONDOB:1945 (79 yo F)Acc No.[id number]:03/10/2024 Progress Note Patient:?Shannan Dickson Provider:?Saravanan Holloway DPM :1945???Age:79 Y???Sex:Female D ate:03/10/2024 Address:[address] [place], [place] [id number] Pcp:Chandan Younger MD Subjective: * Chief Complaints: * ???At Risk FootcarePCP - 2022 * HPI: ???At Risk footcare:?Pt States Last PCP Visit:?Date?12/10/2023 ???Foot Pain:?Nature:?aching.?Location:?Bottom, Midfoot, Rearfoot, LEFT.?Duration:?several months.?Onset:?unknown.?Course:?resolved.?Aggrevated:?any pressure, standing, walking.? * ROS:?General/Constitutional:?Nausea?denies.?Vomiting?denies.?Hunger Thirst?denies.?Loss appetite?denies.?Chills?denies.?Fatigue?denies.?Fever?denies.?Night [...] * Hospitalization/Major Diagno stic Procedure:?Patient went to [facility] for allergic reaction to PCN. 03/04/2014 * Medications:?TakingExtra Dep th Diabetic Shoes with 3 Pair Custom heat-molded multi-density innersoles for 1 year Dx:Atorvastatin Calcium Aspirin 81 MG Tablet Chewable 1 tablet Orally Once a dayFLUoxetine HCl 20 MG Capsule 1 capsule Orally Once a daymetFORMIN HCl 500 MG Tablet Oral Omeprazole 20 MG Capsule Delayed Release 1 capsule Orally Once a daySoliqua 100-33 UNT-MCG/ML Solution Pen-injector Subcutaneous , Notes: 25 unitsVitamin D 1000 UNIT Tablet 1 tablet Orally [...] tablet Orally Once a dayTaking FLUoxetine HCl 20 MG Capsule 1 capsule Orally Once a dayTaking metFORMIN HCl 500 MG Tablet Oral Taking Omeprazole 20 MG Capsule Delayed Release 1 capsule Orally Once a dayTaking Soliqua 100-33 UNT-MCG/ML Solution Pen-injector Subcutaneous , Notes: 25 unitsTaking Vitamin D 1000 UNIT Tablet 1 tablet [...] Objective: * Vitals:?Ht: 5 ft 7 in, Wt:16 1, BMI:25.21, Shoe size:8.5, BP:120/80 mm Hg, BS:127. * ???Past Orders: ???Lab:HEMOGLOBIN A1C (GLYCO HEMOGLOBIN) (Order Date - 03/10/2024) (Collection Date - 12/11/2023) ? Value Reference Range ?HEMOGLOBIN A1C % (HH) 6.7 * Examination: ???Neurological: ?SENSORY:?Neurological exam demonstrates, reduced [...] no acute distress.?ORIENTED:?person,place, and time.?FOOT EXAM:?Vascular: ?DP PULSES:?2/4, B/L.?PT PULSES:? 0/4, B/L.?CAPILLARY FILL TIME:?3 secs. per digit. B/L.?SKIN TEMPERTURE GRADIENT OF THE LOWER EXTERMITIES:?normal, B/L.?HAIR GROWTH/TEXTURE/ELASTICITY/TURGOR:?normal, B/L.?PIGMENTATION:?normal, B/L.?EDEMA:?1/4, B/L, Feet, Ankle(s), Leg(s).?Nails: ?NAILS are:?Elongated, overgrown, [...] Procedures:?Keratoma Treatment:?Parring or Cutting of Benign Hyperkeratotic Lesion(s)?64051 ( >4 Lesions) - The Benign hyperkeratotic lesions, as described above were pared, and/or cut utilizing a sterile #15 blade, tissue nippers, and/or dremel.?Nail Reduction:?Nail Reduction?Trimming of dystrophic nails performed to reduce/remove overall nail length and girth, by manual and electrical means with use of a nail nipper and/or dremel, to more viable healthy nail plate or bed tissue 6-10 (G0127).? * Procedure Codes:?80614 TRIM SKIN LESIONS, OVER 4, Modifiers: XS G0127 TRIMMING DYSTROPHIC NAILS ANY #, Modifiers: XS * Follow Up:?3 Months * Images: * Sign off status: Completed true * Provider:?Saravanan Holloway DPM Date:? 024 Generated for Printi ng/Faxing/eTransmitting on:?08/28/2024 11:16 AM EST History and Physical Notes * HPI (History of Present Illness) Category Sub-Category Detail Notes Category Not es At Risk footcare Pt States Last PCP Visit: Date: 4 Foot Pain Nature: aching Location: Bottom, Midfoot, [place] rfoot, LEFT Duration: several months Onset: unknown [...] Visual exam of foot performed:: Yes Date: 11/29/2022 Sensory testing performed:: sensations d iminished Pedal pulse taking performed:: 2+ ORIENTED: person,place, and ti me Ophthalmology Referral DIABETES EYE EXAM Diabeti c Retinopathy Screening:: Yes 02/08/2022, 04/2023 Findings of Diabetic Eye Exam:: no retin [...]
--- OUTSIDE RECORDS SUMMARY | 2024-08-28 11:17 | XMS_ITS | Data Portability ---
Author Organization [place] - [facility], Allergy Address [address] [place] [phone] Care Team Providers Care Rod And Tube Straightener Name Role Phone RUTHIE ZAMAN Primary Care Provider Assessment Encounter Date Assessment Date Assessment LastModified by Organization Details LastModified Time 05/15/2024 05/15/2024 79 year old female presents for cerumen removal. Cerumen impaction removed bilaterally. Bilateral TMs are intact. Follow up in 6 months for routine ear cleaning. [email or web address] Not available 05/15/2024 11:23:16 Plan of Treatment Reminders Order Date Submit Date Provider Last Modified By Organization Details Last Modified Time Details Appointments Establish ed 15 2024 10:30A M DAWN LEHMAN PA-C Not available Not available Not available Lab None recorded. Referral None recorded. Procedures None recorded. Surgeries None recorded. Imaging None recorded. Medication Orders None recorded. Patient TargetsNo targets recorded. Patient InstructionsNo instructions recorded. Reason for Referral None Reported. Results Created Date Observation Date Name Description Value Unit Range Abnormal Flag Note LastModifiedBy Organization Detail LastModifiedTime 04/29/20 24 10/25/2018 imagi ng/di agnos tic resul t No observ ation record ed. [email or web address] Not Available 23:16:45 04/29/20 24 04/09/2019 imagi ng/di agnos tic resul t No observ ation record ed. [email or web address] Not Available 23:16:55 Result Notes None recorded. Problems Name Problem SNOMED Code Status Onset Date Resolution Date Notes Provider Name and Address Organization Details Recorded Time Candidal otitis externa 49748112 Active 2019 Candidal otitis externa; Note: Date Diagnosed : 03/26/2020 10:18 AM (B37.84) Not Available [facility] 4 03:17:44 Impacted cerumen of bilateral ears 23381872186 33273 Active 2019 Impacted cerumen, bilateral ; Note: Date Diagnosed : 09/16/2019 3:17 PM (H61.23) Not Available [facility] 4 03:17:45 Sensorine ural hearing loss of bilateral ears 616343525 Active 2019 Sensorine ural hearing loss, bilateral ; Note: Date Diagnosed : 09/16/2019 3:17 PM (H90.3) Not Available [facility] 4 03:17:45 Problem Notes None recorded. Procedures Surgical History Date Name Laterality Status Provider Name and Address Organization Details Recorded Time 4 Cerumen removal without microscope bilat completed DAWN LEHMAN PA-C [address] [place] [address], [phone], [facility] - [facility] 05/15/2024 11:22:21 Imaging Results Imaging Date Name Status LastModified by Organiz ation Details LastModified Time 10/25/2018 imaging/diag nostic result completed Information not available 04/29/2024 23:16:45 04/09/2019 imaging/diag nostic result completed Information not available 04/29/2024 23:16:55 Procedure Notes None recorded. Medical Equipment None Reported. Allergies Allergen ID Allergen Name Allergen Category Reaction Reaction Severity Criticality Documentation Date Start Date Code Code System Note Provider Name and Address Organization Details Recorded Time 966923 penicilli n V potassium medicatio n other Not available Not available 01/22/202482352 5 RxNorm React ion: unkno wn, unspe cifie d;; Not Available [facility] 4 01:25:20 Medications Name Sig Start Date Stop Date Status Note LastModified by Organization Details LastModified Time fluoxetin e 40 mg capsule TAKE 1 CAPSULE BY MOUTH EVERY DAY FOR 90 DAYS active Not Available Not Available No t Available atorvasta tin 40 mg tablet TAKE 1 TABLET BY MOUTH EVERY DAY FOR 90 DAYS active Not Available Not Available No t Available metformin 500 mg tablet TAKE TWO TABLETS IN THE MORNING WITH MEAL active Not Available Not Available No t Available atorvasta tin 20 mg tablet 11/22 completed Medicati on ID: [id number] D uration Value: 90 Brand Name: atorvast atin Sen d Method: E-Prescr ibed Sub s Allowed: subs OK Speci al Instruct ion: TAKE 1 TABLET BY MOUTH EVERY DAY Medi cationGe nericNam e: atorvast atin Not Available Not Available Not Available clotrimaz ole 1 % topical solution 2019 active Medicati on ID: [id number] D uration Value: 28 Prescri bed By Name: ANDREW Ball nd Name: clotrima zole Sen d Method: E-Prescr ibed Sub s Allowed: subs MEKA Specfrederic al Instruct ion: 4 drops to both ears BID x 4 weeks Me dication GenericN yvette: clotrima zole Not Available Not Available Not Available omeprazol e 20 mg capsule,d elayed release TAKE 1 CAPSULE BY MOUTH EVERY DAY 30 MINUTES BEFORE MORNING MEAL FOR 90 DAYS active Not Available Not Available No t Available fluoxetin e 20 mg capsule 11/22 completed Medicati on ID: [id number] D uration Value: 90 Brand Name: fluoxeti ne Send Method: E-Prescr ibed Sub s Allowed: subs OK Medic Kit ericName : fluoxeti ne Not Available Not Available Not Available metformin ER 500 mg tablet,ex tended release 24 hr 11/22 completed Medicati on ID: [id number] D uration Value: 90 Brand Name: metformi n Send Method: E-Prescr ibed Sub s Allowed: subs MEKA Diaz al Instruct ion: TAKE 3 TABLETS BY MOUTH DAILY Me dication GenericN yvette: metformi n Not Available Not Available Not Available multivita min 11/22 completed Medicati on ID: [id number] B rand Name: multivit diaz Sen d Method: E-Prescr ibed Sub s Allowed: subs OK Medic ationGen ericName : multivit diaz Not Available Not Available Not Available Vitamin D3 50 mcg (2,000 unit) tablet 11/22 completed Medicati on ID: [id number] B rand Name: Vitamin D3 Send Method: E-Prescr ibed Sub s Allowed: subs OK Medic ationGen ericName : Vitamin D3 Not Available Not Available Not Available Zyrtec 10 mg capsule Take 1 capsule by mouth once a day as needed 11/22 completed Medicati on ID: [id number] D uration Value: 1 Brand Name: Zyrtec S end Method: E-Prescr ibed Sub s Allowed: subs OK Medic ationGen ericName : Zyrtec Not Available Not Available Not Available Basaglar KwikPen U-100 Insulin 100 unit/mL (3 mL) subcutane ous 11/22 completed Medicati on ID: [id number] D uration Value: 90 Brand Name: Basaglar KwikPen U-100 Insulin Send Method: E-Prescr ibed Sub s Allowed: subs OK Speci al Instruct ion: INJECT 46 UNITS UNDER THE SKIN DAILY. M ruthann Rao Name: Basaglar KwikPen U-100 Insulin Not Available Not Available Not Available Soliqua 100/33 100 unit-33 mcg/mL subcutane ous insulin pen INJECT 28 UNITS UNDER THE SKIN DAILY active Not Available Not Available No t Available BD Aleah 2nd Gen Pen Needle 32 gauge x 5/32 INJECT 1 EACH UNDER THE SKIN EVERY MORNING. active Not Available Not Available No t Available aspirin 81 mg capsule 11/22 completed Medicati on ID: [id number] B rand Name: Aspir-81 Send Method: E-Prescr ibed Sub s Allowed: subs OK Medic ationGen ericName : Aspir-81 Not Available Not Available Not Available Vitals Date Recorded Body height Body mass index (BMI) Body weight Provider Name and Address Organization Details Last Updated DateTime 05/15/2024 170.18 cm 24 kg/m2 47209.63 g Shania Avalos [place] - [facility] 05/15/2024 11:22:38 Social History None recorded. Functional Status None recorded. Mental Status None recorded. Family History Nothing Reported. Medical History No medical history recorded. Gynecological HistoryNo gynecological history recorded. Obstetrics History GPAL:G 0 P 0 0 0 0 Past Encounters Encounter ID Performer Location Encounter Start Date Encounter Closed Date Diagnosis/Indication Diagnosis SNOMED-CT Code Diagnosis ICD10 Code [id number] MIRLANDE APONTE MD [facility] [address] [place] [address] 05/15/2024 11:11:41 05/15/2024 11:34:21 Impacted cerumen of bilateral ears 9000979871 910725 H61.23 Health Concerns Section Related Observation LastModified by Organization Detai ls LastModified Time None Recorded Concern Status LastModified by Organization Details LastModified Time None Recorded Advance Directives Directive None Recorded Payers Encounter Date Sequence Insurance Name Policy Number Policy Valle Covered Member ID Valle Member ID Guarantor Name 05/15/2024 1 [place] [employer] Shannan L Layzer [id number] Shannan L Layzer 05/15/2024 2 [place] [id number] Shannan L Layzer [id number] Shannan L Layzer Notes Date Note Type Note Provider Name and Address Organization Details Recorded Time 05/15/2024 text/html 79 year old female presents for cerumen removal. No concerns today. MIRLANDE APONTE MD [address] [address], [place], [address], [facility] - [facility] 05/15/2024 16:31:26 OBGyn Episode No OBEpisode recorded.
--- OUTSIDE RECORDS SUMMARY | 2024-08-28 11:17 | XMS_ITS ---
Author Organization [facility] Address [address] [place] [address] Care Team Providers Care Security Alarm Installer Name Role Phone Chandan Younger MD Primary Care Provider Unavail able Rosa Elena Mulligan Unavailable [phone] Saravanan Holloway Unavailable [phone] Allergies Allergen (clinical drug ingredient) Drug/Non Drug Allergy documented on EMR Reaction Allergy Type Onset Date Status Penicillin anaphylaxis Drug Allergy Acti ve REASON FOR VISIT [facility] - 01/[facility]23 Medications Medication SIG (Take, Route, Frequency, Duration) Notes Start Date End Date Status Escitalopram Oxalate 20 MG 0.5 tablet Orally Once a day Not-Taking Lantus 100 0.02 ml Subcutaneous Once a day Not-Taking Calcium + D 600-200 MG-UNIT 1 tablet with food Orally Once a day Not-Taking Lisinopril Not-Takin g Chlorhexidine Gluconate Not-Taking Extra-Depth Diabetic Shoes with 3 Pair Custom heat-molded multi-density innersoles . for 1 year . Dx:Niddm with neuropathy, foot deformity and preulcerative skin lesions for . 12/25/2013 Not-Taking metFORMIN HCl ER 500 MG 1 tablet with ev ening meal Orally TID Not-Taking Basaglar KwikPen Not -Taking Motrin Not-Taking Extra Depth Diabetic Shoes with 3 Pair Custom heat-molded multi-density innersoles for 1 year Dx: 02/10/2016 Not-Taking Soliqua 100-33 UNT-MCG/ML Subcutaneous for 50 25 units Active Vitamin D 1000 UNIT 1 tablet Orally Once a day for 30 day(s) Active ZyrTEC Allergy 10 MG 1 tablet Orally Onc e a day Active Extra Depth Diabetic Shoes with 3 Pair Custom heat-molded multi-density innersoles for 1 year Dx: Active Multivitamins Orally Not-Ta mina Aspirin 81 MG 1 tablet Orally Once a day Active FLUoxetine HCl 20 MG 1 capsule Orally On ce a day for 30 day(s) Active metFORMIN HCl 500 MG Oral for 90 Active Omeprazole 20 MG 1 capsule Orally Onc e a day for 30 day(s) Active Atorvastatin Calcium Active Extra Depth Diabetic Shoes with 3 Pair Custom heat-molded multi-density innersoles for 1 year Dx: Active Social History Tobacco Use: Social History [...] Are you an other tobacco user? No Problems Problem Type SNOMED Code ICD Code Onset Dates Problem Status W/U Status Risk Notes Problem Ataxic gait (34381427) Ataxic gait (R26.0) Active confirmed Vital Signs Blood pressure systolic 120 mm Hg 12/10/19 24 Blood pressure diastolic 80 mm Hg 024 Height 5 ft 7 in in 12/10/2023 Weight 161 lbs 12/10/2023 BMI 25.21 kg/m2 12/10/2023 Encounters Encounter Location Date Provider Diagnosis [facility] [address] [place] [address] 12/10/2023 Saravanan Holloway Tinea unguium B35.1 ; Pain in right toe(s) M79.674 ; Pain in left toe(s) M79.675 ; Type 1 diabetes mellitus with diabetic polyneuropathy E10.42 ; Plantar fascial fibromatosis M72.2 ; Dermatitis L30.9 and Ataxic gait R26.0 Assessments Encounter Date Diagnosis (ICD Code) Assessment Notes Treatment Notes Treatment Clinical Notes Section Notes 12/10/2023 Tinea unguium (ICD-10 - B35.1) 12/10/2023 Pain in right toe(s) (ICD-10 - M79.674) 12/10/2023 Pain in left toe(s) (ICD-10 - M79.675) 12/10/2023 Type 1 diabetes mellitus with diabetic polyneuropathy (ICD-10 - E10.42) 12/10/2023 Plantar fascial fibromatosis (ICD-10 - M72.2) 12/10/2023 Dermatitis (ICD-10 - L30.9) 12/10/2023 Ataxic gait (ICD-10 - R26.0) Plan Of Treatment Medication Medication Name Sig Start Date Stop Date Notes Extra Depth Diabetic Shoes w ith 3 Pair Custom heat-molded multi-density innersoles for 1 year Dx: Next Appt Details Follow Up: 3 Months, Reason: Provider Name:Rosa Elena Saskiakenny vega, 09/22/2024 11:00:00 AM, [address] [place] [address], [phone], Procedure Notes * Category Sub-Category Detail Notes Keratoma Treatment Parring or Cutting o f Benign Hyperkeratotic Lesion(s) 76263 ( >4 Lesions) - The Benign hyperkeratotic [...] 6-10 (G0127) Progress Notes * Shannan DICKSONDOB:1945 (78 yo F)Acc No.[id number]:12/10/2023 Progress Note Patient:?Shannan Dickson Provider:?Saravanan Holloway DPM :1945???Age:78 Y???Sex:Female D ate:12/10/2023 Address:[address] [place] [address] [address] h[address] [facility] Pcp:Chandan Younger MD Subjective: * Chief Complaints: * ???At Risk FootcarePCP - 2022 * HPI: ???At Risk footcare:?Pt States Last PCP Visit:?Date?10/11/2023 ???Foot Pain:?Nature:?aching.?Location:?Bottom, Midfoot, Rearfoot, LEFT.?Duration:?several months.?Onset:?unknown.?Course:?worse.?Aggrevated:?any pressure, standing, walking.?Severity/Quality:?States pain 8 on a scale to max of 10.? * ROS:?General/Constitutional:?Nausea?denies.?Vomiting?denies.?Hunger Thirst?denies.?Loss appetite?denies.?Chills?denies.?Fatigue?denies.?Fever?denies.?Night Sweats?admits.?Unexplained weight loss?denies.?Ophthalmologic:?Blurred [...] * Hospitalization/Major Diagno stic Procedure:?Patient went to [facility] for allergic reaction to PCN. 03/04/2014 [...] yes, walking. ?Marital status: . 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 * Medications:?TakingExtra Dep th Diabetic Shoes [...] 1, BMI:25.21, Shoe size:8.5, BP:120/80 mm Hg, BS:150. * ???Past Orders: ???Lab:HEMOGLOBIN A1C (GLYCO HEMOGLOBIN) (Order Date - 04/04/2023) (Collection Date - 01/09/2023) ? Value Reference Range ?HEMOGLOBIN A1C % (HH) 7.3 * Examination: ???Neurological: ?SENSORY:?Neurological exam demonstrates, reduced [...] Procedures:?Keratoma Treatment:?Parring or Cutting of Benign Hyperkeratotic Lesion(s)?04431 ( >4 Lesions) - The Benign hyperkeratotic lesions, as described above were pared, and/or cut utilizing a sterile #15 blade, tissue nippers, and/or dremel.?Nail Reduction:?Nail Reduction?Trimming of dystrophic nails performed to reduce/remove overall nail length and girth, by manual and electrical means with use of a nail nipper and/or dremel, to more viable healthy nail plate or bed tissue 6-10 (G0127).? * Procedure Codes:?93824 TRIM SKIN LESIONS, OVER 4, Modifiers: XS G0127 TRIMMING DYSTROPHIC NAILS ANY #, Modifiers: XS * Preventive Medicine:? ??Counseling:?Discussion:?-14: Office or other outpatient visit for the evaluation and management of an established patient, which required a medically appropriate history and/or examination and MODERATE level of DECISION MAKING for: 1 OR MORE CHRONIC PROBLEM(S) THATS WORSENING, 2 STABLE CHRONIC PROBLEMS, A NEWLY DIAGNOSED PROBLEM WITH UNCERTAIN PROGNOSIS, AN ACUTE COMPLICATED INJURY WITH MULTIPLE TREATMENT OPTIONS, OR AN ACUTE PROBLEM WITH ACCOMPANYING SYSTEMIC SYMPTOMS, THAT POSE(S) A MODERATE RISK OF MORBIDITY. THIS CONDITION MAY ALSO INCLUDE RX DRUG MANAGEMENT, OR A DECISON FOR MINOR SURGERY. The visit on the day of the encounter encompassed interpreting the data and educating the patient as to the nature of their condition, treatment options available according to their individual PMH, meds, allergies, and overall health/living conditions, as well as any potential risks or complications that may occur from a failure to adhere to, and participate in, the recommended course of therapy. The discussion included a complete verbal, and/or written explanation of the examination results, any x-rays taken, the proposed diagnosis, and outline of the treatment plan. A schedule for future care needs was also explained. The patient verbalized an understanding of the instructions at this time and agreed to be an active participant in their treatment. If the patient should think of any questions or concerns after the visit, I have encouraged the patient to call the office.?Heel pain:?FASCIITIS: I explained to the patient the possible etiologies of Plantar Fasciitis including foot type/shoegear/activity level/exercise routine and the risks/benefits of all the different treatment options for heel pain including: No treatment at all, Rest, Ice, NSAIDs(only if well tolerated after meals), New/supportive Shoegear, Strappings and Tapings, Stretching exercises, Deep Tissue Massage, Heel cups/cushions, Arch support/shoe inserts, Custom orthoses, Topical analgesics including Aspercream/Voltaren gel, Night splint AFO for am stiffness, Cortisone injection therapy, Cast boot with crutches/cane/or walker for assisted ambulation, Physical Therapy, EPAT/ESWT, Interfil injection therapy, as well as surgical [place]/Endoscopic Fasciitomy surgical procedures if needed. Recommendations were made to limit barefoot walking, eliminate wearing nonsupportive shoegear (i.e. flip-flops or sandals, or a shoe with an easily bendable, foldable, or twistable sole) and wear shoegear with a good solid sole, a supportive arch, and plenty of room for an insert/orthotic if necessary. If wearing sandals was required by the patient, we recommended orthopedic sandals such as Orthoheel or Birkenstock even while in the home. If the patient wore heels in the past, we recommended they continue, but eliminate the use of flats. The advantages and disadvantages of each option were discussed and the patients questions re: types of shoegear, custom vs prefabricated inserts, activity level, PO vs Topical medications (and their respective potential complications/drug interactions/side effects), and consistency in home treatment regimens for optimal success were answered to their satisfaction. Literature detailing plantar fasciitis and the various treatment options were dispensed and reviewed.? * Follow Up:?3 Months * Images: * Sign off status: Completed true * Provider:?Saravanan Holloway DPM Date:? 024 Generated for Lillie laureano/Kenney/eTana maríaitting on:?08/28/2024 11:16 AM EST History and Physical Notes * HPI (History of Present Illness) Category Sub-Category Detail Notes Category Not es At Risk footcare Pt States Last PCP Visit: Date: 4 Foot Pain Nature: aching Location: Bottom, Midfoot, Marisa rfoot, LEFT Duration: several months Onset: unknown Course: worse Aggravated: any pressure, standi ng, walking Severity/Quality: States pain 8 on a s gaby to max of 10 Examination Category Sub-Category Detail Notes Category Not [...]
--- OUTSIDE RECORDS SUMMARY | 2024-08-28 11:17 | XMS_ITS | Patient Health Record ---
Author Organization [facility] Address [address] [facility] [place] [address] Care Team Providers Care Taxonomy Teacher Name Role Phone Chandan Younger MD Primary Care Provider Unavail able Rosa Elena Mulligan Unavailable [phone] Saravanan Holloway Unavailable [phone] Allergies Allergen (clinical drug ingredient) Drug/Non Drug Allergy documented on EMR Reaction Allergy Type Onset Date Status Penicillin anaphylaxis Drug Allergy Acti ve Results Component Value Reference Range Notes HEMOGLOBIN A1C (GLYCOHEMOGLO BIN) Reviewed date:03/10/2024 10:57:10 AM Interpretation: Performing Lab: Notes/Report: HEMOGLOBIN A1C % (HH) 6.7 HEMOGLOBIN A1C (GLYCOHEMOGLO BIN) Reviewed date:06/11/2024 01:30:20 PM Interpretation: Performing Lab: Notes/Report: TOTAL HEMOGLOBIN (HGBA1C) 5.7 Reason For Referral No Information Medications Medication SIG (Take, Route, Frequency, Duration) Notes Start Date End Date Status Atorvastatin Calcium Active Extra Depth Diabetic Shoes with 3 Pair Custom heat-molded multi-density innersoles for 1 year Dx: 02/10/2016 N ot-Taking Motrin Not-Taking Extra Depth Diabetic Shoes with 3 Pair Custom heat-molded multi-density innersoles for 1 year Dx: A ctive FLUoxetine HCl 40 MG 1 capsule Orally On ce a day for 30 days Active metFORMIN HCl ER 500 MG 1 tablet with ev ening meal Orally TID Not-Taking Aspirin 81 MG 1 tablet Orally Once a day Active Extra-Depth Diabetic Shoes with 3 Pair Custom heat-molded multi-density innersoles . for 1 year . Dx:Niddm with neuropathy, foot deformity and preulcerative skin lesions for . 12/25/2013 Not-Taking Extra Depth Diabetic Shoes with 3 Pair Custom heat-molded multi-density innersoles for 1 year Dx: A ctive Chlorhexidine Gluconate Not-Taking ZyrTEC Allergy 10 MG 1 tablet Orally Onc e a day Active Lisinopril Not-Takin g Multivitamins Orally Not-Ta mnia Omeprazole 20 MG 1 capsule Orally Onc e a day for 30 day(s) Active Escitalopram Oxalate 20 MG 0.5 tablet Orally Once a day Not-Taking metFORMIN HCl 500 MG Oral for 90 Active Basaglar KwikPen Not -Taking Vitamin D 1000 UNIT 1 tablet Orally Once a day for 30 day(s) Active Calcium + D 600-200 MG-UNIT 1 tablet with food Orally Once a day Not-Taking Soliqua 100-33 UNT-MCG/ML Subcutaneous for 50 16 Active Lantus 100 0.02 ml Subcutaneous Once a day Not-Taking Immunizations Vaccine Route Administration Date Status Comme nts COVID-19 Moderna Vaccine Unknown 09/06/2021 Administered 1st 11/10/2020 2nd 12/11/2020 Influenza Unknown 06/10/2022 Administered Influenza Unknown 05/14/2023 Administered Social History Tobacco Use: Social History Observation [...] Problem Status W/U Status Risk Notes Problem Polyneuropathy due to diabetes mellitus type I (755737266) Type 1 diabetes mellitus with diabetic polyneuropathy (E10.42) Active confirmed Problem Ataxic gait (21215203) Ataxic gait (R26.0) Active confirmed Problem Polyneuropathy due to type 2 diabetes mellitus (671717174) Type 2 diabetes mellitus with diabetic polyneuropathy (E11.42) Active confirmed Problem Polyneuropathy due to diabetes mellitus type I (616135827) Type 1 diabetes mellitus with diabetic polyneuropathy (E10.42) Active confirmed Vital Signs Blood pressure diastolic 60 mm Hg 06/11/2024 Height 5 ft 7 in in 06/11/2024 Blood pressure systolic 100 mm Hg 06/11/2024 Weight 152 lbs 06/11/2024 BMI 23.8 kg/m2 06/11/2024 Encounters Encounter Location Date Provider Diagnosis [address] [address] 12/10/2023 Saravanan Holloway Tinea unguium B35.1 ; Pain in right toe(s) M79.674 ; Pain in left toe(s) M79.675 ; Type 1 diabetes mellitus with diabetic polyneuropathy E10.42 ; Plantar fascial fibromatosis M72.2 ; Dermatitis L30.9 and Ataxic gait R26.[address] [address] 03/10/2024 Saravanan Holloway Tinea unguium B35.1 ; Pain in right toe(s) M79.674 ; Pain in left toe(s) M79.675 ; Type 1 diabetes mellitus with diabetic polyneuropathy E10.42 ; Plantar fascial fibromatosis M72.2 ; Dermatitis L30.9 and Ataxic gait R26.[address] [address] 06/11/2024 Saravanan Holloway Tinea unguium B35.1 ; [...] in right toe(s) (ICD-10 - M79.674) 03/10/2024 Tinea unguium (ICD-10 - B35.1) 03/10/2024 Pain in right toe(s) (ICD-10 - M79.674) 06/11/2024 Tinea unguium (ICD-10 - B35.1) 06/11/2024 Pain in right toe(s) (ICD-10 - M79.674) 03/10/2024 Pain in left toe(s) (ICD-10 - M79.675) 12/10/2023 Pain in left toe(s) (ICD-10 - M79.675) 12/10/2023 Type 1 diabetes mellitus with diabetic polyneuropathy (ICD-10 - E10.42) 03/10/2024 Type 1 diabetes mellitus with diabetic polyneuropathy (ICD-10 - E10.42) 06/11/2024 Pain in left toe(s) (ICD-10 - M79.675) 06/11/2024 Type 1 diabetes mellitus with diabetic polyneuropathy (ICD-10 - E10.42) 03/10/2024 Plantar fascial fibromatosis (ICD-10 - M72.2) 12/10/2023 Plantar fascial fibromatosis (ICD-10 - M72.2) 12/10/2023 Dermatitis (ICD-10 - L30.9) 03/10/2024 Dermatitis (ICD-10 - L30.9) 06/11/2024 Plantar fascial fibromatosis (ICD-10 - M72.2) 06/11/2024 Dermatitis (ICD-10 - L30.9) 03/10/2024 Ataxic gait (ICD-10 - R26.0) 12/10/2023 Ataxic gait (ICD-10 - R26.0) 06/11/2024 Ataxic gait (ICD-10 - R26.0) Plan Of Treatment Pending Test Test Name Order Date 05341-TQIFGHN NAIL, 6 OR MORE 06/17/2015 13823-KMZYGBN NAIL, -09/20/2015 71984-NPYQSPW NAIL, -11/30/2014 58271-CZCVWRR NAIL, -03/17/2015 71215-EXVBHLN NAIL, -12/25/2013 70899-ZEDABKL NAIL, -03/12/2014 56139-CBTGAEG NAIL, -06/01/2014 61516-EDZAJVP NAIL, -08/31/2014 01416-RBMEVQU NAIL, -12/20/2015 66691-CUPXATX NAIL, -03/22/2016 74154-OYMVBJN NAIL, 1-5 06/14/2016 01458-OTGM SKIN LESIONS, OVER 4 06/14/20 16 79984-IILQ SKIN LESIONS, OVER 4 04/16/20 19 84654-ZVHI SKIN LESIONS, OVER 4 03/22/20 16 67600-AZXB SKIN LESIONS, OVER 4 12/20/19 16 91647-KMGO SKIN LESIONS, OVER 4 07/30/20 19 88173-WYPU SKIN LESIONS, OVER 4 11/10/19 20 95425-QZPK SKIN LESIONS, OVER 4 02/16/20 20 68534-UHNX SKIN LESIONS, OVER 4 05/26/20 20 60846-URIJ SKIN LESIONS, OVER 4 08/31/20 14 40484-AEWJ SKIN LESIONS, OVER 4 06/01/20 14 18444-KQEL SKIN LESIONS, OVER 4 03/12/20 14 54018-PJYG SKIN LESIONS, OVER 4 12/26/19 14 05711-SUHZ SKIN LESIONS, OVER 4 03/17/20 15 99355-LJEM SKIN LESIONS, OVER 4 12/01/19 15 00232-HAHP SKIN LESIONS, OVER 4 06/17/20 15 94322-NZJF SKIN LESIONS, OVER 4 09/20/19 16 74390-FYDE SKIN LESIONS, OVER 4 08/25/20 20 26776-THFU SKIN LESIONS, OVER 4 11/25/19 21 04256-IPCO SKIN LESIONS, OVER 4 02/29/20 21 28544-ZVHE SKIN LESIONS, OVER 4 06/01/20 21 80001-UGRB SKIN LESIONS, OVER 4 08/18/20 21 34560-CAEO SKIN LESIONS, OVER 4 11/25/19 22 96966-UOLN NAIL(S) 09/20/2015 47036-REKR NAIL(S) 11/30/2014 81657-ZSCC NAIL(S) 03/17/2015 77833-EUTJ NAIL(S) 12/25/2013 33939-AMGL NAIL(S) 03/12/2014 43357-FMWL NAIL(S) 06/01/2014 30719-ANYV NAIL(S) 08/31/2014 25972-DQXF NAIL(S) 12/20/2015 77669-FVOD NAIL(S) 03/22/2016 67736-JRLD NAIL(S) 06/14/2016 E0456-FBHBCXQW DYSTROPHIC NAILS ANY # M5376-XMUAZONY DYSTROPHIC NAILS ANY # K0099-VTLOEBCE DYSTROPHIC NAILS ANY # O4683-NJRWXJCZ DYSTROPHIC NAILS ANY # A8157-RDYLDUKI DYSTROPHIC NAILS ANY # D1301-KJAPCAWW DYSTROPHIC NAILS ANY # K7166-HCEKMCZJ DYSTROPHIC NAILS ANY # S2498-UNGYPUJH DYSTROPHIC NAILS ANY # V3276-AQBBAPFC DYSTROPHIC NAILS ANY # H6902-MKXSNVWU DYSTROPHIC NAILS ANY # Y6807-XUVWXCIO DYSTROPHIC NAILS ANY # Next Appt Details Provider Name:Rosa Elena vega, 09/22/2024 11:00:00 AM, [address] [facility], [place], [address], Insurance Providers Payer Name Payer Address Payer Phone Subscriber Number Group Number Insured Name Patient Relationship to Insured Coverage Start Date Coverage End Date Medicare National Govt S[employer] [address] [facility] [place] [address] [id number] Shannan Dickson Self - patient is the insured [employer] [address] [place] [address] [id number] Shannan iDckson Self - patient is the insured 4 Medical (General) History Medical History History ICD Code Anxiety Arthritis Broken bones Cancer type II diabetes Osteoporosis Measles Mumps Chicken pox Surgical History Surgery Date(Month/Year) hystercetomy 2000 elbow sx 2004 lumpectomy 2000 Right Hand surgery 10/02/19 Hospitalization History Reason Date(Month/Year) Patient went to [facility] ER for allergic reac tion to PCN. 03/04/2014
[2024-08-28 12:42] LABS: Vitamin B12 235 pg/mL (200-900)
[2024-08-29 11:48] LABS: Lyme Abs Screen <0.90 index
== END 2024-08-28 11:11 | disposition home or self-care (01) ==
LOC: HO.LAB 11:10
PROVIDERS: PCP Internal Medicine; Visit Provider Psychiatry & Neurology Neurology
DX: G93.40 Encephalopathy, unspecified (principal)
CPT/HCPCS: 36415; 82607; 86617; 86618

== ENCOUNTER 2024-09-05 07:23 | Outpatient (REF) | payer MEDICARE, SELFPAY ==
--- OUTSIDE RECORDS SUMMARY | 2024-09-05 07:26 | XMS_ITS ---
Author Organization [facility] Address [address] [facility] [place] [address] Care Team Providers Care Support Staff Name Role Phone Chandan Younger MD Primary Care Provider Unavail able Rosa Elena Mulligan Unavailable [phone] Saravanan Holloway Unavailable [phone] Allergies Allergen (clinical drug ingredient) Drug/Non Drug Allergy documented on EMR Reaction Allergy Type Onset Date Status Penicillin anaphylaxis Drug Allergy Acti ve REASON FOR VISIT [facility]23 Medications Medication SIG (Take, [...] W/U Status Risk Notes Problem Ataxic gait (69413060) Ataxic gait (R26.0) Active confirmed Vital Signs Height 5 ft 7 in in 12/10/2023 Weight 161 lbs 12/10/2023 BMI 25.21 kg/m2 12/10/2023 Blood pressure systolic 120 mm Hg 12/10/19 24 Blood pressure diastolic 80 mm Hg 024 Encounters Encounter Location Date Provider Diagnosis [facility] [address] [address] 12/10/2023 Saravanan Holloway Tinea unguium B35.1 ; [...] Name:Rosa Elena Saskiakenny vega, 09/22/2024 11:00:00 AM, [address] [place] [address], [address], Procedure Notes * Category Sub-Category Detail Notes Keratoma Treatment Parring or Cutting o f Benign Hyperkeratotic Lesion(s) 99731 ( >4 Lesions) - The Benign hyperkeratotic [...] Notes * Shannan DICKSONDOB:1945 (78 yo F)Acc No.[id number]:12/10/2023 Progress Note Patient:?Shannan Dickson Provider:?Saravanan Holloway DPM :1945???Age:78 Y???Sex:Female D ate:12/10/2023 Address:[address] [place] [address] [address] [facility] Pcp:Chandan Younger MD Subjective: * Chief Complaints: [...] * Hospitalization/Major Diagno stic Procedure:?Patient went to [facility] ER for allergic [...] yes, walking. ?Marital status: . 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 * Medications:?TakingExtra Dep th Diabetic Shoes [...] Procedures:?Keratoma Treatment:?Parring or Cutting of Benign Hyperkeratotic Lesion(s)?09160 ( >4 Lesions) - The Benign hyperkeratotic lesions, as described above were pared, and/or cut utilizing a sterile #15 blade, tissue nippers, and/or dremel.?Nail Reduction:?Nail Reduction?Trimming of dystrophic nails performed to reduce/remove overall nail length and girth, by manual and electrical means with use of a nail nipper and/or dremel, to more viable healthy nail plate or bed tissue 6-10 (G0127).? * Procedure Codes:?27886 TRIM SKIN LESIONS, OVER 4, Modifiers: XS [...] Interfil injection therapy, as well as surgical Arnold/Endoscopic Fasciitomy surgical procedures if needed. Recommendations were [...] Date:? 024 Generated for Lillie laureano/Kenney/eTana maríaitting on:?09/05/2024 07:26 AM EST History and Physical Notes * [...]
--- OUTSIDE RECORDS SUMMARY | 2024-09-05 07:26 | XMS_ITS ---
Author Organization [facility] Address [address] [facility] [place] [address] Care Team Providers Care Supervisor Felting Name Role Phone Chandan Younger MD Primary Care Provider Unavail able Rosa Elena Mulligan Unavailable [phone] Saravanan Holloway Unavailable [phone] Allergies Allergen (clinical drug ingredient) Drug/Non Drug [...] an other tobacco user? No Vital Signs Height 5 ft 7 in in 06/11/2024 Weight 152 lbs 06/11/2024 BMI 23.8 kg/m2 06/11/2024 Blood pressure systolic 100 mm Hg 06/11/20 24 Blood pressure diastolic 60 mm Hg 024 Encounters Encounter Location Date Provider Diagnosis [facility] [address] [address] 06/11/2024 Saravanan Holloway Tinea unguium B35.1 ; [...] Name:Rosa Elena Saskiakenny vega, 09/22/2024 11:00:00 AM, [address] [place] [address], [address], Procedure Notes * Category Sub-Category Detail Notes Keratoma Treatment Parring or Cutting o f Benign Hyperkeratotic Lesion(s) 82807 ( >4 Lesions) - The Benign hyperkeratotic [...] Notes * Shannan DICKSONDOB:1945 (79 yo F)Acc No.[id number]:06/11/2024 Progress Note Patient:?Shannan Dickson Provider:?Saravanan Holloway DPM :1945???Age:79 Y???Sex:Female D ate:06/11/2024 Address:[address] [place], [place] [phone] Pcp:Chandan Younger MD Subjective: * Chief Complaints: [...] * Hospitalization/Major Diagno stic Procedure:?Patient went to [facility] ER for allergic reaction to PCN. 03/04/2014 [...] yes, walking. ?Marital status: . 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 * Medications:?TakingExtra Dep th Diabetic Shoes [...] Procedures:?Keratoma Treatment:?Parring or Cutting of Benign Hyperkeratotic Lesion(s)?26986 ( >4 Lesions) - The Benign hyperkeratotic lesions, as described above were pared, and/or cut utilizing a sterile #15 blade, tissue nippers, and/or dremel.?Nail Reduction:?Nail Reduction?Trimming of dystrophic nails performed to reduce/remove overall nail length and girth, by manual and electrical means with use of a nail nipper and/or dremel, to more viable healthy nail plate or bed tissue 6-10 (G0127).? * Procedure Codes:?87180 TRIM SKIN LESIONS, OVER 4, Modifiers: XS G0127 TRIMMING DYSTROPHIC NAILS ANY #, Modifiers: XS * Follow Up:?3 Months * Images: * Sign off status: Completed true * Provider:Yamilet Holloway DPM Date:? 024 Generated for Greeri sridevi/Kenney/eTransmitting on:?09/05/2024 07:26 AM EST History and Physical Notes * HPI (History of Present Illness) Category Sub-Category Detail Notes Category Not es At Risk footcare Pt States Last PCP Visit: Date: Foot Pain Nature: aching Location: Bottom, Midfoot, [place] rfoot, LEFT Duration: several months Onset: unknown [...]
--- OUTSIDE RECORDS SUMMARY | 2024-09-05 07:26 | XMS_ITS ---
Author Organization [facility] Address [address] [place] [address] Care Team Providers Care Umbrella Tipper Machine Name Role Phone Chandan Younger MD Primary Care Provider Unavail able Rosa Elena Mulligan Unavailable [phone] Saravanan Holloway Unavailable [phone] Allergies Allergen (clinical drug ingredient) Drug/Non Drug Allergy documented on EMR Reaction Allergy Type Onset Date Status Penicillin anaphylaxis Drug Allergy Acti ve REASON FOR VISIT [facility] - 01/2023 Medications [...] Not -Taking Multivitamins Orally Not-Ta Vital Signs Height 5 ft 7 in in 03/10/2024 Weight 161 lbs 03/10/2024 BMI 25.21 kg/m2 03/10/2024 Blood pressure systolic 120 mm Hg 03/10/20 24 Blood pressure diastolic 80 mm Hg 024 Encounters Encounter Location Date Provider Diagnosis [facility] [place] [address] [place] [address] 03/10/2024 Saravanan Holloway Tinea unguium B35.1 ; [...] Name:Rosa Elena vega, 09/22/2024 11:00:00 AM, [address] [place], [address], Procedure Notes * Category Sub-Category Detail Notes Keratoma Treatment Parring or Cutting o f Benign Hyperkeratotic Lesion(s) 99915 ( >4 Lesions) - The Benign hyperkeratotic [...] Notes * Shannan DICKSONDOB:1945 (79 yo F)Acc No.[id number]:03/10/2024 Progress Note Patient:?Sahnnan Dickson Provider:?Saravanan Holloway DPM :1945???Age:79 Y???Sex:Female D ate:03/10/2024 Address:[address] [place], [place] [phone] Pcp:Chandan Younger MD Subjective: * Chief Complaints: [...] * Hospitalization/Major Diagno stic Procedure:?Patient went to [facility] ER for allergic [...] Procedures:?Keratoma Treatment:?Parring or Cutting of Benign Hyperkeratotic Lesion(s)?34048 ( >4 Lesions) - The Benign hyperkeratotic lesions, as described above were pared, and/or cut utilizing a sterile #15 blade, tissue nippers, and/or dremel.?Nail Reduction:?Nail Reduction?Trimming of dystrophic nails performed to reduce/remove overall nail length and girth, by manual and electrical means with use of a nail nipper and/or dremel, to more viable healthy nail plate or bed tissue 6-10 (G0127).? * Procedure Codes:?46652 TRIM SKIN LESIONS, OVER 4, Modifiers: XS G0127 TRIMMING DYSTROPHIC NAILS ANY #, Modifiers: XS * Follow Up:?3 Months * Images: * Sign off status: Completed true * Provider:?Saravanan Holloway DPM Date:? 024 Generated for Printi ng/Faxing/eTransmitting on:?09/05/2024 07:26 AM EST History and Physical Notes * HPI (History of Present Illness) Category Sub-Category Detail Notes Category Not es At Risk footcare Pt States Last PCP Visit: Date: 4 Foot Pain Nature: aching Location: Bottom, Midfoot, [place] rfoot, LEFT Duration: several months Onset: unknown [...]
--- OUTSIDE RECORDS SUMMARY | 2024-09-05 07:26 | XMS_ITS | Patient Health Record ---
Author Organization Chandan Younger DO, FACP Address [address] [place], [place] [phone] Care Team Providers Care Substance Abuse Rn Name Role Phone Chandan Younger Primary Care [...] M edicine Referred Provider AT Physical Therapy [facility] Referred Provider Specialty Physical The rapist General [...] Problem Vitamin D deficiency (E55.9) Active confirmed 64055705 Problem Generalized anxiety disorder (F41.1) Active confirmed 67977207 Problem Essential hypertensi on (I10) Active confirmed 11375523 Problem Type 2 diabetes mellitus without complication (E11.9) Active confirmed 96304809 Problem Frequent falls (R29.6) Active confirmed 019229640 Problem Dysthymia (F34.1) Active confirmed 7866 7006 Problem History of breast cancer (Z85.3) Active confirmed 355105377 Problem Gastroesophageal ref lux disease, esophagitis presence not specified (K21.9) Active confirmed 170738224 Problem Memory loss (R41.3) Active confirmed 48 136552 Problem Hypercholesterolemia (E78.00) Active confirmed 41138291 Problem 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) Active confirmed 377715 001 Problem Ground glass opacity present on imaging of lung (R91.8) Active confirmed 166246119 Problem Dupuytrens contractu re (M72.0) Active confirmed 649084359 VITAL SIGNS Blood pressure diastolic 74 mm Hg 06/17/2024 Height 65.5 in 06/17/2024 Blood pressure systolic 122 mm Hg 06/17/2024 Weight 154 lbs 06/17/2024 BMI 25.23 kg/m2 06/17/2024 Encounters Encounter Location Date Provider Diagnosis Chandan Younger DO [address] [phone] 12/18/2023 Chandan Younger Frequent falls R29.6 ; Type 2 diabetes mellitus without complication E11.9 ; Essential hypertension I10 ; Hypercholesterolemia E78.00 ; Gastroesophageal reflux disease, esophagitis presence not specified K21.9 ; Generalized anxiety disorder F41.1 and Vitamin D deficiency E55.9 Chandan Younger DO [facility] [address] [place], [place] [phone] 06/17/2024 Chandan Younger Type 2 diabetes pili itus without complication E11.9 ; Essential hypertension I10 ; Hypercholesterolemia E78.00 ; Gastroesophageal reflux disease, esophagitis presence not specified K21.9 ; Generalized anxiety disorder F41.1 ; Vitamin D deficiency E55.9 and Memory loss R41.3 Chandan Younger DO, [facility] [address] [place], [place] [phone] 09/12/2023 Chandan Younger Gastroesophageal ref lux disease, esophagitis presence not specified K21.9 Chandan Younger DO, [facility] [address] [place], [place] [phone] 10/26/2023 Chandan Younger DO, [address] [phone] 11/14/2023 Chandan Younger Cardiac related sync ope R55 Chandan Younger DO, [address] [phone] 11/19/2023 Chandan Garvinman Chandan Younger DO, [address] [phone] 10/31/2023 Chandan Younger Frequent falls R29.6 ; [...] Date MEDICARE [address] [place] [phone] [id number] Shannan Dickosn Self - patient is the insured [employer] [address] [place] [address] [id number] Shannan Dickson Self - patient is the [...]
--- OUTSIDE RECORDS SUMMARY | 2024-09-05 07:26 | XMS_ITS | Patient Health Record ---
Author Organization [facility] Address [address] [place] [address] Care Team Providers Care Veterinary Bacteriologist Name Role Phone Chandan Younger MD Primary Care Provider Unavail able Rosa Elena Mulligan Unavailable [phone] Saravanan Holloway Unavailable [phone] Allergies Allergen (clinical drug ingredient) Drug/Non Drug [...] Active Lisinopril Not-Takin g Multivitamins Orally Not-Ta mina Omeprazole 20 MG 1 capsule Orally Onc [...] Polyneuropathy due to diabetes mellitus type I (944092273) Type 1 diabetes mellitus with diabetic polyneuropathy (E10.42) Active confirmed Problem Ataxic gait (65881538) Ataxic gait (R26.0) Active confirmed Problem Polyneuropathy due to type 2 diabetes mellitus (389820646) Type 2 diabetes mellitus with diabetic polyneuropathy (E11.42) Active confirmed Problem Polyneuropathy due to diabetes mellitus type I (977896118) Type 1 diabetes mellitus with diabetic polyneuropathy (E10.42) Active confirmed Vital Signs Blood pressure diastolic 60 mm Hg 06/11/2024 Height 5 ft 7 in in 06/11/2024 Blood pressure systolic 100 mm Hg 06/11/2024 Weight 152 lbs 06/11/2024 BMI 23.8 kg/m2 06/11/2024 Encounters Encounter Location Date Provider Diagnosis [address] [address] 12/10/2023 Saravanan Holloway Tinea unguium B35.1 ; Pain in right toe(s) M79.674 ; Pain in left toe(s) M79.675 ; Type 1 diabetes mellitus with diabetic polyneuropathy E10.42 ; Plantar fascial fibromatosis M72.2 ; Dermatitis L30.9 and Ataxic gait R26.[address] [address] 03/10/2024 Saravanan Holloway Tinea unguium B35.1 ; Pain in right toe(s) M79.674 ; Pain in left toe(s) M79.675 ; Type 1 diabetes mellitus with diabetic polyneuropathy E10.42 ; Plantar fascial fibromatosis M72.2 ; Dermatitis L30.9 and Ataxic gait R26.[address] [address] 06/11/2024 Saravanan Holloway Tinea unguium B35.1 ; [...] Treatment Pending Test Test Name Order Date 66953-WSLXIZA NAIL, 6 OR MORE 06/17/2015 60126-ZCBSKHQ NAIL, -09/20/2015 61931-GQGQBTF NAIL, -11/30/2014 48944-UONAHIS NAIL, -03/17/2015 34726-RHXRDEF NAIL, -12/25/2013 53541-RISUUYM NAIL, -03/12/2014 55195-FZVJTTI NAIL, -06/01/2014 16514-PLFBOKG NAIL, -08/31/2014 29763-ULYSYTT NAIL, -12/20/2015 21939-HGHLQNN NAIL, -03/22/2016 92364-XPTUUUW NAIL, 1-5 06/14/2016 35688-XDNH SKIN LESIONS, OVER 4 06/14/20 16 75125-OTEW SKIN LESIONS, OVER 4 04/16/20 19 29507-OOPM SKIN LESIONS, OVER 4 03/22/20 16 91813-CNRB SKIN LESIONS, OVER 4 12/20/19 16 40501-IWYG SKIN LESIONS, OVER 4 07/30/20 19 00023-ILQB SKIN LESIONS, OVER 4 11/10/19 20 36656-MKCA SKIN LESIONS, OVER 4 02/16/20 20 90175-RQUZ SKIN LESIONS, OVER 4 05/26/20 20 64149-IRYU SKIN LESIONS, OVER 4 08/31/20 14 07383-GJUY SKIN LESIONS, OVER 4 06/01/20 14 51485-JFIG SKIN LESIONS, OVER 4 03/12/20 14 35826-THXY SKIN LESIONS, OVER 4 12/26/19 14 87801-HZCE SKIN LESIONS, OVER 4 03/17/20 15 72648-XZEK SKIN LESIONS, OVER 4 12/01/19 15 97802-JBNH SKIN LESIONS, OVER 4 06/17/20 15 02396-ELZH SKIN LESIONS, OVER 4 09/20/19 16 66197-GVSG SKIN LESIONS, OVER 4 08/25/20 20 18278-PAST SKIN LESIONS, OVER 4 11/25/19 21 84824-WHBQ SKIN LESIONS, OVER 4 02/29/20 21 54075-HIOG SKIN LESIONS, OVER 4 06/01/20 21 42824-RLPP SKIN LESIONS, OVER 4 08/18/20 21 31351-LXQZ SKIN LESIONS, OVER 4 11/25/19 22 22310-SUZX NAIL(S) 09/20/2015 35752-IJJJ NAIL(S) 11/30/2014 01559-REIK NAIL(S) 03/17/2015 53087-KGJV NAIL(S) 12/25/2013 38723-PBRK NAIL(S) 03/12/2014 50971-FXTS NAIL(S) 06/01/2014 36795-XCRE NAIL(S) 08/31/2014 38041-RQIG NAIL(S) 12/20/2015 08532-ULHJ NAIL(S) 03/22/2016 75946-RZIN NAIL(S) 06/14/2016 K0709-OLESZNFW DYSTROPHIC NAILS ANY # W1897-ZFKGNXMV DYSTROPHIC NAILS ANY # W5205-FTXXGPYH DYSTROPHIC NAILS ANY # V2534-NDLJMYVB DYSTROPHIC NAILS ANY # H3851-JYLSWTJN DYSTROPHIC NAILS ANY # X1739-DIIKRQKB DYSTROPHIC NAILS ANY # V9307-DJHLDMTJ DYSTROPHIC NAILS ANY # S1843-WRRQDXYY DYSTROPHIC NAILS ANY # Q5287-PBPYFOPA DYSTROPHIC NAILS ANY # V4910-DKSIVPYX DYSTROPHIC NAILS ANY # C0535-IUJQYKNG DYSTROPHIC NAILS ANY # Next Appt Details Provider Name:Rosa Elena vega, 09/22/2024 11:00:00 AM, [address] [facility], [place], [address], Insurance Providers Payer Name Payer Address Payer Phone Subscriber Number Group Number Insured Name Patient Relationship to Insured Coverage Start Date Coverage End Date Medicare National Govt Sv[employer] [address] [place] [address] [id number] Shannan Dickson Self - patient is the insured [employer] [address] [place] [address] [id number] Shannan Dickson Self - patient is the insured 4 Medical (General) History Medical History History ICD Code Anxiety Arthritis Broken bones Cancer type II diabetes Osteoporosis Measles Mumps Chicken pox Surgical History Surgery Date(Month/Year) hystercetomy 2000 elbow sx 2004 lumpectomy 2000 Right Hand surgery 10/02/19 Hospitalization History Reason Date(Month/Year) Patient went to [facility] ER for allergic reac tion to PCN. 03/04/2014
--- OUTSIDE RECORDS SUMMARY | 2024-09-05 07:26 | XMS_ITS | Data Portability ---
Author Organization [place] [facility] Address [address] [place] [address] Care Team Providers Care Tenter Frame Operator Name Role Phone RUTHIE ZAMAN Primary Care Provider [phone] Assessment Encounter Date Assessment Date Assessment LastModified by Organization Details LastModified Time 05/15/2024 05/15/2024 79 year old female presents for cerumen removal. Cerumen impaction removed bilaterally. Bilateral TMs are intact. Follow up in 6 months for routine ear cleaning. [email or web address] Not available 05/15/2024 11:23:16 Plan of Treatment [...] Organization Details Recorded Time Candidal otitis externa 80610520 Active 2019 Candidal otitis externa; Note: Date Diagnosed : 03/26/2020 10:18 AM (B37.84) Not Available [facility] 4 03:17:44 Impacted cerumen of bilateral ears 76016297541 12451 Active 2019 Impacted cerumen, bilateral ; Note: Date Diagnosed : 09/16/2019 3:17 PM (H61.23) Not Available [facility] 4 03:17:45 Sensorine ural hearing loss of bilateral ears 056428662 Active 2019 Sensorine ural hearing loss, bilateral ; Note: Date Diagnosed : 09/16/2019 3:17 PM (H90.3) Not Available [facility] 4 03:17:45 Problem Notes None recorded. Procedures Surgical History Date Name Laterality Status Provider Name and Address Organization Details Recorded Time 4 Cerumen removal without microscope bilat completed DAWN LEHMAN PA-C [address] [place] [address], [address], [facility] - [facility] 05/15/2024 11:22:21 Imaging Results Imaging Date Name [...] Name and Address Organization Details Recorded Time 171499 penicilli n V potassium medicatio n other Not available Not available 01/22/202469422 5 RxNorm React ion: unkno wn, unspe cifie d;; Not Available [facility] 4 01:25:20 Medications Name Sig Start Date [...] mg tablet 11/22 completed Medicati on ID: [id number] D uration Value: 90 Brand Name: atorvast atin Sen d Method: E-Prescr ibed Sub s Allowed: subs OK Speci al Instruct ion: TAKE 1 TABLET BY MOUTH EVERY DAY Medi cationGe nericNam e: atorvast atin Not Available Not Available Not Available clotrimaz ole 1 % topical solution 2019 active Medicati on ID: 615837 D uration Value: 28 Prescri bed By [...] mg capsule 11/22 completed Medicati on ID: [id number] D uration Value: 90 Brand Name: fluoxeti ne Send Method: E-Prescr ibed Sub s Allowed: subs OK Medic Kit ericName : fluoxeti ne Not Available Not Available Not Available metformin ER 500 mg tablet,ex tended release 24 hr 11/22 completed Medicati on ID: [id number] D uration Value: 90 Brand Name: metformi n Send Method: E-Prescr ibed Sub s Allowed: subs MEKA Diaz al Instruct ion: TAKE 3 TABLETS BY MOUTH DAILY Me dication GenericN yvette: metformi n Not Available Not Available Not Available multivita min 11/22 completed Medicati on ID: 076593 B rand Name: multivit diaz Sen d Method: E-Prescr ibed Sub s Allowed: subs OK Medic ationGen ericName : multivit diaz Not Available Not Available Not Available Vitamin D3 50 mcg (2,000 unit) tablet 11/22 completed Medicati on ID: 599283 B rand Name: Vitamin D3 Send Method: E-Prescr ibed Sub s Allowed: subs OK Medic ationGen ericName : Vitamin D3 Not Available Not Available Not Available Zyrtec 10 mg capsule Take 1 capsule by mouth once a day as needed 11/22 completed Medicati on ID: 533741 D uration Value: 1 Brand Name: Zyrtec S end Method: E-Prescr ibed Sub s Allowed: subs OK Medic ationGen ericName : Zyrtec Not Available Not Available Not Available Basaglar KwikPen U-100 Insulin 100 unit/mL (3 mL) subcutane ous 11/22 completed Medicati on ID: 275205 D uration Value: 90 Brand Name: Basaglar [...] mg capsule 11/22 completed Medicati on ID: [id number] B rand Name: Aspir-81 Send Method: E-Prescr ibed Sub s Allowed: subs OK Medic ationGen ericName : Aspir-81 Not Available Not Available Not Available Vitals Date Recorded Body height Body mass index (BMI) Body weight Provider Name and Address Organization Details Last Updated DateTime 05/15/2024 170.18 cm 24 kg/m2 71269.63 g Shania Avalos [place] [facility] 05/15/2024 11:22:38 Social History None recorded. Functional Status None recorded. Mental Status None recorded. Family History Nothing Reported. Medical History No medical history recorded. Gynecological HistoryNo gynecological history recorded. Obstetrics History GPAL:G 0 P 0 0 0 0 Past Encounters Encounter ID Performer Location Encounter Start Date Encounter Closed Date Diagnosis/Indication Diagnosis SNOMED-CT Code Diagnosis ICD10 Code [id number] MIRLANDE APONTE MD [facility] [address] [place] [address] 05/15/2024 11:11:41 05/15/2024 11:34:21 Impacted cerumen of bilateral ears 2820028023 865911 H61.23 Health Concerns Section Related Observation LastModified by Organization Detai ls LastModified Time None Recorded Concern Status LastModified by Organization Details LastModified Time None Recorded Advance Directives Directive None Recorded Payers Encounter Date Sequence Insurance Name Policy Number Policy Valle Covered Member ID Valle Member ID Guarantor Name 05/15/2024 1 [place] [employer] Shannan L Layzer [id number] Shannan L Layzer 05/15/2024 2 [place] [id number] Shannan L Layzer [id number] Shannan L Layzer Notes Date Note Type Note Provider Name and Address Organization Details Recorded Time 05/15/2024 text/html 79 year old female presents for cerumen removal. No concerns today. MIRLANDE APONTE MD [address] [address], [place], [address], [facility] - [facility] 05/15/2024 16:31:26 OBGyn Episode No OBEpisode recorded.
--- OUTSIDE RECORDS SUMMARY | 2024-09-05 07:26 | XMS_ITS ---
Author Organization Chandan Younger DO, FACP Address [address] [place], [place] [id number] Care Team Providers Care Director Of Undergraduate Admissions Name Role Phone Chandan Younger Primary Care Provider [phone] ALLERGIES Allergen (clinical drug ingredient) Drug/Non Drug [...] Location Date Provider Diagnosis Chandan Younger DO, [address] [id number] 12/18/2023 Chandan Younger Frequent falls R29.6 ; [...]
--- OUTSIDE RECORDS SUMMARY | 2024-09-05 07:26 | XMS_ITS ---
Author Organization Chandan Younger DO [facility] Address [address] [place], [place] [phone] Care Team Providers Care Hydrotel Operator Name Role Phone Aren Chandan Primary Care Provider REASON FOR VISIT Message SOCIAL HISTORY Sex Assigned At : Social History Observation Description Sex Assigned At Female Encounters Encounter Location Date Provider Diagnosis Chandan Younger DO, FACP [address] [place], [place] [id number] 11/19/2023 Chandan Younger PLAN OF TREATMENT No Information
== END 2024-09-05 07:24 | disposition home or self-care (01) ==
LOC: HO.MRI 07:23
PROVIDERS: PCP Internal Medicine; Visit Provider Psychiatry & Neurology Neurology
DX: G93.40 Encephalopathy, unspecified (principal)
CPT/HCPCS: 70551

== ENCOUNTER → 2024-09-05 07:30 | Outpatient (BNV) | payer MEDICARE, SELFPAY | PROVIDERS: PCP Internal Medicine; Visit Provider Radiology Diagnostic Radiology | DX: G93.40 Encephalopathy, unspecified (principal) | CPT/HCPCS: 70551 ==

== ENCOUNTER 2024-10-09 10:35 | Outpatient (REF) | payer MEDICARE, SELFPAY ==
[2024-10-09 13:02] LABS: Vitamin B12 240 pg/mL (200-900)
--- OUTSIDE RECORDS SUMMARY | 2024-10-09 14:12 | XMS_ITS ---
Author Organization [facility] Address [address] [facility] [place] [address] Care Team Providers Care Piece Work Checker Name Role Phone Chandan Younger MD Primary Care Provider Unavail able Rosa Elena Mulligan Unavailable [phone] Saravanan Holloway Unavailable [phone] Allergies Allergen (clinical drug ingredient) Drug/Non Drug [...] 024 Encounters Encounter Location Date Provider Diagnosis [facility] [address] [address] 06/11/2024 Saravanan Holloway Tinea unguium B35.1 ; [...] Details Follow Up: 3 Months, Reason: Provider Name:Marleny Sotelo , 11/10/2024 10:15:00 AM, [address] [place], [address], Procedure Notes * Category Sub-Category Detail Notes Keratoma Treatment Parring or Cutting o f Benign Hyperkeratotic Lesion(s) 05596 ( >4 Lesions) - The Benign hyperkeratotic [...] Notes * Shannan DICKSONDOB:1945 (79 yo F)Acc No.[id number]:06/11/2024 Progress Note Patient:?Shannan Dickson Provider:?Saravanan Holloway DPM :1945???Age:79 Y???Sex:Female D ate:06/11/2024 Address:[address] [place], [place] [id number] Pcp:Chandan Younger MD Subjective: * Chief Complaints: [...] * Hospitalization/Major Diagno stic Procedure:?Patient went to [facility] ER for allergic reaction to PCN. 03/04/2014 [...] yes, walking. ?Marital status: . 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 * Medications:?TakingExtra Dep th Diabetic Shoes [...] Procedures:?Keratoma Treatment:?Parring or Cutting of Benign Hyperkeratotic Lesion(s)?00993 ( >4 Lesions) - The Benign hyperkeratotic lesions, as described above were pared, and/or cut utilizing a sterile #15 blade, tissue nippers, and/or dremel.?Nail Reduction:?Nail Reduction?Trimming of dystrophic nails performed to reduce/remove overall nail length and girth, by manual and electrical means with use of a nail nipper and/or dremel, to more viable healthy nail plate or bed tissue 6-10 (G0127).? * Procedure Codes:?51266 TRIM SKIN LESIONS, OVER 4, Modifiers: XS G0127 TRIMMING DYSTROPHIC NAILS ANY #, Modifiers: XS * Follow Up:?3 Months * Images: * Sign off status: Completed true * Provider:Yamilet Holloway DPM Date:? 024 Generated for Greeri sridevi/Kenney/eTransmitting on:?10/09/2024 02:12 PM EST History and Physical Notes * HPI [...]
--- OUTSIDE RECORDS SUMMARY | 2024-10-09 14:12 | XMS_ITS ---
Author Organization Chandan Younger DO, FACP Address [address] [place], [place] [phone] Care Team Providers Care Insole Coverer Name Role Phone Aren Chandan Primary Care Provider [phone] REASON FOR VISIT 3 month f/u SOCIAL HISTORY Sex Assigned At : Social History Observation Description Sex Assigned At Female Encounters Encounter Location Date Provider Diagnosis Chandan Younger DO, FACP [address] [place], [place] [phone] 09/16/2024 Chandan Younger PLAN OF TREATMENT No Information
--- OUTSIDE RECORDS SUMMARY | 2024-10-09 14:13 | XMS_ITS ---
Author Organization Chandan Younger DO, FACP Address [address] [place], [place] [phone] Care Team Providers Care Stock Driver Name Role Phone Chandan Younger Primary Care [...] Location Date Provider Diagnosis Chandan Younger DO, [address] [id number] 12/18/2023 Chandan Younger Frequent falls R29.6 ; [...]
--- OUTSIDE RECORDS SUMMARY | 2024-10-09 14:13 | XMS_ITS | Data Portability ---
Author Organization [place] [facility] Address [address] [place] [address] Care Team Providers Care Training And Development Rep Name Role Phone RUTHIE ZAMAN Primary Care Provider [phone] Assessment Encounter Date Assessment Date Assessment LastModified by Organization Details LastModified Time 05/15/2024 05/15/2024 79 year old female presents for cerumen removal. Cerumen impaction removed bilaterally. Bilateral TMs are intact. Follow up in 6 months for routine ear cleaning. [email or web address] Not available 05/15/2024 11:23:16 Plan of Treatment [...] Organization Details Recorded Time Candidal otitis externa 56595188 Active 2019 Candidal otitis externa; Note: Date Diagnosed : 03/26/2020 10:18 AM (B37.84) Not Available [facility] 4 03:17:44 Impacted cerumen of bilateral ears 85662073608 15304 Active 2019 Impacted cerumen, bilateral ; Note: Date Diagnosed : 09/16/2019 3:17 PM (H61.23) Not Available [facility] 4 03:17:45 Sensorine ural hearing loss of bilateral ears 427303253 Active 2019 Sensorine ural hearing loss, bilateral ; Note: Date Diagnosed : 09/16/2019 3:17 PM (H90.3) Not Available [facility] 4 03:17:45 Problem Notes None recorded. Procedures Surgical History Date Name Laterality Status Provider Name and Address Organization Details Recorded Time 4 Cerumen removal without microscope bilat completed DAWN LEHMAN PA-C [address] [place] [address], [address], [facility] - [facility] 05/15/2024 11:22:21 Imaging Results Imaging Date [...] Name and Address Organization Details Recorded Time 753586 penicilli n V potassium medicatio n other Not available Not available 01/22/202424729 5 RxNorm React ion: unkno wn, unspe cifie d;; Not Available [facility] 4 01:25:20 Medications Name Sig Start Date [...] mg tablet 11/22 completed Medicati on ID: [id number] D uration Value: 90 Brand Name: atorvast atin Sen d Method: E-Prescr ibed Sub s Allowed: subs OK Speci al Instruct ion: TAKE 1 TABLET BY MOUTH EVERY DAY Medi cationGe nericNam e: atorvast atin Not Available Not Available Not Available clotrimaz ole 1 % topical solution 2019 active Medicati on ID: 512657 D uration Value: 28 Prescri bed By [...] mg capsule 11/22 completed Medicati on ID: [id number] D uration Value: 90 Brand Name: fluoxeti ne Send Method: E-Prescr ibed Sub s Allowed: subs OK Medic Kit ericName : fluoxeti ne Not Available Not Available Not Available metformin ER 500 mg tablet,ex tended release 24 hr 11/22 completed Medicati on ID: [id number] D uration Value: 90 Brand Name: metformi n Send Method: E-Prescr ibed Sub s Allowed: subs MEKA Diaz al Instruct ion: TAKE 3 TABLETS BY MOUTH DAILY Me dication GenericN yvette: metformi n Not Available Not Available Not Available multivita min 11/22 completed Medicati on ID: [id number] B rand Name: multivit diaz Sen d Method: E-Prescr ibed Sub s Allowed: subs OK Medic ationGen ericName : multivit diaz Not Available Not Available Not Available Vitamin D3 50 mcg (2,000 unit) tablet 11/22 completed Medicati on ID: 594154 B rand Name: Vitamin D3 Send Method: E-Prescr ibed Sub s Allowed: subs OK Medic ationGen ericName : Vitamin D3 Not Available Not Available Not Available Zyrtec 10 mg capsule Take 1 capsule by mouth once a day as needed 11/22 completed Medicati on ID: [id number] D uration Value: 1 Brand Name: Zyrtec S end Method: E-Prescr ibed Sub s Allowed: subs OK Medic ationGen ericName : Zyrtec Not Available Not Available Not Available Basaglar KwikPen U-100 Insulin 100 unit/mL (3 mL) subcutane ous 11/22 completed Medicati on ID: [id number] D uration Value: 90 Brand Name: Basaglar [...] mg capsule 11/22 completed Medicati on ID: [id number] B rand Name: Aspir-81 Send Method: E-Prescr ibed Sub s Allowed: subs OK Medic ationGen ericName : Aspir-81 Not Available Not Available Not Available Vitals Date Recorded Body height Body mass index (BMI) Body weight Provider Name and Address Organization Details Last Updated DateTime 05/15/2024 170.18 cm 24 kg/m2 69383.63 g Shania Avalos [place] [facility] 05/15/2024 11:22:38 Social History None recorded. Functional Status None recorded. Mental Status None recorded. Family History Nothing Reported. Medical History No medical history recorded. Gynecological HistoryNo gynecological history recorded. Obstetrics History GPAL:G 0 P 0 0 0 0 Past Encounters Encounter ID Performer Location Encounter Start Date Encounter Closed Date Diagnosis/Indication Diagnosis SNOMED-CT Code Diagnosis ICD10 Code Diagnosis Note [id number] MIRLANDE APONTE MD [facility] [address] [address] [place] [address] 05/15/2024 11:11:41 05/15/2024 11:34:21 Impacted cerumen of bilateral ears 9154090690 350732 H61.23 Health Concerns Section Related Observation LastModified by Organization Detai ls LastModified Time None Recorded Concern Status LastModified by Organization Details LastModified Time None Recorded Advance Directives Directive None Recorded Payers Encounter Date Sequence Insurance Name Policy Number Policy Valle Covered Member ID Valle Member ID Guarantor Name 05/15/2024 1 [place] [employer] Shannan L Layzer [id number] Shannan L Layzer 05/15/2024 2 [place] [id number] Shannan L Layzer [id number] Shannan L Layzer Notes Date Note Type Note Provider Name and Address Organization Details Recorded Time 05/15/2024 text/html 79 year old female presents for cerumen removal. No concerns today. MIRLANDE APONTE MD [address] [place] [address], [place], [address], [facility] - [facility] 05/15/2024 16:31:26 OBGyn Episode No OBEpisode recorded.
--- OUTSIDE RECORDS SUMMARY | 2024-10-09 14:13 | XMS_ITS ---
Author Organization [facility] Address [address] [place] [address] Care Team Providers Care Rug Measurer Name Role Phone Chandan Younger MD Primary Care Provider Unavail Rosa Elena Ambriz Unavailable [phone] REASON FOR VISIT rs appt 09/22/24 Encounters Encounter Location Date Provider Diagnosis [address] [address] 09/19/2024 Rosa Elena Mulligan Plan Of Treatment Next Appt Details Provider Name:Marleny Sotelo , 11/10/2024 10:15:00 AM, [address] [place] [address], [phone], Progress Notes * Shannan DICKSONDOB:1945 (79 yo F)Acc No.[id number]:09/19/2024 Patient:?Shannan DICKSON :1945???Age:79 Y???Sex:Female Address:[address] [place] [address] [place], [address] * true * Date:? Generated for Printi ng/Fafadig/eTransmitting on:?10/09/2024 02:12 PM EST
--- OUTSIDE RECORDS SUMMARY | 2024-10-09 14:14 | XMS_ITS | Patient Health Record ---
[facility] Address [address] [place] [address] Care Team Providers Care Sales Operations Name Role Phone Chandan Younger MD Primary Care Provider Unavail able Rosa Elena Mulligan Unavailable [phone] Saravanan Holloway Unavailable [phone] Allergies Allergen (clinical drug ingredient) Drug/Non Drug [...] Polyneuropathy due to diabetes mellitus type I (280790236) Type 1 diabetes mellitus with diabetic polyneuropathy (E10.42) Active confirmed Problem Ataxic gait (43695752) Ataxic gait (R26.0) Active confirmed Problem Polyneuropathy due to type 2 diabetes mellitus (638338790) Type 2 diabetes mellitus with diabetic polyneuropathy (E11.42) Active confirmed Problem Polyneuropathy due to diabetes mellitus type I (138360262) Type 1 diabetes mellitus with diabetic polyneuropathy (E10.42) Active confirmed Vital Signs Blood pressure diastolic 60 mm Hg 06/11/2024 Height 5 ft 7 in in 06/11/2024 Blood pressure systolic 100 mm Hg 06/11/2024 Weight 152 lbs 06/11/2024 BMI 23.8 kg/m2 06/11/2024 Encounters Encounter Location Date Provider Diagnosis [address] [address] 12/10/2023 Saravanan Holloway Tinea unguium B35.1 ; Pain in right toe(s) M79.674 ; Pain in left toe(s) M79.675 ; Type 1 diabetes mellitus with diabetic polyneuropathy E10.42 ; Plantar fascial fibromatosis M72.2 ; Dermatitis L30.9 and Ataxic gait R26.[address] [address] 03/10/2024 Saravanan Holloway Tinea unguium B35.1 ; Pain in right toe(s) M79.674 ; Pain in left toe(s) M79.675 ; Type 1 diabetes mellitus with diabetic polyneuropathy E10.42 ; Plantar fascial fibromatosis M72.2 ; Dermatitis L30.9 and Ataxic gait R26.[address] [address] 06/11/2024 Saravanan Holloway Tinea unguium B35.1 ; Pain in right toe(s) M79.674 ; Pain in left toe(s) M79.675 ; Type 1 diabetes mellitus with diabetic polyneuropathy E10.42 ; Plantar fascial fibromatosis M72.2 ; Dermatitis L30.9 and Ataxic gait R26.[address] [address] 09/19/2024 Rosa Elena Mulligan Assessments Encounter Date Diagnosis (ICD Code) Assessment [...] Treatment Pending Test Test Name Order Date 95412-EMNMHCL NAIL, 6 OR MORE 06/17/2015 73371-TCGKBYO NAIL, 1-5 09/20/2015 52889-EFEEBQE NAIL, 1-5 11/30/2014 38104-MOLVRIG NAIL, 1-03/17/2015 25086-QTMXTQL NAIL, 1-5 12/25/2013 77872-IZYYOTM NAIL, 1-5 03/12/2014 07100-YIZCBRA NAIL, 1-06/01/2014 70571-ZEYGOWC NAIL, 1-08/31/2014 59941-XERAGCI NAIL, 1-5 12/20/2015 63543-TEIRRVX NAIL, 1-5 03/22/2016 19506-CCJGDHY NAIL, 1-5 06/14/2016 78120-GFHA SKIN LESIONS, OVER 4 06/14/20 16 06300-SOLR SKIN LESIONS, OVER 4 04/16/20 19 57239-DJMQ SKIN LESIONS, OVER 4 03/22/20 16 28497-RSDH SKIN LESIONS, OVER 4 12/20/19 16 09498-XJKX SKIN LESIONS, OVER 4 07/30/20 19 76139-QLUK SKIN LESIONS, OVER 4 11/10/19 20 96472-OGZU SKIN LESIONS, OVER 4 02/16/20 20 79928-PBEQ SKIN LESIONS, OVER 4 05/26/20 20 95662-KWJE SKIN LESIONS, OVER 4 08/31/20 14 06211-UVMD SKIN LESIONS, OVER 4 06/01/20 14 24566-XRBK SKIN LESIONS, OVER 4 03/12/20 14 79344-PBMU SKIN LESIONS, OVER 4 12/26/19 14 09399-SIFG SKIN LESIONS, OVER 4 03/17/20 15 58008-JEDY SKIN LESIONS, OVER 4 12/01/19 15 37620-KOCP SKIN LESIONS, OVER 4 06/17/20 15 92462-OPMQ SKIN LESIONS, OVER 4 09/20/19 16 34833-WEZB SKIN LESIONS, OVER 4 08/25/20 20 64812-UKCW SKIN LESIONS, OVER 4 11/25/19 21 23839-EDOM SKIN LESIONS, OVER 4 02/29/20 21 59105-XNDQ SKIN LESIONS, OVER 4 06/01/20 21 66383-XSTS SKIN LESIONS, OVER 4 08/18/20 21 88249-LHWP SKIN LESIONS, OVER 4 11/25/19 22 67161-UMGX NAIL(S) 09/20/2015 03326-IQWK NAIL(S) 11/30/2014 38681-LMRC NAIL(S) 03/17/2015 03974-HJKO NAIL(S) 12/25/2013 11830-UEWW NAIL(S) 03/12/2014 64059-UPYA NAIL(S) 06/01/2014 82968-NYTN NAIL(S) 08/31/2014 67530-WGTM NAIL(S) 12/20/2015 73651-SGZE NAIL(S) 03/22/2016 66923-MQSW NAIL(S) 06/14/2016 T1764-XGNKGHTR DYSTROPHIC NAILS ANY # L3798-FCNXHTKO DYSTROPHIC NAILS ANY # S1911-IFZPQLBD DYSTROPHIC NAILS ANY # C3510-EPYWIDAR DYSTROPHIC NAILS ANY # S2038-TOPVIDNS DYSTROPHIC NAILS ANY # F9037-NIROKDRY DYSTROPHIC NAILS ANY # S4211-KSTVHOTF DYSTROPHIC NAILS ANY # V4210-FHXPWWLW DYSTROPHIC NAILS ANY # O7689-TMDAISKI DYSTROPHIC NAILS ANY # C2543-JKJJZVKL DYSTROPHIC NAILS ANY # R7183-LIHCHXRL DYSTROPHIC NAILS ANY # Next Appt Details Provider Name:Marleny Sotelo , 11/10/2024 10:15:00 AM, [address] [place], [address], Insurance Providers Payer Name Payer Address Payer Phone Subscriber Number Group Number Insured Name Patient Relationship to Insured Coverage Start Date Coverage End Date Medicare National [employer] [address] [place] [address] [id number] Shannan Dickson Self - patient is the insured [employer] [address] [place] [address] [id number] Shannan Dickson Self - patient is the insured 4 Medical (General) History Medical History History ICD Code Anxiety Arthritis Broken bones Cancer type II diabetes Osteoporosis Measles Mumps Chicken pox Surgical History Surgery Date(Month/Year) hystercetomy 2000 elbow sx 2004 lumpectomy 2000 Right Hand surgery 10/02/19 Hospitalization History Reason Date(Month/Year) Patient went to [facility] for allergic reac tion to PCN. 03/04/2014
--- OUTSIDE RECORDS SUMMARY | 2024-10-09 14:14 | XMS_ITS ---
Author Organization Chandan Younger DO, FACP Address [address], [place] [id number] Care Team Providers Care Corporate Accountant Name Role Phone Chandan Younger Primary Care [...] Notes Problem Memory loss (R41.3) Active confirmed [id number] VITAL SIGNS BMI 25.23 kg/m2 06/17/2024 Blood pressure systolic 122 mm Hg 06/17/20 24 Blood pressure diastolic 74 mm Hg 024 Height 65.5 in 06/17/2024 Weight 154 lbs 06/17/2024 Encounters Encounter Location Date Provider Diagnosis Chandan Younger DO, [address] [phone] 06/17/2024 Chandan Younger Type 2 diabetes pili [...] General Examination GENERAL APPEARANCE: in no ac habematolel distress, well developed, well nourished HEAD: normocephalic, [...]
--- OUTSIDE RECORDS SUMMARY | 2024-10-09 14:14 | XMS_ITS ---
Author Organization [facility] Address [address] [place] [address] Care Team Providers Care Drier Tender Naphthalene Name Role Phone Aren MG, Chandan Primary Care Provider Unavail Rosa Elena Ambriz [facility] [phone] Encounters Encounter Location Date Provider Diagnosis [address] [address] 09/22/2024 Rosa Elena Mulligan Plan Of Treatment Next Appt Details Provider Name:Marleny Sotelo , 11/10/2024 10:15:00 AM, [address] [place] [address], [phone], Progress Notes * Shannan DICKSONDOB:1945 (79 yo F)Acc No.[id number]:09/22/2024 Progress Note Patient:?Shannan DICKSON Provider:?Rosa Elena Mulligan DPM :1945???Age:79 Y???Sex:Female D ate:09/22/2024 Address:[address] [place] [address] [place] [id number] Pcp:Chandan Younger MD Subjective: * Chief Complaints: * ??? * Medical History:? Objective: * Vitals:? Assessment: Plan: * Treatment: * Images: * The named appointment provid er may or may not be the originator of this progress note, and it is not deemed complete until electronically signed by the appointment provider. Sign off status: Pending * Provider:?Rosa Elena Mulligan DPM Date:?0 09/22/2024 Generated for Lillie laureano/Kenney/Kerry on:?10/09/2024 02:13 PM EST
== END 2024-10-09 10:36 | disposition home or self-care (01) ==
LOC: HO.LAB 10:35
PROVIDERS: PCP Internal Medicine; Visit Provider Psychiatry & Neurology Neurology
DX: G31.84 Mild cognitive impairment of uncertain or unknown etiology (principal)
CPT/HCPCS: 36415; 82607

== ENCOUNTER 2024-11-03 09:59 | Outpatient (AMB) | payer MEDICARE, SELFPAY ==
--- NOTE | 2024-11-03 10:00 | MHC.PC.OV ---
Vital Signs 11/03/24 10:13 Height 5 ft 5.75 in Weight 151 lb BMI 24.6 BP 118/60 Blood Pressure Location Rt brachial Pulse 73 Pulse Source Pulse Oximeter Temp 97.0 F Pulse Oximetry (%) 97 Intake Visit Reasons: Irritation at incision site right leg Intake Note: both ankles are bothering her Allergies penicillin G Allergy (Unknown, Verified 11/03/24 10:48) anaphylaxis penicillin V Allergy (Unknown, Verified 11/03/24 10:48) anaphylaxis Penicillins [PENICILLINS] Allergy (Unknown, Verified 11/03/24 10:48) ANAPHYLAXIS milk [Milk] Adverse Reaction (Intermediate, Verified 11/03/24 10:48) DIGESTIVE UPSET egg [Egg] Adverse Reaction (Mild, Verified 11/03/24 10:48) DIGESTIVE UPSET Medication List - Last Reconciled 11/03/24 by Miguelina Hernandez PA-C aspirin 81 mg PO DAILY atorvastatin 40 mg PO DAILY cetirizine (Zyrtec) 10 mg PO DAILY PRN fluoxetine 60 mg PO DAILY hydrocortisone 2.5% 1 appl topical TID PRN insulin glargine-lixisenatide 100 unit-33 mcg/mL (Soliqua 100/33) 15 units subcut QAM metformin 500 mg PO DAILY omeprazole 20 mg PO DAILY PFSH Medical History Depression Dry skin dermatitis History of mammogram (~05/23/24) Bilateral ankle pain Anxiety Frequent falls Dysthymia History of DVT (deep vein thrombosis) Atypical chest pain Sarcoma Anxiety disorder Penicillin-induced anaphylaxis Dupuytren contracture Ovarian cyst Uterine prolapse History of breast cancer Vitamin D deficiency Hearing loss Type 2 diabetes mellitus Hypertriglyceridemia Mild hypercholesterolemia Hypertension Surgical History History of colonoscopy (~02/07/19) Physical exam (Primary Care) Vital Signs: Last Vital Signs Temp 97.0 F 11/03/24 10:13 Pulse 73 11/03/24 10:13 BP 118/60 11/03/24 10:13 Pulse Ox 97 11/03/24 10:13 Care Plan Goal for BP management: 130/80 BMI result Body Mass Index 24.6 normal bmi Coding Level of Care Code New Pt Level 4 (47324) Complex EM visit Add On G2211 Diagnoses Anxiety F41.9 Bilateral ankle pain M25.571; M25.572 Sarcoma C49.9 Type 2 diabetes mellitus E11.9 Hypertriglyceridemia E78.1 Mild hypercholesterolemia E78.00 Hypertension I10 Dry skin dermatitis L85.3 Depression F32.A Assessment & Plan Assessment & Plan (1) Anxiety: Code(s): F41.9 - Anxiety disorder, unspecified Category: Medical Plan: Will increase the patient's fluoxetine from 40 mg to 60 mg daily. Patient to continue with therapist as scheduled. Will refer to psychiatrist. Condition is chronic and stable continue to monitor. (2) Bilateral ankle pain: Code(s): M25.571 - Pain in right ankle and joints of right foot; M25.572 - Pain in left ankle and joints of left foot Category: Medical Plan: Will order bilateral ankle x-rays. Most likely related to arthritis. Condition is chronic and stable continue to monitor. 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 (4) Type 2 diabetes mellitus: Code(s): E11.9 - Type 2 diabetes mellitus without complications Category: Medical Plan: Patient currently on metformin 500 mg daily, Solique insulin 18 units. Being followed by Dr. Rosales endocrinology. A1C Goal <7.0. Condition is chronic and stable continue to monitor. (5) Hypertriglyceridemia: Code(s): E78.1 - Pure hyperglyceridemia Category: Medical Plan: Patient currently on atorvastatin 40 mg daily. Condition is chronic and stable continue to monitor. (6) Mild hypercholesterolemia: Code(s): E78.00 - Pure hypercholesterolemia, unspecified Category: Medical Plan: Patient currently on atorvastatin 40 mg daily. Condition is chronic and stable continue to monitor. (7) Hypertension: Code(s): I10 - Essential (primary) hypertension Category: Medical Plan: Patient currently on aspirin 81 mg daily. Not on any hypertensive medication at this time. Blood pressure Goal 130/80. Condition is chronic and stable continue to monitor. (8) Dry skin dermatitis: Code(s): L85.3 - Xerosis cutis Category: Medical Plan: Patient with dry dermatitis to right posterior ankle over her well healed scar. No signs of infection. There is no calf tenderness. Will prescribe hydrocortisone. Condition is chronic and stable continue to monitor. (9) Depression: Code(s): F32.A - Depression, unspecified Category: Medical Plan: Increase fluoxetine and refer to psychiatry for comprehensive medication evaluation. Continued follow-up with the current therapist. Plan Plan Patient was informed and verbally consented to the use of an ambient scribe for clinic note documentation during this visit. 1. Type 2 Diabetes Mellitus Continue metformin 500 mg bid, and insulin 18 units in the morning. Monitor glucose levels, Hemoglobin A1c will be checked in future labs. 2. Ankle Arthralgia X-rays ordered for further assessment. Consider physical therapy if indicated upon review of imaging results. 3. Generalized Anxiety Disorder Increase fluoxetine dosage to 60 mg daily. Referral to psychiatry for further evaluation of pharmacotherapy and possible comorbidity management. 4. Erythema And Scarring Prescribe topical steroid ointment for symptomatic relief. Monitor for infection or worsening. 5. Major Depressive Disorder Increase fluoxetine and refer to psychiatry for comprehensive medication evaluation. Continued follow-up with the current therapist. Orders: Orders Complete Blood Count Auto Diff Today Z00.00 - Encounter for general adult medical examination without abnormal findings Lipid Panel Today Z00.00 - Encounter for general adult medical examination without abnormal findings Magnesium Today Z00.00 - Encounter for general adult medical examination without abnormal findings Microalbumin, Random (w Creat) Today E11.9 - Type 2 diabetes mellitus without complications Hemoglobin A1c Today Z00.00 - Encounter for general adult medical examination without abnormal findings XR ankle LT min 3V Today M25.571 - Pain in right ankle and joints of right foot, M25.572 - Pain in left ankle and joints of left foot Comprehensive [place]. Panel Fast Today Z00.00 - Encounter for general adult medical examination without abnormal findings C Reactive Protein Today Z00.00 - Encounter for general adult medical examination without abnormal findings Liver Panel Today Z00.00 - Encounter for general adult medical examination without abnormal findings TSH reflex Free T4 Today Z00.00 - Encounter for general adult medical examination without abnormal findings Vitamin B1 Today Z00.00 - Encounter for general adult medical examination without abnormal findings Vitamin B12 and Folate Today Z00.00 - Encounter for general adult medical examination without abnormal findings Vitamin D 25-OH Total Today Z00.00 - Encounter for general adult medical examination without abnormal findings XR ankle RT min 3V Today M25.571 - Pain in right ankle and joints of right foot, M25.572 - Pain in left ankle and joints of left foot Referrals Psychiatry Referral F41.9 - Anxiety disorder, unspecified Medications: New fluoxetine 60 mg PO DAILY 90 tabs 1RF hydrocortisone 2.5% 1 appl topical TID PRN 454 grams 0RF skin irritation Patient Instructions: Patient Instructions - Increase fluoxetine dosage to 60 mg once daily as prescribed. - Be attentive to symptom changes and report any adverse reactions to medication. - Attend the referred psychiatry consultation for further mental health management. - Continue current diabetic management and adhere to medication regimen. - Use prescribed ointment on the surgical scar twice daily for erythema and itching. - Schedule and complete the recommended X-ray for ankle evaluation. - Integrate daily exercises as instructed previously through physical therapy. - Contact our office if new symptoms arise or there's a significant change in health status. Scribe Plan - Not visible on output: History of Present Illness The patient is a 79-year-old female presenting for 6 month follow up. She has a PMHx of anxiety and depression. She reports increasing anxiety over minor stressors, notably related to family issues. Previously managed on Fluoxetine 40 mg, she reports inadequate symptom control. Her depressive symptoms are noted as being longstanding and not well managed in the past. The patient ceased driving last May, leading to increased dependency and anxiety. In addition, she has a medical history of Diabetes Mellitus Type 2, managed with Metformin and insulin. A history of hyperlipidemia is addressed with atorvastatin. She also manages gastroesophageal reflux with omeprazole. Seasonal rhinitis is symptomatically treated with Zyrtec. Previous evaluations revealed vitamin D deficiency without specified treatment adjustment during this visit. The patient exhibits erythema and scaly pigmentation due to a previous sarcoma surgery, with lymph nodes resection leading to potential lymphedema. There's associated pruritis, with assistance from topical treatments being required. Recent complaints include intermittent ankle discomfort, likely related to arthritis, and potentially exacerbated by previous radiation. There is a noted lack of consistent ambulation contributing to swelling and balance issues, leading to prior falls and emergency evaluations due to muscle weakness. Social History - Used to drive but stopped in May due to increasing anxiety and dependency. - Uses previous therapeutic exercises but lacks consistency in their application. - Speaks affectionately of interactions with grandchildren. - Reports a sedentary lifestyle during winter. Review of Systems - General: Denies panic attacks. - Musculoskeletal: Reports ankle stiffness and arthralgia, denies recent falls or trauma. - Skin: Reports dryness and itchiness over scarred leg area. - Neurological: Denies any new symptoms. - Sleep: Reports being woken early by a pet dog. Physical Exam Appearance: Alert. Oriented X3. No acute distress. Head: Normal external exam. Normocephalic. Atraumatic. Eyes: Pupils are equal, round, and reactive to light. Extraocular movements intact. Conjunctiva and sclera normal. Eyelids normal. Ears: External auditory canal normal. Throat: Pharynx normal. Uvula midline. Moist mucous membranes. Neck: Normal inspection. Neck supple. Full range of motion. Cardiovascular: Normal heart rate and rhythm. Heart sound normal. No murmurs noted. Pulses normal throughout. Respiratory: No respiratory distress. Painless inspiration. Breath sounds normal. No wheezes/rales/rhonchi noted. Chest nontender. No accessory muscle usage noted or decreased air movement noted. Abdomen: Soft and nontender. Bowel sounds normal in all 4 quadrants. No distention noted. No organomegaly noted. No visible injury noted. Back: No costovertebral angle tenderness. Full range of motion noted. Skin: Skin warm and dry. Normal skin color. Normal skin turgor. No rashes/lesions/lacerations noted. Large scar on the back of the leg, scaly and itchy, with some swelling. Extremities: No lower extremity pitting edema. Extremities exhibit normal range of motion. Extremities nontender. Ankles appear swollen, especially the one with a history of surgery and radiation on the right side with some dry dermatitis. There is no streaking, fluctuance, purulent drainage, spreading erythema or signs of active infection at this time. Normal pedal pulses. Neuro: Oriented X 3. No motor deficit. No sensory deficit. Reflexes normal. Results - Labs: Previous CBC normal, fasting glucose 122 mg/dL. - Previous Erythrocyte Sedimentation Rate (ESR) was within normal limits. Discussion Notes During the consultation, I discussed with the patient and her daughter the plan for increasing fluoxetine to manage anxiety and depression symptoms better. The potential need for a psychiatrist was covered, laying out the advantages of having expert input on psychopharmacological management. We reviewed the importance of managing diabetes and emphasized the continuation of current management with Metformin and insulin while considering a possible future dose adjustment based on lab results. Treatment for the erythema with topical steroids was explained, highlighting its utility in reducing inflammation and pruritus. Physical therapy was suggested as an option to address mobility issues, contingent on the patient's readiness to commit to consistent sessions. I scheduled diagnostic imaging to elucidate the ankle issues. Follow-up instructions were detailed, covering the need for monitoring symptoms and contacting me if any adverse changes occurred.
[2024-11-03 10:13] VITALS: BP 118/60; PULSE 73; TEMP 36.1; O2SAT 97; BMI 24.6
--- OUTSIDE RECORDS SUMMARY | 2024-11-03 11:02 | XMS_ITS | Data Portability ---
Author Organization [place] - [facility], Allergy Address [address] [place] [phone] Care Team Providers Care Tank Terminal Gauger Name Role Phone RUTHIE ZAMAN Primary Care Provider [phone] Assessment Encounter Date Assessment Date Assessment LastModified by Organization Details LastModified Time 05/15/2024 05/15/2024 79 year old female presents for cerumen removal. Cerumen impaction removed bilaterally. Bilateral TMs are intact. Follow up in 6 months for routine ear cleaning. [email or web address] Not available 05/15/2024 11:23:16 10/17/2024 10/17/2024 79 year old female presents for cerumen removal. Cerumen impaction removed bilaterally. Bilateral TMs are intact. Follow up in 6 months for routine ear cleaning. [email or web address] Not available 10/17/2024 10:31:47 Plan of Treatment Reminders Order Date Submit Date Provider Last Modified By Organization Details Last Modified Time Details Appointments Establish ed 15 2024 11:15A M DAWN LEHMAN PA-C Not available Not available Not available Lab None recorded. Referral None recorded. Procedures None recorded. Surgeries None recorded. Imaging None recorded. Medication Orders None recorded. Patient TargetsNo targets recorded. Patient InstructionsNo instructions recorded. Reason for Referral None Reported. Results Created Date Observation Date Name Description Value Unit Range Abnormal Flag Note LastModifiedBy Organization Detail LastModifiedTime 04/29/2010/25/2018 imagi ng/di agnos tic resul t No observ ation record ed. [email or web address] Not Available 23:16:45 04/29/2004/09/2019 imagi ng/di agnos tic resul t No observ ation record ed. [email or web address] Not Available 23:16:55 Result Notes None recorded. Problems Name Problem SNOMED Code Status Onset Date Resolution Date Notes Provider Name and Address Organization Details Recorded Time Candidal otitis externa 03851407 Active 2019 Candidal otitis externa; Note: Date Diagnosed : 03/26/2020 10:18 AM (B37.84) Not Available [facility] 4 03:17:44 Impacted cerumen of bilateral ears [id number] 62784 Active 2019 Impacted cerumen, bilateral ; Note: Date Diagnosed : 09/16/2019 3:17 PM (H61.23) Not Available [facility] 4 03:17:45 Sensorine ural hearing loss of bilateral ears 845134777 Active 2019 Sensorine ural hearing loss, bilateral ; Note: Date Diagnosed : 09/16/2019 3:17 PM (H90.3) Not Available [facility] 4 03:17:45 Problem Notes None recorded. Procedures Surgical History Date Name Laterality Status Provider Name and Address Organization Details Recorded Time 5 Cerumen removal without microscope bilat completed DAWN LEHMAN PA-C [address] [place] [address], [phone], [facility] 10/17/2024 10:31:43 4 Cerumen removal without microscope bilat completed DAWN LEHMAN PA-C [address] [place] [address], [phone], [facility] 05/15/2024 11:22:21 Imaging Results Imaging Date [...] Name and Address Organization Details Recorded Time 789401 penicilli n V potassium medicatio n other Not available Not available 01/22/2024 5 RxNorm React ion: unkno wn, unspe cifie d;; Not Available [facility] 01:25:20 Medications Name Sig Start Date Stop [...] mg tablet 11/22 completed Medicati on ID: [id number] D uration Value: 90 Brand Name: atorvast attita Fong d Method: E-Prescr ibed Sub s Allowed: subs OK Speci al Instruct ion: TAKE 1 TABLET BY MOUTH EVERY DAY Medi cationGe nericNam e: atorvast atin Not Available Not Available Not Available lorazepam 2 mg tablet TAKE 1 TABLET BY MOUTH BEFORE MRI 1 DAYS active Not Available Not Available No t Available clotrimaz ole 1 % topical solution 2019 active Medicati on ID: [id number] D uration Value: 28 Prescri bed By Name: ANDREW Ball nd Name: marco antonio Fong d Method: E-Prescr ibed Sub s Allowed: subs OK Speci al Instruct ion: 4 drops to both [...] mg capsule 11/22 completed Medicati on ID: [id number] D uration Value: 90 Brand Name: fluoxeti ne Send Method: E-Prescr ibed Sub s Allowed: subs OK Medic ationGen ericName : fluoxeti ne Not Available Not Available Not Available metformin ER 500 mg tablet,ex tended release 24 hr 11/22 completed Medicati on ID: [id number] D uration Value: 90 Brand Name: metformi n Send Method: E-Prescr ibed Sub s Allowed: subs OK Speci al Instruct ion: TAKE 3 TABLETS BY MOUTH DAILY Me dication GenericN yvette: formi n Not Available Not Available Not Available multivita min 11/22 completed Medicati on ID: [id number] B rand Name: multivit diaz Sen d Method: E-Prescr ibed Sub s Allowed: subs OK Medic ationGen ericName : multivit diaz Not Available Not Available Not Available Vitamin D3 50 mcg (2,000 unit) tablet 11/22 completed Medicati on ID: [id number] B rand Name: Vitamin D3 Send Method: E-Prescr ibed Sub s Allowed: subs OK Medic ationGen ericName : Vitamin D3 Not Available Not Available Not Available Zyrtec 10 mg capsule Take 1 capsule by mouth once a day as needed 11/22 completed Medicati on ID: [id number] D uration Value: 1 Brand Name: Zyrtec S end Method: E-Prescr ibed Sub s Allowed: subs OK Medic ationGen ericName : Zyrtec Not Available Not Available Not Available Basaglar KwikPen U-100 Insulin 100 unit/mL (3 mL) subcutane ous 11/22 completed Medicati on ID: [id number] D uration Value: 90 Brand Name: Basaglar KwikPen U-100 Insulin Send Method: E-Prescr ibed Sub s Allowed: subs OK Speci al Instruct ion: INJECT 46 UNITS UNDER THE SKIN DAILY. Maria Esther Rao Name: Basaglar KwikPen U-100 Insulin Not Available Not Available Not Available Soliqua 100/33 100 unit-33 mcg/mL subcutane ous insulin pen INJECT 25 UNITS UNDER THE SKIN DAILY. INJECT UP TO 25 UNITS ONCE DAILY active Not Available Not Available No t Available BD Aleah 2nd Gen Pen Needle 32 gauge x /32 INJECT 1 EACH UNDER THE SKIN EVERY MORNING. active Not Available Not Available No t Available aspirin 81 mg capsule 11/22 completed Medicati on ID: [id number] B rand Name: Aspir-81 Send Method: E-Prescr ibed Sub s Allowed: subs OK Medic ationGen ericName : Aspir-81 Not Available Not Available Not Available Vitals Date Recorded Body height Body mass index (BMI) Body weight Provider Name and Address Organization Details Last Updated DateTime 05/15/2024 170.18 cm 24 kg/m2 75118.63 g Shania Avalos [place] - [facility] 05/15/2024 11:22:38 Social History None recorded. Functional Status None recorded. Mental Status None recorded. Family History Nothing Reported. Medical History No medical history recorded. Gynecological HistoryNo gynecological history recorded. Obstetrics History GPAL:G 0 P 0 0 0 0 Past Encounters Encounter ID Performer Location Encounter Start Date Encounter Closed Date Diagnosis/Indication Diagnosis SNOMED-CT Code Diagnosis ICD10 Code Diagnosis Note [id number] MIRLANDE APONTE MD [facility] [address] [address] 05/15/2024 11:11:41 05/15/2024 11:34:21 Impacted cerumen of bilateral ears [id number] 925917 H61.23 [id number] ZINA SILVA MD [facility] [address] [address] 10/17/2024 10:28:54 10/17/2024 10:55:36 Impacted cerumen of bilateral ears 0772075123 375433 H61.23 Health Concerns Section Related Observation LastModified by Organization Detai ls LastModified Time None Recorded Concern Status LastModified by Organization Details LastModified Time None Recorded Advance Directives Directive None Recorded Payers Encounter Date Sequence Insurance Name Policy Number Policy Valle Covered Member ID Valle Member ID Guarantor Name 05/15/2024 1 [place] [employer] Shannan L Layzer [id number] Shannan L Layzer 05/15/2024 2 [place] [id number] Shannan L Layzer [id number] 25 Shannan L Layzer 10/17/2024 1 [place] [employer] Shannan L Layzer [id number] Shannan L Layzer 10/17/2024 2 [place] [id number] Shannan L Layzer [id number] 25 Shannan L Layzer Notes Date Note Type Note Provider Name and Address Organization Details Recorded Time 05/15/2024 text/html 79 year old female presents for cerumen removal. No concerns today. MIRLANDE APONTE MD [address] [place] [address], [phone], [facility] - [facility] 05/15/2024 16:31:26 10/17/2024 text/html 79 year old female presents for cerumen removal. No concerns today. ZINA SILVA MD [address] [place] [address], [phone], [facility] - [facility] 10/17/2024 12:56:20 OBGyn Episode No OBEpisode recorded.
--- OUTSIDE RECORDS SUMMARY | 2024-11-03 11:03 | XMS_ITS | Continuity of Care Document ---
Author Organization [place] - [facility], [facility] Address [address] [place] [address] Care Team Providers Care Medicare Biller Name Role Phone RUTHIE ZAMAN Primary Care Provider Assessment Encounter Date Assessment Date Assessment LastModified by Organization Details LastModified Time 10/17/2024 10/17/2024 79 year old female presents for cerumen removal. Cerumen impaction removed bilaterally. Bilateral TMs are intact. Follow up in 6 months for routine ear cleaning. [email or web address] Not available 10/17/2024 10:31:47 Plan of Treatment [...] instructions recorded. Reason for Referral None Reported. Problems Name Problem SNOMED Code Status Onset Date Resolution Date Notes Provider Name and Address Organization Details Recorded Time Candidal otitis externa 56478352 Active 2019 Candidal otitis externa; Note: Date Diagnosed : 03/26/2020 10:18 AM (B37.84) Not Available [facility] 4 03:17:44 Impacted cerumen of bilateral ears 86610960869 43529 Active 2019 Impacted cerumen, bilateral ; Note: Date Diagnosed : 09/16/2019 3:17 PM (H61.23) Not Available [facility] 4 03:17:45 Sensorine ural hearing loss of bilateral ears 974929167 Active 2019 Sensorine ural hearing loss, bilateral ; Note: Date Diagnosed : 09/16/2019 3:17 PM (H90.3) Not Available [facility] 4 03:17:45 Problem Notes None recorded. Procedures Surgical History Date Name Laterality Status Provider Name and Address Organization Details Recorded Time 5 Cerumen removal without microscope bilat completed DAWN LEHMAN PA-C [address] [place] [address], [phone], [facility] 10/17/2024 10:31:43 4 Cerumen removal without microscope bilat completed DAWN LEHMAN PA-C [address] [place] [address], [phone], [facility] 05/15/2024 11:22:21 Imaging Results None recorded. Procedure Notes None recorded. Medical Equipment None Reported. Allergies Allergen ID Allergen Name Allergen Category Reaction Reaction Severity Criticality Documentation Date Start Date Code Code System Note Provider Name and Address Organization Details Recorded Time 825624 penicilli n V potassium medicatio n other Not available Not available 01/22/2024 5 RxNorm React ion: unkno wn, unspe cifie d;; Not Available [facility] 4 01:25:20 Medications Name Sig Start Date [...] mg tablet 11/22 completed Medicati on ID: [id number] D uration Value: 90 Brand Name: atorvast [...] topical solution 2019 active Medicati on ID: [id number] D uration Value: 28 Prescri bed By Name: ANDREW Ball nd Name: marco antonio arnold Ajit d Method: E-Prescr ibed Sub s Allowed: [...] mg capsule 11/22 completed Medicati on ID: [id number] D uration Value: 90 Brand Name: fluoxeti ne Send Method: E-Prescr ibed Sub s Allowed: subs OK Medic ationGen ericName : fluoxeti ne Not Available Not Available Not Available metformin ER 500 mg tablet,ex tended release 24 hr 11/22 completed Medicati on ID: [id number] D uration Value: 90 Brand Name: metformi n Send Method: E-Prescr ibed Sub s Allowed: subs OK Speci al Instruct ion: TAKE 3 TABLETS BY MOUTH DAILY Me dication GenericN yvette: metformi n Not Available Not Available Not Available multivita min 11/22 completed Medicati on ID: [id number] B rand Name: multivit diaz Ajit d Method: E-Prescr ibed Sub s Allowed: subs OK Medic ationGen ericName : multivit diaz Not Available Not Available Not Available Vitamin D3 50 mcg (2,000 unit) tablet 11/22 completed Medicati on ID: [id number] B rand Name: Vitamin D3 Send Method: E-Prescr ibed Sub s Allowed: subs OK Medic ationGen ericName : Vitamin D3 Not Available Not Available Not Available Zyrtec 10 mg capsule Take 1 capsule by mouth once a day as needed 11/22 completed Medicati on ID: [id number] D uration Value: 1 Brand Name: Zyrtec S end Method: E-Prescr ibed Sub s Allowed: subs OK Medic ationGen ericName : Zyrtec Not Available Not Available Not Available Basaglar KwikPen U-100 Insulin 100 unit/mL (3 mL) subcutane ous 11/22 completed Medicati on ID: [id number] D uration Value: 90 Brand Name: Shahidaglerinn KwikPen U-100 Insulin Send Method: E-Prescr ibed Sub s Allowed: subs OK Speci al Instruct ion: INJECT 46 UNITS UNDER THE SKIN DAILY. M edicatio nGeneric Name: Roge YeeikPen U-100 Insulin Not Available Not Available Not [...] mg capsule 11/22 completed Medicati on ID: [id number] B rand Name: Aspir-81 Send Method: E-Prescr ibed Sub s Allowed: subs OK Medic ationGen ericName : Aspir-81 Not Available Not Available Not Available Vitals None Recorded Social History None recorded. Functional Status None recorded. Mental Status None recorded. Family History Nothing Reported. Medical History No medical history recorded. Gynecological HistoryNo gynecological history recorded. Obstetrics History GPAL:G 0 P 0 0 0 0 Past Encounters Encounter ID Performer Location Encounter Start Date Encounter Closed Date Diagnosis/Indication Diagnosis SNOMED-CT Code Diagnosis ICD10 Code Diagnosis Note [id number] ZINA SILVA MD [facility] [address] [address] 10/17/2024 10:28:54 10/17/2024 10:55:36 Impacted cerumen of bilateral ears [id number] 949519 H61.23 Health Concerns Section Related Observation LastModified by Organization Detai ls LastModified Time None Recorded Concern Status LastModified by Organization Details LastModified Time None Recorded Payers Encounter Date Sequence Insurance Name Policy Number Policy Valle Covered Member ID Valle Member ID Guarantor Name 10/17/2024 1 [place] [employer] Shannan Dickson [id number] Shannan Dickson 10/17/2024 2 [place] [id number] Shannan Dickson [id number] 25 Shannan Dickson Notes Date Note Type Note Provider Name and Address Organization Details Recorded Time 10/17/2024 text/html 79 year old female presents for cerumen removal. No concerns today. ZINA SILVA MD [address] [place] [address], [phone], [facility] - [facility] 10/17/2024 12:56:20 OBGyn Episode No OBEpisode recorded.
== END 2024-11-03 10:45 | disposition home or self-care (01) ==
LOC: HO.HMCSH 09:59
PROVIDERS: PCP Internal Medicine; Visit Provider Physician Assistant Medical
DX: F41.9 Anxiety disorder, unspecified (principal); M25.571 Pain in right ankle and joints of right foot; M25.572 Pain in left ankle and joints of left foot; C49.9 Malignant neoplasm of connective and soft tissue, unspecified; E11.9 Type 2 diabetes mellitus without complications; E78.1 Pure hyperglyceridemia; E78.00 Pure hypercholesterolemia, unspecified; I10 Essential (primary) hypertension; L85.3 Xerosis cutis; F32.A Depression, unspecified

== ENCOUNTER → 2024-11-03 09:59 | Outpatient (BNVA) | payer MEDICARE, SELFPAY | PROVIDERS: PCP Internal Medicine; Visit Provider Physician Assistant Medical | DX: F41.9 Anxiety disorder, unspecified (principal); M25.571 Pain in right ankle and joints of right foot; M25.572 Pain in left ankle and joints of left foot; C49.9 Malignant neoplasm of connective and soft tissue, unspecified; E11.9 Type 2 diabetes mellitus without complications; E78.1 Pure hyperglyceridemia; E79.0 Hyperuricemia without signs of inflammatory arthritis and tophaceous disease; I10 Essential (primary) hypertension; F32.A Depression, unspecified; L85.3 Xerosis cutis | CPT/HCPCS: 99202 ==

== ENCOUNTER 2025-02-06 13:31 | Outpatient (AMB) | payer MEDICARE, SELFPAY ==
--- NOTE | 2025-02-06 13:34 | A.OFFPC_ITS ---
Vital Signs 02/06/25 13:35 Height 5 ft 5.75 in Weight 152 lb BMI 24.7 BP 114/56 L Respiration 12 Pulse 82 Pulse Source Pulse Oximeter Temp 97.8 F Temp Source Temporal Artery Scan Pulse Oximetry (%) 97 Oxygen Delivery Method Room Air Intake Visit Reasons: Lump on left side of face Healthcare Corporate Account Director Required: No Accompanied by: Daughter Allergies penicillin G Allergy (Unknown, Verified 02/06/25 14:02) anaphylaxis penicillin V Allergy (Unknown, Verified 02/06/25 14:02) anaphylaxis Penicillins [PENICILLINS] Allergy (Unknown, Verified 02/06/25 14:02) ANAPHYLAXIS milk [Milk] Adverse Reaction (Intermediate, Verified 02/06/25 14:02) DIGESTIVE UPSET egg [Egg] Adverse Reaction (Mild, Verified 02/06/25 14:02) DIGESTIVE UPSET Medication List - Last Reconciled 02/06/25 by Miguelina Hernandez PA-C aspirin 81 mg PO DAILY atorvastatin 40 mg PO DAILY cetirizine (Zyrtec) 10 mg PO DAILY PRN fluoxetine 20 mg PO DAILY fluoxetine 40 mg PO DAILY hydrocortisone 2.5% 1 appl topical TID PRN insulin glargine-lixisenatide 100 unit-33 mcg/mL (Soliqua 100/33) 18 units subcut QAM metformin 500 mg PO DAILY omeprazole 20 mg PO DAILY Tobacco use date assessed: 02/06/25 Fall risk assessment: No Falls in past year Last assessed Fall Risk: 02/06/25 Dental Screening Dental Screen Date: 02/06/25 Did you have a dental visit in the last 12 months?: Yes Did you have a dental problem in the last 6 months where you did not have access to dental care?: No Was dental information given to patient?: Patient has dentist (patient has dentures) HPI Lump on left side of face HPI Details The patient is a 79-year-old female presenting with a lump on the side of her face that has been present for a few months. She noted the lump approximately one month ago but it might have been present longer. There is no associated pain or discomfort, nor symptoms such as hearing changes or tinnitus. No trauma or falls have been reported. The patient utilizes dentures, suggesting not a dental origin. She also denies any ear pain or significant swelling in the area of the lump. The concern has grown as the lump has persisted beyond initial expectations of resolution. 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 Social History - Family status: The patient is actively involved with family; specific interaction with her daughter was noted. - Functional status: Requires assistance from family members for certain activities; concern indicated towards potentially unmanaged blood sugar and household affairs. - Family planning: Healthcare proxy pauline cavazos discussed, daughter chosen as primary agent. - Type of residence or housing arrangeme nt not detailed, but caregiver involvement noted. [facility] Medical History Lump on face Depression Dry skin dermatitis History of mammogram (~05/23/24) Bilateral ankle pain Anxiety Frequent falls Dysthymia History of DVT (deep vein thrombosis) Atypical chest pain Sarcoma Anxiety disorder Penicillin-induced anaphylaxis Dupuytren contracture Ovarian cyst Uterine prolapse History of breast cancer Vitamin D deficiency Hearing loss Type 2 diabetes mellitus Hypertriglyceridemia Mild hypercholesterolemia Hypertension Surgical History History of colonoscopy (~02/07/19) Family History Father No problems noted. Mother No problems noted. Social History Housing: Condominium Alcohol intake: current Alcohol intake frequency: does not drink Patient Tobacco Use Status: Former Tobacco user service: No Current occupational status: retired Cognitive needs: No Hearing needs: Yes (b/l hearing aids) Vision needs: Yes (rx glasses ) Questionnaire PHQ-9 Over the last 2 weeks, how often have you been bothered by any of the following problems? 1. Little interest or pleasure in doing things: several days 2. Feeling down, depressed, or hopeless: nearly every day 3. Trouble falling or staying asleep, or sleeping too much: nearly every day 4. Feeling tired or having little energy: nearly every day 5. Poor appetite or overeating: not at all 6. Feeling bad about yourself - or that you are a failure or have let yourself or your family down: several days 7. Trouble concentrating on things, such as reading the newspaper or watching television: not at all 8. Moving or speaking so slowly that other people could have noticed. Or the opposite - being so fidgety or restless that you have been moving around a lot more than usual: not at all 9. Thoughts that you would be better off or of hurting yourself in some way: not at all Total score: 11 Depression Screening Interpretation: Positive Depression Screening Follow-up: Existing condition, In treatment and Follow-up Visit Requested Depression Screening Done: Yes 01226 - PHQ-9 Billing: Yes Source: Developed by Drs. Chandan Holloway, Luz Farias, Obi Chapman and colleagues, with an educational jasiel from [employer]. Thrive Questionnaire Date Thrive assessed: 02/06/25 I am a: Patient What is your living situation today?: I have a steady place to live Within the past 12 months, did the food you bought not last and you didn't have the money to get more?: Never true Within the past 12 months, did you worry whether your food would run out before you got money to buy more?: Never true Do you have trouble paying for medicines?: No Do you have trouble getting transportation to medical appointments?: No Do you have trouble paying your heating and electricity bill?: No Do you have trouble taking care of your child, family member or friend?: No Do you have trouble with day-to-day activities such as bathing, preparing meals, shopping, managing finances, etc.?: No Are you currently unemployed and looking for a job?: No Are you interested in more education?: No Please select the resources that you would like help with: None THRIVE Score: 0 AUDIT C Alcohol Use Questionnaire (AUDIT-C) 1. How often do you have a drink containing alcohol?: Never 3. How often do you have six or more drinks on one occasion?: Never Total Score: 0 Score Reviewed/Action Taken: No IRENE-7 AMB Questionnaire IRENE-7 Date IRENE - 7 assessed: 02/06/25 Feeling nervous, anxious, or on edge: 3 = Nearly every day Not being able to stop or control worryin = Several days Worrying too much about different things: 1 = Several days Trouble relaxin = Not at all Being so restless that it is hard to sit still: 0 = Not at all Becoming easily annoyed or irritable: 1 = Several days Feeling afraid as if something awful might happen: 1 = Several days Total IRENE-7 score (0-4 normal; 5-9 mild; 10-14 moderate; 15-21 severe): 7 Source: Developed by Drs. Chandan Holloway, Luz Farias, Obi Chapman and colleagues, with an educational jasiel from [employer]. IRENE-7 Assessment Billing IRENE-7 Assessment Tool: IRENE-7 Assessment 02955 Review of Systems Const Details: - Head and Neck: Reports a lump on face; Denies pain, swelling, or hearing changes. - Ears: Denies pain or hearing changes. - Mouth/Throat: Denies swelling or pain. - General: Denies recent trauma or falls. Physical exam (Primary Care) Vital Signs: Last Vital Signs Temp 97.8 F 02/06/25 13:35 Pulse 82 02/06/25 13:35 Resp 12 02/06/25 13:35 BP 114/56 L 02/06/25 13:35 Pulse Ox 97 02/06/25 13:35 Oxygen Delivery Method Room Air 02/06/25 13:35 Care Plan Goal for BP management: <140/90 at Goal BMI result Body Mass Index 24.7 BMI Assessment/Plan discussion: High BMI High, discussed plan: lifestyle, weight reduction, dietary, physical activity and alcohol moderation Tobacco/Smoking Status: Tobacco use Status Tobacco use date assessed 02/06/25 02/06/25 13:49 Patient Tobacco Use Status Former Tobacco user 02/06/25 13:49 PHQ-9: PHQ-9 Score PHQ-9: Total score 11 02/06/25 13:50 Depression Screening Interpretation: Positive Depression Screening Follow-up: Existing condition, In treatment and Follow-up Visit Requested Thrive Assessment: Date of Thrive Assessment Date Thrive assessed 02/06/25 02/06/25 13:49 Advance Care Planning discussion: Completed/Scanned Date of discussion: 02/06/25 Who was present: Patient, Daughter, HarshMiguelina PA-C Forms completed: Health Care Proxy and MOLST Time spent: 16-45 minutes Did not discuss due to Cultural/Spiritual beliefs: No Const Other: Appearance: Alert. Oriented X3. No acute distress. Head: Normal external exam. Normocephalic. Atraumatic. Lump on face noted. Eyes: Pupils are equal, round, and reactive to light. Extraocular movements intact. Conjunctiva and sclera normal. Eyelids normal. Ears: External auditory canal normal. Tympanic membranes normal. No hearing changes or pain reported. Throat: Pharynx normal. Uvula midline. Moist mucous membranes. Normal tonsils. No obvious abscess noted. Not consistent with pharyngeal abscess, Chiki's angina. No obvious stone in the wart and noticed Stensen's duct noted. Patient tolerating secretions well. Normal voice. There is no trismus/stridor noted. Neck: Normal inspection. Neck supple. Full range of motion. No adenopathy. Thyroid Normal. No meningeal signs. No neck mass noted. Cardiovascular: Normal heart rate and rhythm. Respiratory: No respiratory distress. Painless inspiration. Back:Full range of motion noted. Skin: Skin warm and dry. Normal skin color. Normal skin turgor. No rashes/lesions/lacerations noted. Extremities: Extremities exhibit normal range of motion. Neuro: Oriented X 3. No motor deficit. No sensory deficit. Reflexes normal. Coding Level of Care Code Est Pt Level 4 (58499) Complex EM visit Add On G2211 Diagnoses Lump on face R22.0 Type 2 diabetes mellitus E11.9 Additional Codes PHQ-9 - 94578 - PHQ-9 Billing: Yes ([id number]) IRENE-7 Assessment Billing - IRENE-7 Assessment Tool: IRENE-7 Assessment 12746 ([id number]) Vital Signs *Quality* - Advance Care Planning discussion: Completed/Scanned ([id number]) Vital Signs *Quality* - Time spent: 16-45 minutes ([id number]) Assessment & Plan Assessment & Plan (1) Lump on face: Code(s): R22.0 - Localized swelling, mass and lump, head Category: Medical Plan: The lump will require further evaluation. I have ordered a facial CT scan with contrast to determine the nature of the mass, after ensuring the patient's renal function is suitable for contrast use. A blocked salivary gland is a possibility, and an attempt to relieve possible salivary blockage through increased salivation with sour candies is advised. Patient should monitor for changes and report them promptly. (2) Type 2 diabetes mellitus: Code(s): E11.9 - Type 2 diabetes mellitus without complications Category: Medical Plan: The current management with insulin and metformin should continue, with careful monitoring of blood glucose levels. I will review her glucose control and potentially A1c levels during follow-up blood tests, especially with potential increased candy intake if attempting to relieve a possible blocked salivary gland. Condition is chronic and stable continue to monitor. Plan Plan Patient was informed and verbally consented to the use of an ambient scribe for clinic note documentation during this visit. 1. Lump On Face The lump will require further evaluation. I have ordered a facial CT scan with contrast to determine the nature of the mass, after ensuring the patient's renal function is suitable for contrast use. A blocked salivary gland is a possibility, and an attempt to relieve possible salivary blockage through increased salivation with sour candies is advised. Patient should monitor for changes and report them promptly. 2. Diabetes Mellitus The current management with insulin and metformin should continue, with careful monitoring of blood glucose levels. I will review her glucose control and potentially A1c levels during follow-up blood tests, especially with potential increased candy intake if attempting to relieve a possible blocked salivary gland. I discussed with the patient the potential causes for the lump, including a blocked salivary duct, and proposed a facial CT scan to investigate further since no overt signs of infection or malignancy were found clinically. We reviewed the importance of verifying renal function due to the CT contrast requirement. The patient was advised to experiment with increasing saliva production using sour candies to possibly ease a blocked duct. Regarding diabetes management, continuation of her current regimen of insulin and metformin was confirmed. Educational reinforcement regarding stable blood sugar management was provided, and we discussed prior negligences in previous psychiatric referrals were addressed, promising follow-up action to fill this gap. The urgency for comprehensive evaluations due to recent declined health was also communicated, along with steps for updating her healthcare proxy designation. Orders: Orders CT facial bones w IV con Today R22.0 - Localized swelling, mass and lump, head Comprehensive Met. Panel Today Z00.00 - Encounter for general adult medical examination without abnormal findings Patient Instructions: - Get blood work done today (non-fasting) except for the lipid panel, and get fasting blood work later if instructed. - Follow through with scheduling the ordered CT scan of your face. - Suck on lemon candies or sour treats to potentially help your salivary gland, but monitor your blood sugar when doing so. - Keep a close watch on the lump for any changes in size or symptoms, and report those immediately. - Update your healthcare proxy information as discussed with your daughter. - Take prescribed medications as directed and monitor blood sugar levels regularly.
[2025-02-06 13:35] VITALS: BP 114/56; PULSE 82; RESP 12; TEMP 36.6; O2SAT 97; BMI 24.7
== END 2025-02-06 14:26 | disposition home or self-care (01) ==
LOC: HO.HMCSH 13:31
PROVIDERS: PCP Internal Medicine; Visit Provider Physician Assistant Medical
DX: R22.0 Localized swelling, mass and lump, head (principal); E11.9 Type 2 diabetes mellitus without complications; Z00.00 Encounter for general adult medical examination without abnormal findings

== ENCOUNTER → 2025-02-06 13:31 | Outpatient (BNVA) | payer MEDICARE, SELFPAY | PROVIDERS: PCP Internal Medicine; Visit Provider Physician Assistant Medical | DX: R22.0 Localized swelling, mass and lump, head (principal); E11.9 Type 2 diabetes mellitus without complications | CPT/HCPCS: 96127; 99212; 99497 ==

== ENCOUNTER 2025-02-09 08:36 | Outpatient (REF) | payer MEDICARE, SELFPAY ==
[2025-02-09 10:05] LABS: MANUAL DIFF FLAG NO
[2025-02-09 10:17] LABS: Basophils Absolute Auto 0.1 X10*3/uL (0.0-0.2); Basophils Percent Auto 0.9 % (0-2); Eosinophils Absolute Auto 0.2 X10*3/uL (0.0-0.4); Eosinophils Percent Auto 2.4 % (0-4); Hematocrit 39.5 % (37.0-47.0); Hemoglobin 13.3 g/dl (12.0-16.0); Imm Gran Abs Auto 0.02 X10*3/uL (0.00-0.03); Imm Gran Pct Auto 0.3 % (0.0-0.4); Lymphocytes Absolute Auto 1.6 X10*3/uL (1.2-4.9); Lymphocytes Percent Auto 23.4 % (20-40); Mean Corpuscular HGB Conc 33.7 g/dl (31.0-35.0); Mean Corpuscular Hemoglobin 29.7 pg (27.0-33.0); Mean Corpuscular Volume 88.2 fL (80.0-98.0); Mean Platelet Volume 9.2 fL (9.4-12.3); Monocytes Absolute Auto 0.5 X10*3/uL (0.1-1.2); Monocytes Percent Auto 7.9 % (2-11); Neutrophils Absolute Auto 4.4 x10*3/uL (2.0-8.3); Neutrophils Percent Auto 65.1 % (45-73); Platelet Count 233 X10*3/uL (160-400); Red Blood Count 4.48 X10*6/uL (4.20-5.50); Red Cell Distribution Width 13.2 % (11.0-16.0); White Blood Count 6.7 X10*3/uL (4.8-10.8)
[2025-02-09 10:23] LABS: Estimated Average Glucose 183 mg/dL; Hemoglobin A1C 224.7708 umol/L; Total Hemoglobin (HGBA1C) 3505.4957 umol/L
[2025-02-09 11:14] LABS: Alanine Aminotransferase 14 U/L (0-31); Albumin Level 3.9 g/dL (3.5-5.0); Alkaline Phosphatase 104 U/L (39-117); Anion Gap 9 (12-20); Aspartate Amino Transferase 21 U/L (5-31); Bilirubin Direct 0.2 mg/dL (0.0-0.5); Bilirubin Total 0.8 mg/dL (0.0-1.0); Blood Urea Nitrogen 8 mg/dL (9-16); C Reactive Protein < 0.10 mg/dL (< or = 0.50); Calcium 9.6 mg/dL (8.4-10.2); Carbon Dioxide 30 mmol/L (22-29); Chloride 105 mmol/L (96-108); Cholesterol 157 mg/dL (<200); Estimated Glomerular Filt Rate > 60; Glucose Random 182 mg/dL (60-115); HDL Cholesterol 39 mg/dL (>40); LDL Cholesterol Calculated 84 mg/dL (<100); Magnesium 1.7 mg/dL (1.6-2.6); Potassium 4.4 mmol/L (3.3-5.1); Sodium 140 mmol/L (135-145); TSH reflex Free T4 1.25 uIU/mL (0.32-4.0); Total Protein 6.4 g/dL (6.5-8.0); Triglycerides 172 mg/dL (<150); Vitamin D 25-OH Total 30.1 ng/mL (>30)
[2025-02-09 11:28] LABS: Folate 5.8 ng/mL (> or = 4.0); Vitamin B12 267 pg/mL (200-900)
[2025-02-09 12:02] LABS: Creatinine Urine 130.65 mg/dL; Microalbum/Creatinine Ratio Ur 14.5 ug/mg cr (<30)
[2025-02-13 16:29] LABS: Vitamin B1 7 nmol/L (8-30)
== END 2025-02-09 08:37 | disposition home or self-care (01) ==
LOC: HO.HMGCLDS 08:36
PROVIDERS: PCP Internal Medicine; Visit Provider Physician Assistant Medical
DX: Z00.00 Encounter for general adult medical examination without abnormal findings (principal); E11.9 Type 2 diabetes mellitus without complications; Z13.228 Encounter for screening for other metabolic disorders
CPT/HCPCS: 36415; 80053; 80061; 82043; 82248; 82306; 82570; 82607; 82746; 83036; 83735; 84425; 84443; 85025; 86140

== ENCOUNTER 2025-02-17 14:16 | Outpatient (REF) | payer SELFPAY ==
--- OUTSIDE RECORDS SUMMARY | 2025-02-17 17:11 | XMS_ITS | Data Portability ---
Author Organization [place] - [facility], Allergy Address [address] [place] [id number] Care Team Providers Care Surface Supply Breathing Apparatus Name Role Phone RUTHIE ZAMAN Primary Care Provider Assessment Encounter Date Assessment Date Assessment LastModified by Organization Details LastModified Time 05/15/2024 05/15/2024 79 year old female presents for cerumen removal. Cerumen impaction removed bilaterally. Bilateral TMs are intact. Follow up in 6 months for routine ear cleaning. [email or web address] Not available 05/15/2024 11:23:16 10/17/2024 10/17/2024 79 year old female presents for cerumen removal. Cerumen impaction removed bilaterally. Bilateral TMs are intact. Follow up in 6 months for routine ear cleaning. [email or web address] Not available 10/17/2024 10:31:47 Plan of Treatment [...] Organization Details Recorded Time Candidal otitis externa [id number] Active 2019 Candidal otitis externa; Note: Date Diagnosed : 03/26/2020 10:18 AM (B37.84) Not Available [facility] 4 03:17:44 Impacted cerumen of bilateral ears 42893043597 06078 Active 2019 Impacted cerumen, bilateral ; Note: Date Diagnosed : 09/16/2019 3:17 PM (H61.23) Not Available [facility] 4 03:17:45 Sensorine ural hearing loss of bilateral ears 477080283 Active 2019 Sensorine ural hearing loss, bilateral ; Note: Date Diagnosed : 09/16/2019 3:17 PM (H90.3) Not Available [facility] 4 03:17:45 Problem Notes None recorded. Procedures Surgical History Date Name Laterality Status Provider Name and Address Organization Details Recorded Time 5 Cerumen removal without microscope bilat completed DAWN LEHMAN PA-C [address] [place] [address], [phone], [facility] 10/17/2024 10:31:43 4 Cerumen removal without microscope bilat completed DAWN LEHMAN PA-C [address] [place] [address], [phone], [facility] 05/15/2024 11:22:21 Imaging Results None recorded. Procedure Notes None recorded. Medical Equipment None Reported. Allergies Allergen ID Allergen Name Allergen Category Reaction Reaction Severity Criticality Documentation Date Start Date Code Code System Note Provider Name and Address Organization Details Recorded Time [id number] penicilli n V potassium medicatio n other Not available Not available 01/22/2024 5 RxNorm React ion: unkno wn, unspe cifie d;; Not Available [facility] 4 01:25:20 Medications Name Sig [...] mg tablet 11/22 completed Medicati on ID: [id number] D uration Value: 90 Brand Name: atorvast [...] topical solution 2019 active Medicati on ID: [id number] D uration Value: 28 Prescri bed By Name: ANDREW Ball nd Name: marco antonio baird Method: E-Prescr ibed Sub s Allowed: subs [...] mg capsule 11/22 completed Medicati on ID: [id number] D uration Value: 90 Brand Name: fluoxeti ne Send Method: E-Prescr ibed Sub s Allowed: subs OK Medic ationGen ericName : fluoxeti ne Not Available Not Available Not Available metformin ER 500 mg tablet,ex tended release 24 hr 11/22 completed Medicati on ID: [id number] D uration Value: 90 Brand Name: metformi n Send Method: E-Prescr ibed Sub s Allowed: subs OK Speci al Instruct ion: TAKE 3 TABLETS BY MOUTH DAILY Me dication GenericN yvette: metformi n Not Available Not Available Not Available multivita min 11/22 completed Medicati on ID: [id number] B rand Name: multivit diaz Ajit d Method: E-Prescr ibed Sub s Allowed: subs OK Medic ationGen ericName : multivit diaz Not Available Not Available Not Available Vitamin D3 50 mcg (2,000 unit) tablet 11/22 completed Medicati on ID: [id number] B rand Name: Vitamin D3 Send Method: E-Prescr ibed Sub s Allowed: subs OK Medic ationGen ericName : Vitamin D3 Not Available Not Available Not Available Zyrtec 10 mg capsule Take 1 capsule by mouth once a day as needed 11/22 completed Medicati on ID: [id number] D uration Value: 1 Brand Name: Zyrtec S end Method: E-Prescr ibed Sub s Allowed: subs OK Medic ationGen ericName : Zyrtec Not Available Not Available Not Available Basaglar KwikPen U-100 Insulin 100 unit/mL (3 mL) subcutane ous 11/22 completed Medicati on ID: [id number] D uration Value: 90 Brand Name: Basaglar [...] mg capsule 11/22 completed Medicati on ID: [id number] B rand Name: Aspir-81 Send Method: E-Prescr ibed Sub s Allowed: subs OK Medic ationGen ericName : Aspir-81 Not Available Not Available Not Available Vitals Date Recorded Body height Body mass index (BMI) Body weight Provider Name and Address Organization Details Last Updated DateTime 05/15/2024 170.18 cm 24 kg/m2 95154.63 g Shania Avalos [place] - [facility] 05/15/2024 11:22:38 Social History None recorded. Functional Status None recorded. Mental Status None recorded. Family History Nothing Reported. Medical History No medical history recorded. Gynecological HistoryNo gynecological history recorded. Obstetrics History GPAL:G 0 P 0 0 0 0 Past Encounters Encounter ID Performer Location Encounter Start Date Encounter Closed Date Diagnosis/Indication Diagnosis SNOMED-CT Code Diagnosis ICD10 Code Diagnosis Note [id number] DAWN LEHMAN PA-C [facility] [address] [phone] 05/15/2024 11:11:41 05/15/2024 11:34:21 Impacted cerumen of bilateral ears 9861058831 771801 H61.23 [id number] DAWN LEHMAN PA-C [facility] [address] [phone] 10/17/2024 10:28:54 10/17/2024 10:55:36 Impacted cerumen of bilateral ears 3649818981 155215 H61.23 Health Concerns Section Related Observation LastModified by Organization Detai ls LastModified Time None Recorded Concern Status LastModified by Organization Details LastModified Time None Recorded Advance Directives Directive None Recorded Payers Insurance Date Sequence Insurance Name Policy Number Policy Valle Covered Member ID Valle Member ID Guarantor Name 10/15/2024 1 [place] [employer] [place] Shannan L Layzer [id number] Shannan L Layzer 10/15/2024 2 [place] [id number] Shannan L Layzer [id number] Shannan L Layzer Notes Date Note Type Note Provider Name and Address Organization Details Recorded Time 05/15/2024 text/html 79 year old female presents for cerumen removal. No concerns today. MIRLANDE APONTE MD [address] [place] [address], [phone], [place] - [facility] 05/15/2024 16:31:26 10/17/2024 text/html 79 year old female presents for cerumen removal. No concerns today. ZINA SILVA MD [address] [place] [address],[address], [phone], [place] - [facility] 10/17/2024 12:56:20 OBGyn Episode No OBEpisode recorded.
== END 2025-02-17 14:17 | disposition home or self-care (01) ==
LOC: HO.HAP 14:16
PROVIDERS: Visit Provider Internal Medicine
DX: Z13.89 Encounter for screening for other disorder (principal)

== ENCOUNTER 2025-03-06 09:04 | Outpatient (REF) | payer MEDICARE, SELFPAY ==
--- NOTE | ~2025-03-06 | CT_ITS ---
EXAMINATION: CT FACIAL BONES WITH CONTRAST CLINICAL INFORMATION: Localized swelling, mass and lump, head. Question of left Alyssa's duct, stone versus mass. COMPARISON: MR brain 09/05/2024. TECHNIQUE: Spiral CT imaging of the maxillofacial bones and mandible performed in axial plane after the administration of 85 cc Omnipaque 350 IV contrast. Multiplanar reformatted images were constructed from the axial data set. This CT examination was performed using dose optimization techniques as appropriate, variously including the following: *Automated exposure control *Adjustment of mA and/or kV according to patient size (this includes techniques or standardized protocols for targeted exams where dose is matched to indication/reason for exam; i.e. extremities or head) *Use of iterative reconstruction technique FINDINGS: There is a small oval mass in the anterior left parotid, overlying the left masseter muscle, measuring 1.1 x 1.3 x 0.8 cm, located in accessory anterior parotid tissue. This appears to directly abut the Alyssa's duct. There is no additional mass, lymphadenopathy, abnormal fluid collection, or cystic abnormality within the maxillofacial soft tissues. The globes, orbits, and orbital contents demonstrate lens replacements but are otherwise normal. Admin Asst spaces are normal. The submandibular spaces are normal. The right parotid gland is normal. There is no sialolith. The mucosal space is normal aside from mildly prominent lingual tonsils, presumably reactive. The tongue and tongue base appear normal. Imaged intracranial contents demonstrate no mass effect, edema, or abnormal enhancement. The ventricles, sulci, and cisterns are normal in size and configuration. Moderate mucosal thickening seen in the right maxillary antrum, with a patent maxillary ostium present. Remainder of the paranasal sinuses, mastoids, and tympanic spaces appear normally pneumatized. There are no bony abnormalities. There is a right maxillary and several mandibular dental implants. CT/CT facial bones w IV con IMPRESSION: 1. There is a small oval mass in the anterior left accessory parotid tissue, overlying the left masseter muscle, measuring 1.1 x 1.3 x 0.8 cm. Differential includes benign mixed tumor, Warthin's tumor, intraparotid lymph node, or less likely salivary gland malignancy. This was present on the MRI from 09/05/2024 and appears unchanged, making benign entity more likely. ENT consultation could be considered. 2. Moderate mucosal thickening right maxillary sinus, with a patent right maxillary ostium. 3. Remainder of the exam is normal. Electronically signed by: Eugenio Storey MD 03/06/2025 09:51 AM EDT
--- OUTSIDE RECORDS SUMMARY | 2025-03-06 09:23 | XMS_ITS | Data Portability ---
Author Organization [place] - [facility], Allergy Address [address] [address] Care Team Providers Care Fitness And Wellness Coordinator Name Role Phone RUTHIE ZAMAN Primary Care Provider [phone] Assessment Encounter Date Assessment Date Assessment LastModified by Organization Details LastModified Time 05/15/2024 05/15/2024 79 year old female presents for cerumen removal. Cerumen impaction removed bilaterally. Bilateral TMs are intact. Follow up in 6 months for routine ear cleaning. [email or web address] Not available 05/15/2024 11:23:16 10/17/2024 10/17/2024 79 year old female presents for cerumen removal. Cerumen impaction removed bilaterally. Bilateral TMs are intact. Follow up in 6 months for routine ear cleaning. [email or web address] Not available 10/17/2024 10:31:47 Plan of Treatment [...] Organization Details Recorded Time Candidal otitis externa 32284052 Active 2019 Candidal otitis externa; Note: Date Diagnosed : 03/26/2020 10:18 AM (B37.84) Not Available [facility] 4 03:17:44 Impacted cerumen of bilateral ears [id number] 66378 Active 2019 Impacted cerumen, bilateral ; Note: Date Diagnosed : 09/16/2019 3:17 PM (H61.23) Not Available [facility] 4 03:17:45 Sensorine ural hearing loss of bilateral ears 618348624 Active 2019 Sensorine ural hearing loss, bilateral ; Note: Date Diagnosed : 09/16/2019 3:17 PM (H90.3) Not Available [facility] 4 03:17:45 Problem Notes None recorded. Procedures Surgical History Date Name Laterality Status Provider Name and Address Organization Details Recorded Time 5 Cerumen removal without microscope bilat completed DAWN LEHMAN PA-C [address] [place] [address], [phone], [facility] 10/17/2024 10:31:43 4 Cerumen removal without microscope bilat completed DAWN LEHMAN PA-C [address] [place] [address], [phone], [facility] 05/15/2024 11:22:21 Imaging Results None recorded. Procedure Notes None recorded. Medical Equipment None Reported. Allergies Allergen ID Allergen Name Allergen Category Reaction Reaction Severity Criticality Documentation Date Start Date Code Code System Note Provider Name and Address Organization Details Recorded Time 833908 penicilli n V potassium medicatio n other Not available Not available 01/22/2024 5 RxNorm React ion: unkno wn, unspe cifie d;; Not Available [facility] 4 01:25:20 Medications Name Sig Start [...] mg tablet 11/22 completed Medicati on ID: [id number] D uration Value: 90 Brand Name: atorvast [...] topical solution 2019 active Medicati on ID: [id number] D uration Value: 28 Prescri bed By [...] mg capsule 11/22 completed Medicati on ID: [id number] D uration Value: 90 Brand Name: fluoxeti ne Send Method: E-Prescr ibed Sub s Allowed: subs OK Medic ationGen ericName : fluoxeti ne Not Available Not Available Not Available metformin ER 500 mg tablet,ex tended release 24 hr 11/22 completed Medicati on ID: [id number] D uration Value: 90 Brand Name: metformi n Send Method: E-Prescr ibed Sub s Allowed: subs OK Speci al Instruct ion: TAKE 3 TABLETS BY MOUTH DAILY Me dication GenericN yvette: metformi n Not Available Not Available Not Available multivita min 11/22 completed Medicati on ID: [id number] B rand Name: multivit diaz Sen d Method: E-Prescr ibed Sub s Allowed: subs OK Medic ationGen ericName : multivit diaz Not Available Not Available Not Available Vitamin D3 50 mcg (2,000 unit) tablet 11/22 completed Medicati on ID: [id number] B rand Name: Vitamin D3 Send Method: E-Prescr ibed Sub s Allowed: subs OK Medic ationGen ericName : Vitamin D3 Not Available Not Available Not Available Zyrtec 10 mg capsule Take 1 capsule by mouth once a day as needed 11/22 completed Medicati on ID: [id number] D uration Value: 1 Brand Name: Zyrtec S end Method: E-Prescr ibed Sub s Allowed: subs OK Medic ationGen ericName : Zyrtec Not Available Not Available Not Available Basaglar KwikPen U-100 Insulin 100 unit/mL (3 mL) subcutane ous 11/22 completed Medicati on ID: [id number] D uration Value: 90 Brand Name: Basaglar [...] mg capsule 11/22 completed Medicati on ID: [id number] B rand Name: Aspir-81 Send Method: E-Prescr ibed Sub s Allowed: subs OK Medic ationGen ericName : Aspir-81 Not Available Not Available Not Available Vitals Date Recorded Body height Body mass index (BMI) Body weight Provider Name and Address Organization Details Last Updated DateTime 05/15/2024 170.18 cm 24 kg/m2 05388.63 g Shania Avalos [place] [facility] 05/15/2024 11:22:38 Social History None recorded. Functional Status None recorded. Mental Status None recorded. Family History Nothing Reported. Medical History No medical history recorded. Gynecological HistoryNo gynecological history recorded. Obstetrics History GPAL:G 0 P 0 0 0 0 Past Encounters Encounter ID Performer Location Encounter Start Date Encounter Closed Date Diagnosis/Indication Diagnosis SNOMED-CT Code Diagnosis ICD10 Code Diagnosis Note [id number] DAWN LEHMAN PA-C [facility] [address] [address] 05/15/2024 11:11:41 05/15/2024 11:34:21 Impacted cerumen of bilateral ears [id number] 308418 H61.23 [id number] DAWN LEHMAN PA-C [facility] [address] [address] 10/17/2024 10:28:54 10/17/2024 10:55:36 Impacted cerumen of bilateral ears [id number] 502544 H61.23 Health Concerns Section Related Observation LastModified by Organization Detai ls LastModified Time None Recorded Concern Status LastModified by Organization Details LastModified Time None Recorded Advance Directives Directive None Recorded Payers Insurance Date Sequence Insurance Name Policy Number Policy Valle Covered Member ID Valle Member ID Guarantor Name 10/15/2024 1 [place] Shannan L Layzer [id number] Shannan L Layzer 10/15/2024 2 [place] [id number] Shannan L Layzer [id number] Shannan L Layzer Notes Date Note Type Note Provider Name and Address Organization Details Recorded Time 05/15/2024 text/html 79 year old female presents for cerumen removal. No concerns today. MIRLANDE APONTE MD [address] [place] [address], [phone], [place] [facility] 05/15/2024 16:31:26 10/17/2024 text/html 79 year old female presents for cerumen removal. No concerns today. ZINA SILVA MD [address] [place] [address], [phone], [place] [facility] 10/17/2024 12:56:20 OBGyn Episode No OBEpisode recorded.
[2025-03-06] MEDS: iohexoL 350 MG/ML 100 ML INFUS..BTL IV (09:30)
== END 2025-03-06 09:05 | disposition home or self-care (01) ==
LOC: HO.CT 09:04
PROVIDERS: PCP Internal Medicine; Visit Provider Physician Assistant Medical
DX: R22.0 Localized swelling, mass and lump, head (principal)
CPT/HCPCS: 70487; Q9967

== ENCOUNTER → 2025-03-06 09:06 | Outpatient (BNV) | payer MEDICARE, SELFPAY | PROVIDERS: PCP Internal Medicine; Visit Provider Radiology Diagnostic Radiology | DX: R22.0 Localized swelling, mass and lump, head (principal) | CPT/HCPCS: 70487 ==

== ENCOUNTER 2025-03-06 09:46 | Outpatient (REF) | payer SELFPAY | END 2025-03-06 09:47 | disposition home or self-care (01) | LOC: HO.HAP 09:46 | PROVIDERS: Visit Provider Internal Medicine | DX: Z46.1 Encounter for fitting and adjustment of hearing aid (principal) | CPT/HCPCS: V5014 ==

== ENCOUNTER 2025-03-23 12:49 | Outpatient (AMB) | payer MEDICARE, SELFPAY ==
--- NOTE | 2025-03-23 12:53 | A.OFFVIS_ITS ---
Vital Signs 3 03/23/25 13:04 Height 5 ft 5.75 in Weight 152 lb BMI 24.7 BP 154/72 H Blood Pressure Location Lt brachial Position Sitting Pulse 81 Intake Visit Reasons: facial nodule Intake Note: Patient is seen in office for evaluation of a lump on the face. 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 Required: No Accompanied by: Other Relationship Allergies penicillin G Allergy (Unknown, Verified 03/23/25 13:02) anaphylaxis penicillin V Allergy (Unknown, Verified 03/23/25 13:02) anaphylaxis Penicillins (PENICILLINS) Allergy (Unknown, Verified 03/23/25 13:02) ANAPHYLAXIS milk (Milk) Adverse Reaction (Intermediate, Verified 03/23/25 13:02) DIGESTIVE UPSET egg (Egg) Adverse Reaction (Mild, Verified 03/23/25 13:02) DIGESTIVE UPSET Medication List - Last Reconciled 03/23/25 by Roger Root MD aspirin 81 mg PO DAILY atorvastatin 40 mg PO DAILY cetirizine (Zyrtec) 10 mg PO DAILY PRN fluoxetine 20 mg PO DAILY fluoxetine 40 mg PO DAILY hydrocortisone 2.5% 1 appl topical TID PRN insulin glargine-lixisenatide 100 unit-33 mcg/mL (Soliqua 100/33) 18 units subcut QAM metformin 500 mg PO BID 90 days omeprazole 20 mg PO DAILY HPI Comments Details: 80-year-old female patient presenting with a soft tissue mass located in the left cheek noted approximately 1 month ago. She denies any significant change since then. She denies any pain, redness or discharge. She was evaluated by CT of the face on 03/06/2025. This confirmed a small oval mass in the anterior left parotid, overlying the left masseter muscle, measuring 1.1 x 1.3 x 0.8 cm located in the accessory anterior parotid gland. This appears to directly abut the Stensen's duct. Findings were felt to be a possible benign mixed tumor, Warthin's tumor, intraparotid lymph node, or less likely a salivary gland malignancy. ENT consultation was recommended. [facility] Medical History Abnormal CT scan, neck Lump on face Depression Dry skin dermatitis History of mammogram (~05/23/24) Bilateral ankle pain Anxiety Frequent falls Dysthymia History of DVT (deep vein thrombosis) Atypical chest pain Sarcoma Anxiety disorder Penicillin-induced anaphylaxis Dupuytren contracture Ovarian cyst Uterine prolapse History of breast cancer Vitamin D deficiency Hearing loss Type 2 diabetes mellitus Hypertriglyceridemia Mild hypercholesterolemia Hypertension Surgical History History of colonoscopy (~02/07/19) Family History Father No problems noted. Mother No problems noted. Social History Housing: Condominium Alcohol intake: current Alcohol intake frequency: does not drink Patient Tobacco Use Status: Former Tobacco user service: No Current occupational status: retired Cognitive needs: No Hearing needs: Yes (b/l hearing aids) Vision needs: Yes (rx glasses ) Review of Systems Const All systems reviewed & are unremarkable except as noted in HPI and below Physical Exam Const General: comfortable Nutritional Appearance: well nourished Orientation/consciousness: patient oriented x3 Limitations: no limitations HEENT Other: Mass in left face as noted below Head images: 2 1. 1.5 cm soft tissue mass over the left masseter muscle. No erythema or fluctuance noted. Nontender to palpation. 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 On examination there is indeed a palpable mass measuring approximately 1.5 cm with no evidence of infection. I reviewed the CT with the patient and recommended further evaluation by ENT. A consultation has been requested with [facility] in [place] for further evaluation. 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
[2025-03-23 13:04] VITALS: BP 154/72; PULSE 81; BMI 24.7
--- OUTSIDE RECORDS SUMMARY | 2025-03-23 13:48 | XMS_ITS | Data Portability ---
Author Organization [place] - [facility], Allergy Address [address] [address] Care Team Providers Care Pollution Control Engineer Name Role Phone RUTHIE ZAMAN Primary Care Provider Assessment Encounter Date Assessment Date Assessment LastModified by Organization Details LastModified Time 05/15/2024 05/15/2024 79 year old female presents for cerumen removal. Cerumen impaction removed bilaterally. Bilateral TMs are intact. Follow up in 6 months for routine ear cleaning. [email or web address] Not available 05/15/2024 11:23:16 10/17/2024 10/17/2024 79 year old female presents for cerumen removal. Cerumen impaction removed bilaterally. Bilateral TMs are intact. Follow up in 6 months for routine ear cleaning. [email or web address] Not available 10/17/2024 10:31:47 Plan of Treatment [...] Organization Details Recorded Time Candidal otitis externa 41258913 Active 2019 Candidal otitis externa; Note: Date Diagnosed : 03/26/2020 10:18 AM (B37.84) Not Available [facility] 4 03:17:44 Impacted cerumen of bilateral ears 50082682803 77921 Active 2019 Impacted cerumen, bilateral ; Note: Date Diagnosed : 09/16/2019 3:17 PM (H61.23) Not Available [facility] 4 03:17:45 Sensorine ural hearing loss of bilateral ears 611287836 Active 2019 Sensorine ural hearing loss, bilateral ; Note: Date Diagnosed : 09/16/2019 3:17 PM (H90.3) Not Available [facility] 4 03:17:45 Problem Notes None recorded. Procedures Surgical History Date Name Laterality Status Provider Name and Address Organization Details Recorded Time 5 Cerumen removal without microscope bilat completed DAWN LEHMAN PA-C [address] [place] [address], [phone], [facility] 10/17/2024 10:31:43 4 Cerumen removal without microscope bilat completed DAWN LEHMAN PA-C [address] [place] [address], [phone], [facility] 05/15/2024 11:22:21 Imaging Results None recorded. Procedure Notes None recorded. Medical Equipment None Reported. Allergies Allergen ID Allergen Name Allergen Category Reaction Reaction Severity Criticality Documentation Date Start Date Code Code System Note Provider Name and Address Organization Details Recorded Time 355907 penicilli n V potassium medicatio n other Not available Not available 01/22/2024 5 RxNorm React ion: unkno wn, unspe cifie d;; Not Available [facility] 4 01:25:20 Medications Name Sig Start [...] mg tablet 11/22 completed Medicati on ID: [id number] D uration Value: 90 Brand Name: atorvast [...] topical solution 2019 active Medicati on ID: [id number] D uration Value: 28 Prescri bed By [...] mg capsule 11/22 completed Medicati on ID: [id number] D uration Value: 90 Brand Name: fluoxeti ne Send Method: E-Prescr ibed Sub s Allowed: subs OK Medic ationGen ericName : fluoxeti ne Not Available Not Available Not Available metformin ER 500 mg tablet,ex tended release 24 hr 11/22 completed Medicati on ID: [id number] D uration Value: 90 Brand Name: metformi n Send Method: E-Prescr ibed Sub s Allowed: subs OK Speci al Instruct ion: TAKE 3 TABLETS BY MOUTH DAILY Me dication GenericN yvette: metformi n Not Available Not Available Not Available multivita min 11/22 completed Medicati on ID: [id number] B rand Name: multivit diaz Sen d Method: E-Prescr ibed Sub s Allowed: subs OK Medic ationGen ericName : multivit diaz Not Available Not Available Not Available Vitamin D3 50 mcg (2,000 unit) tablet 11/22 completed Medicati on ID: [id number] B rand Name: Vitamin D3 Send Method: E-Prescr ibed Sub s Allowed: subs OK Medic ationGen ericName : Vitamin D3 Not Available Not Available Not Available Zyrtec 10 mg capsule Take 1 capsule by mouth once a day as needed 11/22 completed Medicati on ID: [id number] D uration Value: 1 Brand Name: Zyrtec S end Method: E-Prescr ibed Sub s Allowed: subs OK Medic ationGen ericName : Zyrtec Not Available Not Available Not Available Basaglar KwikPen U-100 Insulin 100 unit/mL (3 mL) subcutane ous 11/22 completed Medicati on ID: [id number] D uration Value: 90 Brand Name: Basaglar [...] mg capsule 11/22 completed Medicati on ID: [id number] B rand Name: Aspir-81 Send Method: E-Prescr ibed Sub s Allowed: subs OK Medic ationGen ericName : Aspir-81 Not Available Not Available Not Available Vitals Date Recorded Body height Body mass index (BMI) Body weight Provider Name and Address Organization Details Last Updated DateTime 05/15/2024 170.18 cm 24 kg/m2 10784.63 g Shania Avalos [place] [facility] [...] SNOMED-CT Code Diagnosis ICD10 Code Diagnosis Note [id number] DAWN LEHMAN PA-C [facility] [address] [address] 05/15/2024 11:11:41 05/15/2024 11:34:21 Impacted cerumen of bilateral ears [id number] 000952 H61.23 [id number] DAWN LEHMAN PA-C [facility] [address] [address] 10/17/2024 10:28:54 10/17/2024 10:55:36 Impacted cerumen of bilateral ears 7573335365 021999 H61.23 Health Concerns Section Related Observation LastModified by Organization Detai ls LastModified Time None Recorded Concern Status LastModified by Organization Details LastModified Time None Recorded Advance Directives Directive None Recorded Payers Insurance Date Sequence Insurance Name Policy Number Policy Valle Covered Member ID Valle Member ID Guarantor Name 10/15/2024 1 [place] Shannan L Layzer [id number] Shannan L Layzer 10/15/2024 2 [place] [id number] Shannan L Layzer [id number] Shannan L Layzer Notes Date Note Type Note Provider Name and Address Organization Details Recorded Time 05/15/2024 text/html 79 year old female presents for cerumen removal. No concerns today. MIRLANDE APONTE MD [address] [place] [address], [phone], [place] [facility] 05/15/2024 16:31:26 10/17/2024 text/html 79 year old female presents for cerumen removal. No concerns today. ZINA SILVA MD [address] [place] [address], [phone], [place] [facility] 10/17/2024 12:56:20 OBGyn Episode No OBEpisode recorded.
== END 2025-03-23 13:17 | disposition home or self-care (01) ==
LOC: HO.HGS 12:50
PROVIDERS: PCP Internal Medicine; Visit Provider Surgery
DX: D49.0 Neoplasm of unspecified behavior of digestive system (principal)
CPT/HCPCS: 99204

== ENCOUNTER → 2025-03-23 12:49 | Outpatient (BNVA) | payer MEDICARE, SELFPAY | PROVIDERS: PCP Internal Medicine; Visit Provider Surgery | DX: D49.0 Neoplasm of unspecified behavior of digestive system (principal) | CPT/HCPCS: 99202 ==

== ENCOUNTER 2025-05-18 09:55 | Outpatient (AMB) | payer MEDICARE, SELFPAY ==
--- OUTSIDE RECORDS SUMMARY | 2025-05-14 11:17 | XMS_ITS | Encounter Summary ---
Author Organization [facility] Address [address] [place] [id number] Phone Care Team Providers Care Drug Worker Name Role Phone Chandan Younger DO Primary Care Provider [phone] Chandan Younger DO Unavailable Manju Rosales MD Unavailable [phone] Encounter Details Date Type Department Care Team (Latest Contact Info) Description 05/14/2025 11:17 AM EDT - 05/14/2025 11:59 PM EDT Hospital Encounter [facility] [address] [place] [address] Aidan Ross MD [address] [place] [phone] [email or web address] Discharge Disposition: Home or Self Care Social History Tobacco Use Types Packs/Day Years Used Date Smoking Tobacco: Former Smokeless Tobacco: Never Comments:quit in 1976 Alcohol Use Standard Drinks/Week Comments Yes 0 (1 standard drink = 0.6 oz pure alcohol) rare, less than 1 drink per month Education Answer Date Recorded Are you interested in more education? Not on atul e 01/05/2023 Are you concerned about learning? Not on file 01/05/2023 No 01/05/2023 No 01/05/2023 Digital Access Answer Date Recorded No 02/02/2023 No 02/02/2023 Reliable internet access at home? Not on file 02/02/2023 Device with a working camera? Not on file Comments Unknown Sex and Gender Information Value Date Recorded Sex Assigned at Not on file Legal Sex Female 11:31 AM EDT Gender Identity Not on file Sexual Orientation Not on file documented as of this encounter Medications at Time of Discharge aspirin 81 MG EC tablet 1 tablet atorvastatin (LIPITOR) 40 MG tablet 1 tablet. BD [place] 2ND GEN PEN NEEDLE 32 gauge x NdleIndications:T ype 2 diabetes mellitus with diabetic neuropathy, with long-term current use of insulin INJECT 1 EACH UNDER THE SKIN EVERY MORNING. 100 each 3 02/23/2025 cetirizine (ZYRTEC) 10 mg capsule 1 tablet cholecalciferol, vitamin D3, 1,000 unit capsule 1 capsule FLUoxetine (PROZAC) 40 MG capsule 02/27/2022 insulin glargine-lixisena tide (SOLIQUA /) 100 unit-33 mcg/mL InPnIndications:T ype 2 diabetes mellitus with diabetic neuropathy, with long-term current use of insulin Inject 25 Units under the skin daily. Inject up to 25 units once daily 15 mL 11 04/02/2025 lancets Misc DIRECTED 06/24/2014 metFORMIN (GLUCOPHAGE) 500 MG tabletIndications :Type 2 diabetes mellitus with diabetic neuropathy, with long-term current use of insulin TAKE TWO TABLETS IN THE MORNING WITH MEAL 180 tablet 3 04/02/2025 omeprazole (PRILOSEC) 20 MG capsule 02/21/2022 documented as of this encounter Plan of Treatment Upcoming Encounters Date Type Department Care Team (Late st Contact Info) Description 07/06/2025 11:20 AM EDT Office Visit [facility] [address] [place] [address] Kenyetta Miller CNP 22 [facility], [address] [place] [phone] [email or web address] documented as of this encounter Procedures Procedure Name Priority Date/Time Associated Diagnosis Comments NON-CONTRACT PROGRAMMER CYTOLOGY, NON CSF, NON URINE Routine 05/14/2025 12:00 AM EDT documented in this encounter Results * Non-Solar Engineer Cytology (05/14/2025 12:00 AM EDT) 05/14/2025 05/14/2025 11: 55 AM EDT Narrative SEE NARRATIVE - 05/15/2025 3:56 PM EDT [address] [address] Rn Transitional: Kendell Banuelos MD Non Solar Engineer Cytology Report FINAL DIAGNOSIS A. LEFT PAROTID GLAND, ULTRASOUND GUIDED FINE NEEDLE ASPIRATION: SPECIMEN ADEQUACY: Satisfactory for evaluation. INTERPRETATION: NEOPLASM: BENIGN ([place] Category Mark) DIAGNOSIS: Oncocytic neoplasm, favor Warthin tumor. Note: In this setting the risk of malignancy is 0-13%. Usual management is conservative surgery or clinical follow-up. Electronically Signed Out By: MD Andria Miranda CT(ASCP) By his/her signature above, the pathologist listed as making the Final Diagnosis certifies that he/she has personally reviewed this case and confirmed or corrected the diagnosis. CLINICAL HISTORY Patient presents with left parotid mass. SPECIMEN SOURCE A: LEFT PAROTID GLAND, ULTRASOUND GUIDED FINE NEEDLE ASPIRATION GROSS DESCRIPTION A. LEFT PAROTID GLAND, ULTRASOUND GUIDED FINE NEEDLE ASPIRATION: Received are six (6) spray fixed direct smears and a needle rinse in 30ml CytoLyt preservative labeled with patient name and date of . One (1) ThinPrep slide and one (1) cell block are prepared. Patient Name: SHANNAN HASSAN : 1945 (Age: 80) Sex: F Institution: [facility] Location: [facility] Date of Collection: 05/14/2025 Date of Reported: 05/15/2025 15:56 Results to: Aidan Ross MD, BA Ariane Baum MD us Aidan Ross MD CYTOLOGY ORDERABLES Final Resul t SEE NARRATIVE documented in this encounter Visit Diagnoses Not on filedocumented in this encounter Care Teams Drug Worker Relationship Specialty Start Date End Date Chandan Younger DO [address] [place] [id number] PCP - General Internal Medicine 06/30/16 Chandan Younger DO [address] [place] [phone] Historical LMR Provider 06/26/17 Manju Rosales MD [address] [place] [address], [address] [place] [phone] [email or web address] Historical LMR Provider 06/26/17 documented as of this encounter Additional Source Comments The information contained in this document represents components of the legal health record. It is not the complete legal health record.[facility]
[2025-05-18 09:56] VITALS: BP 164/71; PULSE 70; RESP 14; TEMP 36.8; O2SAT 99; BMI 24.1
--- NOTE | 2025-05-18 09:56 | A.OFFPC_ITS ---
Vital Signs 05/18/25 09:56 Height 5 ft 5.75 in Weight 148 lb BMI 24.1 BP 164/71 H Respiration 14 Pulse 70 Pulse Source Pulse Oximeter Temp 98.2 F Temp Source Temporal Artery Scan Pulse Oximetry (%) 99 Oxygen Delivery Method Room Air Intake Visit Reasons: Follow up Manager Application Development Required: No Accompanied by: Daughter Allergies penicillin G Allergy (Unknown, Verified 05/18/25 11:23) anaphylaxis penicillin V Allergy (Unknown, Verified 05/18/25 11:23) anaphylaxis Penicillins (PENICILLINS) Allergy (Unknown, Verified 05/18/25 11:23) ANAPHYLAXIS milk (Milk) Adverse Reaction (Intermediate, Verified 05/18/25 11:23) DIGESTIVE UPSET egg (Egg) Adverse Reaction (Mild, Verified 05/18/25 11:23) DIGESTIVE UPSET Medication List - Last Reconciled 05/18/25 by Miguelina Hernandez PA-C aspirin 81 mg PO DAILY atorvastatin 40 mg PO DAILY cetirizine (Zyrtec) 10 mg PO DAILY PRN fluoxetine 20 mg PO DAILY fluoxetine 40 mg PO DAILY hydrocortisone 2.5% 1 appl topical TID PRN insulin glargine-lixisenatide 100 unit-33 mcg/mL (Soliqua 100/33) 18 units subcut QAM metformin 500 mg PO BID 90 days omeprazole 20 mg PO DAILY Tobacco use date assessed: 05/18/25 Dental Screening Dental Screen Date: 02/06/25 HPI Follow up HPI Details The patient is a 80-year-old female presenting with follow-up for diabetes management, mental health concerns including depression and anxiety, and assistance with home care services. The patient has been experiencing increased stress and anxiety, leading to confusion. She has been under the care of a therapist for years and is currently seeing Dr. Ghosh, a psychiatrist, with an upcoming appointment later this month. A psychiatric nurse practitioner, dual certified in geriatric care, was consulted a few weeks ago, and a follow-up is scheduled for the end of May. The patient has a history of diabetes mellitus, with a recent hemoglobin A1c of 7.9%, down from 8.0% a few months ago. She is currently on metformin 500 mg twice daily and insulin glargine at bedtime. There is concern about her adherence to medication, as she is not taking her medications daily, necessitating the consideration of visiting nurse services. The patient is also dealing with depression, which is exacerbated by her inability to manage daily activities and medication adherence. This has led to discussions about additional home support services. 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 The initial biopsy was inconclusive due to contamination, and a second biopsy was conducted using ultrasound guidance. Social History - Housing: The patient requires assistan ce with daily activities and medication management, indicating a need for home health services. - Functional status: The patient is not managing her household independently and requires support for medication adherence. [facility] Medical History (Updated 05/18/25 @ 11:25 by Miguelina Hernandez PA-C) Type 2 diabetes mellitus with hemoglobin A1c goal of less than 7.0% Cognitive impairment Abnormal CT scan, neck Lump on face Depression Dry skin dermatitis History of mammogram (~05/23/24) Bilateral ankle pain Anxiety Frequent falls Dysthymia History of DVT (deep vein thrombosis) Atypical chest pain Sarcoma Anxiety disorder Penicillin-induced anaphylaxis Dupuytren contracture Ovarian cyst Uterine prolapse History of breast cancer Vitamin D deficiency Hearing loss Type 2 diabetes mellitus Hypertriglyceridemia Mild hypercholesterolemia Hypertension Surgical History History of colonoscopy (~02/07/19) Family History Father No problems noted. Mother No problems noted. Social History Housing: Condominium Alcohol intake: current Alcohol intake frequency: does not drink Patient Tobacco Use Status: Former Tobacco user service: No Current occupational status: retired Cognitive needs: No Hearing needs: Yes (b/l hearing aids) Vision needs: Yes (rx glasses ) Questionnaire PHQ-9 Over the last 2 weeks, how often have you been bothered by any of the following problems? 1. Little interest or pleasure in doing things: several days 2. Feeling down, depressed, or hopeless: nearly every day 3. Trouble falling or staying asleep, or sleeping too much: nearly every day 4. Feeling tired or having little energy: nearly every day 5. Poor appetite or overeating: not at all 6. Feeling bad about yourself - or that you are a failure or have let yourself or your family down: several days 7. Trouble concentrating on things, such as reading the newspaper or watching television: not at all 8. Moving or speaking so slowly that other people could have noticed. Or the opposite - being so fidgety or restless that you have been moving around a lot more than usual: not at all 9. Thoughts that you would be better off or of hurting yourself in some way: not at all Total score: 11 Depression Screening Interpretation: Positive Depression Screening Follow-up: Existing condition, In treatment and Follow-up Visit Requested Depression Screening Done: Yes [address]80[address] - PHQ-9 Billing: Yes Source: Developed by Drs. Chandan Holloway, Luz Farias, Obi Chapman and colleagues, with an educational jasiel from [employer]. Thrive Questionnaire Date Thrive assessed: 02/06/25 I am a: Patient What is your living situation today?: I have a steady place to live Within the past 12 months, did the food you bought not last and you didn't have the money to get more?: Never true Within the past 12 months, did you worry whether your food would run out before you got money to buy more?: Never true Do you have trouble paying for medicines?: No Do you have trouble getting transportation to medical appointments?: No Do you have trouble paying your heating and electricity bill?: No Do you have trouble taking care of your child, family member or friend?: No Do you have trouble with day-to-day activities such as bathing, preparing meals, shopping, managing finances, etc.?: No Are you currently unemployed and looking for a job?: No Are you interested in more education?: No Please select the resources that you would like help with: None THRIVE Score: 0 AUDIT C Alcohol Use Questionnaire (AUDIT-C) 1. How often do you have a drink containing alcohol?: Never 3. How often do you have six or more drinks on one occasion?: Never Total Score: 0 Score Reviewed/Action Taken: No IRENE-7 AMB Questionnaire IRENE-7 Date IRENE - 7 assessed: 02/06/25 Feeling nervous, anxious, or on edge: 3 = Nearly every day Not being able to stop or control worryin = Several days Worrying too much about different things: 1 = Several days Trouble relaxin = Not at all Being so restless that it is hard to sit still: 0 = Not at all Becoming easily annoyed or irritable: 1 = Several days Feeling afraid as if something awful might happen: 1 = Several days Total IRENE-7 score (0-4 normal; 5-9 mild; 10-14 moderate; 15-21 severe): 7 Source: Developed by Drs. Chandan Holloway, Luz Farias, Obi Chapman and colleagues, with an educational jasiel from [employer]. IRENE-7 Assessment Billing IRENE-7 Assessment Tool: IRENE-7 Assessment 01492 Review of Systems Const Details: - Neurological: Reports confusion and increased anxiety. - Endocrine: Reports diabetes management issues, including medication adherence. - Psychiatric: Reports depression and anxiety. All systems reviewed & are unremarkable except as noted in HPI and below Physical exam (Primary Care) Vital Signs: Last Vital Signs Temp 98.2 F 05/18/25 09:56 Pulse 70 05/18/25 09:56 Resp 14 05/18/25 09:56 BP 164/71 H 05/18/25 09:56 Pulse Ox 99 05/18/25 09:56 Oxygen Delivery Method Room Air 05/18/25 09:56 BMI result Body Mass Index 24.1 Tobacco/Smoking Status: Tobacco use Status Tobacco use date assessed 05/18/25 05/18/25 10:03 Patient Tobacco Use Status Former Tobacco user 05/18/25 10:03 PHQ-9: PHQ-9 Score PHQ-9: Total score 11 05/18/25 10:24 Depression Screening Interpretation: Positive Depression Screening Follow-up: Existing condition, In treatment and Follow-up Visit Requested Thrive Assessment: Date of Thrive Assessment Date Thrive assessed 02/06/25 05/18/25 10:03 Const Other: Appearance: Alert. Oriented X3. No acute distress. Head: Normal external exam. Normocephalic. Atraumatic. Eyes: Pupils are equal, round, and reactive to light. Extraocular movements intact. Conjunctiva and sclera normal. Eyelids normal. Ears: External auditory canal normal. Tympanic membranes normal. Throat: Pharynx normal. Uvula midline. Moist mucous membranes. Neck: Normal inspection. Neck supple. Full range of motion. Cardiovascular: Normal heart rate and rhythm. Heart sound normal. No murmurs noted. Pulses normal throughout. Respiratory: No respiratory distress. Painless inspiration. Breath sounds normal. No wheezes/rales/rhonchi noted. Chest nontender. No accessory muscle usage noted or decreased air movement noted. Abdomen: Soft and nontender. No distention noted. No organomegaly noted. Back: No costovertebral angle tenderness. Full range of motion noted. Skin: Skin warm and dry. Normal skin color. Normal skin turgor. No rashes/lesions/lacerations noted. Extremities: No lower extremity edema. Extremities exhibit normal range of motion. Neuro: Oriented X 3. No motor deficit. No sensory deficit. Reflexes normal. No recent falls. Not using a walker or cane. Results AMB Hemoglobin A1c AMB Hemoglobin A1c 7.9 % Last Edit by BAYLEE Allen on 05/18/25 10:25 Results Reviewed Results Reviewed: Laboratory Last Values Hgb A1c (Clinic) 7.9 % (4.0-6.0) H 05/18/25 10:20 - Labs: Hemoglobin A1c 7.9%, previously 8.0%. - Diagnostics: Biopsy of Warthin's tumor, initial results inconclusive, second biopsy conducted with ultrasound guidance. Coding Level of Care Code Est Pt Level 4 (82502) Complex EM visit Add On G2211 Diagnoses Cognitive impairment R41.89 Type 2 diabetes mellitus with hemoglobin A1c goal of less than 7.0% E11.9 Depression F32.A Anxiety F41.[address] scan, neck R93.89 Additional Codes IRENE-7 Assessment Billing - IRENE-7 Assessment Tool: IRENE-7 Assessment 22282 ([id number]) PHQ-9 - 82636 - PHQ-9 Billing: Yes ([id number]) Assessment & Plan Assessment & Plan (1) Cognitive impairment: Code(s): R41.89 - Other symptoms and signs involving cognitive functions and awareness Category: Medical Plan: The patient will continue to follow up with her psychiatrist, Dr. Ghosh, and has an appointment scheduled later this month. A psychiatric nurse practitioner has been consulted, and a follow-up is planned for the end of May. Home health services, including a visiting nurse and home health aid, are being arranged to assist with medication adherence and daily activities. (2) Type 2 diabetes mellitus with hemoglobin A1c goal of less than 7.0%: Code(s): E11.9 - Type 2 diabetes mellitus without complications Category: Medical Plan: The patient's diabetes management includes metformin 500 mg twice daily and insulin glargine at bedtime. Her hemoglobin A1c is currently 7.9%, down from 8.0%. A visiting nurse will be arranged to assist with medication adherence. The patient is scheduled to see her shopper's aide in June for further dario gement. (3) Depression: Code(s): F32.A - Depression, unspecified Category: Medical Plan: The patient's depression is being managed with the assistance of a psychiatric nurse practitioner and therapist. Home health services are being arranged to sup port her in managing daily activities and medication adherence, which are contributing to her depressive symptoms. (4) Anxiety: Code(s): F41.9 - Anxiety disorder, unspecified Category: Medical Plan: The patient's anxiety is being addressed through therapy and psychiatric care. A psychiatric nurse practitioner has been consulted, and home health services are being arranged to provide additional support. 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 A second biopsy was conducted using ultrasound guidance, and results are pending. Follow-up will be based on the biopsy results. Plan Plan Patient was informed and verbally consented to the use of an ambient scribe for clinic note documentation during this visit. 1. Mild Cognitive Disorder The patient will continue to follow up with her psychiatrist, Dr. Ghosh, and has an appointment scheduled later this month. A psychiatric nurse practitioner has been consulted, and a follow-up is planned for the end of May. Home health services, including a visiting nurse and home health aid, are being arranged to assist with medication adherence and daily activities. 2. Diabetes Mellitus The patient's diabetes management includes metformin 500 mg twice daily and i nsulin glargine at bedtime. Her hemoglobin A1c is currently 7.9%, down from 8.0%. A visiting nurse will be arranged to assist with medication adherence. The patient is scheduled to see her shopper's aide in June for further management. 3. Depression The patient's depression is being managed with the assistance of a psychiatric nurse practitioner and therapist. Home health services are being arranged to support her in managing daily activities and medication adherence, which are contributing to her depressive symptoms. 4. Anxiety The patient's anxiety is being addressed through therapy and psychiatric care. A psychiatric nurse practitioner has been consulted, and home health services are being arranged to provide additional support. 5. 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 A second biopsy was conducted using ultrasound guidance, and results are pending. Follow-up will be based on the biopsy results. During the visit, we discussed the management of the patient's diabetes, including the current medication regimen and the importance of medication adherence. We also addressed her mental health concerns, including depression and anxiety, and the need for additional home support services. The patient was informed about the pending biopsy results for the Warthin's tumor and the plan for follow-up based on those results. We also discussed the potential benefits of visiting nurse services and home health aid to assist with daily activities and medication management. Orders: Orders AMB Hemoglobin A1c Today E11.9 - Type 2 diabetes mellitus without complications Referrals Visiting Nurse Association/Hospice Referral R41.89 - Other symptoms and signs involving cognitive functions and awareness Patient Instructions: - Continue taking metformin and insulin as prescribed. - Attend upcoming appointments with the psychiatrist and shopper's aide. - Expect contact from home health services for assistance with daily activities and medication management. - Await biopsy results and follow up as advised.
--- OUTSIDE RECORDS SUMMARY | 2025-05-18 11:33 | XMS_ITS | Clinical Summary ---
Author Organization [facility] Address [address] [place] [id number] Phone Care Team Providers Care Fence Installer Name Role Phone Chandan Younger DO Primary Care Provider Chandan Younger DO Unavailable [phone] Manju Rosales MD Unavailable [phone] Allergies Active Allergy Reactions Criticality Noted Date Comments Insulin Detemir Rash Low 09/27/2017 Injection site reaction Penicillin G Benzathine Anaphylaxis High 09/27/2017 Penicillins 03/31/2019 Medications aspirin 81 MG EC tablet 1 tablet Active lancets Misc DIRECTED 06/24/2014 Acti ve cholecalciferol , vitamin D3, 1,000 unit capsule 1 capsule Active cetirizine (ZYRTEC) 10 mg capsule 1 tablet Active FLUoxetine (PROZAC) 40 MG capsule 02/27/2022 Active omeprazole (PRILOSEC) 20 MG capsule 02/21/2022 Active atorvastatin (LIPITOR) 40 MG tablet 1 tablet. Active BD [place] 2ND GEN PEN NEEDLE 32 gauge x 5/32 NdleIndications :Type 2 diabetes mellitus with diabetic neuropathy, with long-term current use of insulin INJECT 1 EACH UNDER THE SKIN EVERY MORNING. 100 each 3 02/23/2025 Active metFORMIN (GLUCOPHAGE) 500 MG tabletIndicatio ns:Type 2 diabetes mellitus with diabetic neuropathy, with long-term current use of insulin TAKE TWO TABLETS IN THE MORNING WITH MEAL 180 tablet 3 04/02/2025 Active insulin glargine-lixise natide (SOLIQUA 100/33) 100 unit-33 mcg/mL InPnIndications :Type 2 diabetes mellitus with diabetic neuropathy, with long-term current use of insulin Inject 25 Units under the skin daily. Inject up to 25 units once daily 15 mL 11 04/02/2025 Active Active Problems Problem Noted Date Diagnosed Date Hypercholesterolemia 08/16/2020 Assessment & Plan (05/27/2024 3:44 PM EDT): Continues on moderate intensity statin therapy No recent lipid data available for review LDL goal is <100, ideally <70 Assessment & Plan (11/27/2023 1:37 PM EDT): Continues on moderate intensity statin therapy No recent lipid data available for review LDL goal is <100, ideally <70 Assessment & Plan (08/29/2023 10:22 AM EST): Continues on moderate intensity statin therapy No recent lipid data available for review LDL goal is <100, ideally <70 Assessment & Plan (02/23/2023 8:31 AM EDT): Continues on moderate intensity statin therapy No recent lipid data available for review LDL goal is <100, ideally <70 Assessment & Plan (08/24/2022 1:58 PM EST): Continues on moderate intensity statin therapy No recent lipid data available for review LDL goal is <100, ideally <70 Assessment & Plan (06/15/2022 5:29 PM EDT): Continues on moderate intensity statin therapy No recent lipid data available for review LDL goal is <100, ideally <70 Assessment & Plan (02/28/2022 1:32 PM EDT): Continues on moderate intensity statin therapy No recent lipid data available for review LDL goal is <100, ideally <70 Assessment & Plan (08/29/2021 5:59 PM EST): Continues on moderate intensity statin therapy No recent lipid data available for review LDL goal is <100, ideally <70 Assessment & Plan (02/25/2021 12:14 PM EDT): Continues on moderate intensity statin therapy No recent lipid data available for review LDL goal is <100, ideally <70 Assessment & Plan (08/16/2020 12:54 PM EST): Continues on moderate intensity statin therapy No recent lipid data available for review LDL goal is <100 Hypertension 08/16/2020 Assessment & Plan (05/27/2024 3:43 PM EDT): Blood pressure remains in excellent range No longer on ACEi therapy Assessment & Plan (11/27/2023 1:37 PM EDT): Blood pressure remains in excellent range No longer on ACEi therapy Assessment & Plan (08/29/2023 10:21 AM EST): Blood pressure remains in excellent range No longer on ACEi therapy Assessment & Plan (02/23/2023 8:29 AM EDT): Blood pressure remains in excellent range No longer on ACEi therapy Assessment & Plan (08/24/2022 1:57 PM EST): Blood pressure remains in excellent range No longer on ACEi therapy Assessment & Plan (06/15/2022 5:29 PM EDT): Blood pressure remains in excellent range No longer on ACEi therapy Assessment & Plan (02/28/2022 1:31 PM EDT): Blood pressure remains in excellent range No longer on ACEi therapy Assessment & Plan (08/29/2021 6:00 PM EST): Blood pressure remains in excellent range No longer on ACEi therapy Assessment & Plan (02/25/2021 12:13 PM EDT): Blood pressure remains in excellent range Reports that she is no longer on ACEi Assessment & Plan (08/16/2020 12:53 PM EST): Excellent blood pressure control today Continues on ACEi Type 2 diabetes mellitus with diabetic neuropath y 09/26/2017 Overview (09/27/2017): DIABETES HISTORY Diagnosis - type 2 diabetes, dx 2004, found on labs as pre-diabetic Treatment history - started with lifestyle with pre-diabetes, didn't follow the advice. Then metformin. Insulin approx 2010 Assessment & Plan (04/02/2025 3:00 PM EDT): - Her A1c level is currently at 8%, history of hypoglycemia, last A1c was 5.7% - She has been advised to continue her current regimen of Soliqua 18 units daily and metformin 1000 mg daily. An order for Augusta 3+ will be placed through [facility]. She is instructed to inform us if she encounters any issues with this. I will check in on her blood sugar levels in 2 weeks, at which point we will contact her to discuss any necessary adjustments. -She is unable to open the Augusta 2 due to dexterity issues, she was able to successfully open the Augusta 3 plus without issue during our visit - Prescriptions for Soliqua and metformin have been renewed and sent to the pharmacy. Follow-up: A follow-up visit is scheduled in 3 months. Orders: metFORMIN (GLUCOPHAGE) 500 MG tablet; TAKE TWO TABLETS IN THE MORNING WITH MEAL insulin glargine-lixisenatide (SOLIQUA 100/33) 100 unit-33 mcg/mL InPn; Inject 25 Units under the skin daily. 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, so important to avoid hypoglycemia and reduce risk as much as possible which is further reason that a bit looser control is reasonable, goal TIR >50%, A1c 7-8% Destinee continues to benefit from CGM with alarm capability given hypoglycemia unawareness, would like to upgrade to Augusta 3, will need updated office note for this No adjustments made to Soliqua dose today, though she is encouraged to decrease dose if she plans to make dietary changes as these changes have brought BG too low in the past Continues on metformin 1000 mg daily, advised continuning to hold evening dose We discussed that Destinee is doing a great job at diabetes self-management Destinee is encouraged to reach out to me with any questions or concerns. Destinee will meet with Naomi Ruvalcaba in 3 months, we will meet again in 6 months, but is encouraged to reach out in the interim with any questions or concerns. 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 Destinee is willing to try this and a sample was provided and started today, training provided. She is encouraged to reach out to her supplier to request an upgrade if she prefers to use the 3 over the 2, but currently has at least 2 months left of current supply We discussed that Destinee is doing a great job at diabetes self-management Destinee is encouraged to reach out to me with any questions or concerns. Destinee will meet with Naomi Ruvalcaba in 3 months, we will meet again in 6 months, but is encouraged to reach out in the interim with any questions or concerns. 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 Destinee is willing to try this and a sample was provided today. She is encouraged to reach out to her supplier to request an upgrade if she prefers to use the 3 over the 2 We discussed that Destinee is doing a great job at diabetes self-management and to have dusty with herself during this harder season Destinee is encouraged to reach out to me with any questions or concerns. We will follow up in November and Destinee will meet with Aditi in February, but is encouraged to reach out in the interim with any questions or concerns. 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 However, we did review self-titration practices which Destinee feels comfortable doing, though she is encouraged to reach out with any questions or concerns regarding this Continues on metformin 1000 mg daily Destinee is encouraged to reach out to me with any questions or concerns. She has a follow up in place with Aditi in May and will return to see me in August, but is encouraged to reach out in the interim with any questions or concerns. 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 She has a follow up in place with Dr. 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 though she has been aware in recent past of symptoms of low blood sugar due to a delayed meal, she would benefit from a CGM personal for safety and proactive management of hypoglycemia Advised to keep meal times consistent, Destinee has been doing well with this despite recent issues with depressive symptoms, this has caused some change in lifestyle habits due to lack of motivation, she is receiving therapy for this now and has also followed up with her PCP for med adjustment Destinee is advised that a CGM pro evaluation can be done periodically to evaluate her control, she is encouraged to let us know between visits if she is interested in this and we will continue to offer this at our regular follow up visits as well Destinee is encouraged to reach out to me with any questions or cocnerns, we will meet again in 6 months Assessment & Plan (08/29/2021 5:59 PM EST): Shannan has hypoglycemia unawareness so we discussed a repeat CGM pro evaluation to assess her patterns, she has not been self monitoring blood sugars in recent past, we will follow up with recommendations once data is available Continues on Soliqua, this was reduced based on CGM pro eval one year ago Encouraged to continue healthy eating and to try to stay active Encouraged to contact me with any questions or concerns CGM Trial Type of Diabetes: Diabetes mellitus Type 2 Procedures: Glucose Monitoring: Type of Sensor: Dexcom G6 Instruction: Patient Instructed on:, Calibrations, When to test BS, Troubleshooting, What to expect with the sensor, Patient instructed to remove sensor if redness, pain or bleeding occurs. . Insertion Site Selected: abdomen Site Prep: Insertion site wiped with alcohol. Insertion: completed, area looks good, no redness, no bleeding. Plan: Procedure Codes: 78055 Glucose monitoring, cont Assessment & Plan (02/25/2021 12:35 PM EDT): Available blood sugar patterns are in good range Shannan has hypoglycemia unawareness so we discussed a repeat CGM pro evaluation to assess her patterns She has been on a 20% lower dose of Soliqua since her last CGM trial in August Encouraged to continue healthy eating and to try to be more active Encouraged to contact me with any questions or concerns CGM Trial Type of Diabetes: Diabetes mellitus Type 2 Procedures: Glucose Monitoring: Type of Sensor: Augusta Pro, Instruction: Patient Instructed on:, Calibrations, When to test BS, Troubleshooting, What to expect with the sensor, Patient instructed to remove sensor if redness, pain or bleeding occurs. . Insertion Site Selected: arms, rights Site Prep: Insertion site wiped with alcohol. Insertion: completed, area looks good, no redness, no bleeding. Plan: Procedure Codes: 25653 Glucose monitoring, cont Assessment & Plan (08/31/2020 11:51 AM EST): CGM pro reviewed and discussed with Shannan Based on high frequency of hypoglycemia we discussed lowering current dose of Soliqua from 30 units daily to 24 untis daily starting tomorrow Shannan has hypoglycemia unawareness and would likely benefit from personal CGM Will continue current dose of Metformin We will contact Shannan next week to discussed blood sugar patterns, she is encouraged to self monitor blood sugars on waking (fasting) and once more later in the day (prior to lunch, dinner or bedtime), we will adjust Soliqua dosing as needed Encouraged to reach out to me with any questions or concerns Assessment & Plan (08/16/2020 12:57 PM EST): Glucose control appears to be very good on Soliqua which Shannan is tolerating very well Shannan has had an 8lb weight loss since our last visit in April We discussed CGM trial as a good way to evaluate glucose patterns particularly given Shannan's episode of hypoglycemia and also her much lower A1c Encouraged to continue to be active physically as she has been and to continue her efforts at healthy eating We will follow up in 2 weeks to review CGM data Shannan is encouraged to contact me with any questions or concerns CGM Trial Type of Diabetes: Diabetes mellitus Type 2 Procedures: Glucose Monitoring: Type of Sensor: Augusta Pro, Instruction: Patient Instructed on:, Calibrations, When to test BS, Troubleshooting, What to expect with the sensor, Patient instructed to remove sensor if redness, pain or bleeding occurs. . Insertion Site Selected: arms, Site Prep: Insertion site wiped with alcohol. Insertion: completed, area looks good, no redness, no bleeding. Plan: Procedure Codes: 01854 Glucose monitoring, cont Assessment & Plan (04/16/2020 12:34 PM EDT): Glucose control has worsened largely due to dietary changes in the past few months, prandial blood sugars are consistently elevated particularly late in the day which is due to evening snacking, FPG on current basal insulin dose are in reasonable range We discussed likely benefits from GLP1ra therapy and a reasonable change to Soliqua which is a basal insulin + GLP1ra therapy in a once daily injection We discussed the mechanism of action of GLP1ra, common side effects and the usual starting dose of this medication which will initially be a lower insulin dosage than Destinee is currently taking, any increase in glucose in the initial period due to a suboptimal dose will be addressed by making ajdustments as needed We will be in touch with Destinee next week to see how she is doing, she will return to meet with Aditi Livingston in one month and we will meet again in 4 months; Destinee is encouraged to call us with any questions Assessment & Plan (10/17/2019 1:31 PM EST): Continues to do very well in spite of recent challenges related to 's recent We discussed gently transitioning to a healthy routine which will include getting used to prepping meals for one and settling into a routine which includes being more active We discussed a meeting with our RD who may be able to help Shannan with strategies to prepare healthier meals when cooking for one, Shannan is very interested in this and will return to meet with Aditi Livingston Will continue her current dose of insulin for now A1c is slightly worsened compared to last summer, this is quite easily explained by changes in lifestyle over past 2 months, Shannan is reassured that her control per today's A1c is still in good range Encouraged to call with any questions or concerns Assessment & Plan (03/31/2019 11:23 AM EDT): In general doing well but lifestyle has slipped a bit mostly with respect to activity We discussed the benefits of resuming walking regularly, is advised to monitor blood sugars closely and decrease her insulin back to her usual dose to avoid hypoglycemia Advised to call with any questions or concerns Assessment & Plan (09/26/2018 12:54 PM EST): Will continue her current Basaglar dosage and Metformin Strongly advised to optimize lifestyle with more consistent activity and portion control at meals Encouraged to call with any questions or concerns Assessment & Plan (03/28/2018 1:17 PM EDT): Encouraged to check blood sugars more regularly during the day to assess patterns Strongly advised to return to more regular activity as this will help with blood sugar management Encouraged to do her best with food choices, portions We did not adjust Basaglar dosage today since FPG is in desirable range Encouraged to call with any questions or concerns Assessment & Plan (09/27/2017 3:36 PM EST): Excellent glycemic control though tendency for postprandial hyperglycemia after evening meal Advised to consider lower carb and/or increased activity in the afternoon/evening to help stabilize blood sugars later in the day We did not make any changes in insulin dosing today Insurance will not be covering Smooth anymore, we discussed likely preferred agents including [employer]res[employer] which will be the recommended one for her as long as she tolerates it Encounters Date Type Department Care Team Description 05/14/2025 11:17 AM EDT - 05/14/2025 11:59 PM EDT Hospital Encounter [facility] [address] [place] [address] Aidan Ross MD Discharge Disposition: Home or Self Care 04/17/2025 Telephone [facility] [address] [place] [address] Kenyetta Miller CNP Follow-up 04/02/2025 1:50 PM EDT Office Visit [facility] [address] [place] [address] Kenyetta Miller CNP Type 2 diabetes mellitus with diabetic neuropathy, with long-term current use of insulin 02/22/2025 Refill [facility] [address] [place] [address] Manju Rosales MD Medication Refill from Last 3 Months Immunizations Immunization Administration Dates Next Due COVID-19 (Pre-07/02) Moderna Vaccine, mRNA, PF 0 12/07/2020,11/09/2020 Influenza Quadrivalent w/ Preservative IM 2019,06/26/2018 Family History Medical History Relation Comments Stroke Father 2 Hypertension Son 2 Relation Status Comments Father 1 Father 2 Son 1 Son 2 Social History Tobacco Use Types Packs/Day Years Used Date Smoking Tobacco: Former Smokeless Tobacco: Never Tobacco Cessation:Counseling Given: Not Answered Comments:quit in 1976 Alcohol Use Standard Drinks/Week [...] on file Sexual Orientation Not on file Last Filed Vital Signs Vital Sign Reading Time Taken Comments Blood Pressure 116/62 04/02/2025 2:03 PM EDT Pulse 72 04/02/2025 2:03 PM EDT Temperature 36.4 C (97.5 F) 05/27/2024 1:06 PM EDT Respiratory Rate 18 07/13/2016 10:2 0 AM EDT Oxygen Saturation 98% 04/02/2025 2:03 PM EDT Inhaled Oxygen Concentration - - Weight 68.9 kg (151 lb 12.8 oz) 04/02/2025 2:03 PM EDT Height 170.2 cm (5' 7.01 ) 04/02/2025 2:03 PM ED T Body Mass Index 23.77 04/02/2025 2:03 PM EDT Plan of Treatment Upcoming Encounters Date Type Department Care Team (Late st Contact Info) Description 07/06/2025 11:20 AM EDT Office Visit [facility] [address] [place] [address] Kenyetta Miller CNP [address] [facility] [place] [address] Health Maintenance Due Date Last Done Comments Adult Td,Tdap Booster 1945 DEPRESSION SCREENING 1958 SMOKING Hx and SMOKELESS TOBACCO SCREENING 1959 HEPATITIS C SCREENING 02/16/1964 PNEUMOCOCCAL VACCINES (50+ years) (1 of 2 - PCV) 1965 ZOSTER VACCINES (1 of 2) 02/16/1996 OSTEOPOROSIS SCREENING INITIAL (ONE-TIME) 2011 URINE MICROALBUMIN/CREATININE RATIO 10/08/2018 10/08/2017, 10/08/2017 RSV VACCINE (1 - 1-dose 75+ series) 2021 DIABETIC EYE EXAM 08/02/2022 08/02/2021, 06/16/2019 CREATININE LEVEL 11/08/2022 11/08/2021, 04/2021, 11/14/2019, Additional history exists HEMOGLOBIN A1C 11/24/2024 05/27/2024, 02/08, 02/25/2024, Additional history exists INFLUENZA VACCINE (#1) 2025 , 06/20/2023, 07/18/2022, Additional history exists COVID-19 VACCINE ( season) 2025 07/10/2024, 09/06/2021, 12/07/2020, Additional history exists BLOOD PRESSURE 10/03/2025 04/02/2025 HEPATITIS A VACCINES Aged Out No long er eligible based on patient's age to complete this topic HIB VACCINES Aged Out No longer eligi ble based on patient's age to complete this topic MENINGOCOCCAL VACCINES (ACWY) Aged Out No longer eligible based on patient's age to complete this topic MENINGOCOCCAL VACCINES (B) Aged Out N o longer eligible based on patient's age to complete this topic Medical Devices Not on file Procedures Procedure Name Priority Date/Time Associated Diagnosis Comments NON-CHARTER COACH DRIVER CYTOLOGY, NON CSF, NON URINE Routine 05/14/2025 12:00 AM EDT POCT HEMOGLOBIN A1C Routine 05/27/2024 1 :13 PM EDT Type 2 diabetes mellitus with diabetic neuropathy HM DIABETES EYE EXAM FOR RESULT ENTRY ONLY Routine 06/16/2019 from Last 3 Months or Most Recently Relevant to Health Maintenance Results * Non-Receiver/Laborer Cytology (05/14/2025 12:00 AM EDT) 05/14/2025 05/14/2025 11: 55 AM EDT Narrative SEE NARRATIVE - 05/15/2025 3:56 PM EDT [address] [address] Cooker Chip: Kendell Banuelos MD Non Receiver/Laborer Cytology Report FINAL DIAGNOSIS A. LEFT PAROTID GLAND, ULTRASOUND GUIDED FINE NEEDLE ASPIRATION: SPECIMEN ADEQUACY: Satisfactory for evaluation. INTERPRETATION: NEOPLASM: BENIGN ([place] Category Mark) DIAGNOSIS: Oncocytic neoplasm, favor Warthin tumor. Note: In this setting the risk of malignancy is 0-13%. Usual management is conservative surgery or clinical follow-up. Electronically Signed Out By: MD Andria Miranda CT([facility]) By his/her signature above, the pathologist listed [...] : 1945 (Age: 80) Sex: F Institution: [facility] Location: [facility] Date of Collection: 05/14/2025 Date of Reported: 05/15/2025 15:56 Results to: Aidan Ross MD, BA Ariane Baum MD us Aidan Ross MD CYTOLOGY ORDERABLES Final Resul t SEE NARRATIVE * POCT Hemoglobin A1c (05/27/2024 1:13 PM EDT) Hemoglobin A1c 5.7 4.2 - 5.8 % [facility] Other 05/27/2024 1:13 PM EDT us Kenyetta Miller CNP POINT OF CARE TEST ORDERABLES Final Result Performing Organization Address City/State/[facility] Co de Phone Number [facility] [address] [place] [address], [facility] * DIABETES EYE EXAM FOR RESULT ENTRY ONLY (06/16/2019) EYE EXAM [facility] Historical Provider MD HEALTH MAINTENANCE Final Result from Last 3 Months or Most Recently Relevant to Health Maintenance Insurance MEDICARE PART A & B AIM MEDEX SUPPLEMENT MEDICARE PART A & B [employer] CROSS MEDEX SUPPLEMENT MEDICARE PART A & B AIM MEDEX SUPPLEMENT MEDICARE PART A & B Member Subscriber Plan / Payer ( fective 2011-Present) Name:Shannan Hassan Member ID:[id number] Relation to Subscriber:Self Name:Shannan Hassan Subscriber ID:[id number] Payer ID:[id number] Group ID:Not on file Type:Medicare Address: [facility] [employer] [facility] [address] [place] [phone] [employer] CROSS MEDEX SUPPLEMENT MEDICARE PART A & B AIM MEDEX SUPPLEMENT MEDICARE PART A & B AIM MEDEX SUPPLEMENT MEDICARE PART A & B [employer] CROSS MEDEX SUPPLEMENT Member Subscriber Plan / Payer ( fective 2011-Present) Name:Shannan Hassan Relation to Subscriber:Self Name:Shannan Hassan Payer ID:[id number] (NAIC) Type:Indemnity Address: [place] [phone] AIM MEDEX SUPPLEMENT MEDICARE PART A & B AIM MEDEX SUPPLEMENT Care Teams Fence Installer Relationship Specialty Start Date End Date Chandan Younger DO [address] [place] [address] PCP - General Internal Medicine 06/30/16 Chandan Younger DO [address] [place] [address] Historical LMR Provider 06/26/17 Manju Rosales MD [address] [place] [address], [address] [place] [address] [email or web address] Historical LMR Provider 06/26/17 Additional Source Comments The information contained in this document represents components of the legal health record. It is not the complete legal health record.[facility]
--- OUTSIDE RECORDS SUMMARY | 2025-05-18 11:33 | XMS_ITS | Encounter Summary ---
Author Organization [facility] Address [address] [place] [address] Phone Care Team Providers Care Returned Materials Inspector Name Role Phone Chandan Younger DO Primary Care Provider Naomi Durán MANAGER FINANCIAL Unavailable Unavailable Flakita Mckeon NP Unavailable [phone] Chandan Younger DO Unavailable [phone] Manju Rosales MD Unavailable [phone] Encounter Details Date Type Department Care Team (Late st Contact Info) Description 07/13/2016 Procedure Pass [facility] [address] [place] [address] Social History Tobacco Use Types Packs/Day Years Used Date Smoking Tobacco: Never Assessed Comments Unknown Sex and Gender Information Value Date Recorded Sex Assigned at Not on file Legal Sex Female 11:31 AM EDT Gender Identity Not on file Sexual Orientation Not on file documented as of this encounter Plan of Treatment Upcoming Encounters Date Type Department Care Team (Late st Contact Info) Description 07/06/2025 11:20 AM EDT Office Visit [facility] [address] [place] [address] Kenyetta Miller CNP [address] [facility], 1st [place] [address] documented as of this encounter Visit Diagnoses Not on filedocumented in this encounter Care Teams Returned Materials Inspector Relationship Specialty Start Date End Date Chandan Younger DO [address] [place] [address] PCP - General Internal Medicine 06/30/16 Naomi Durán NP [address] [place] [address] Historical LMR Provider 06/26/1709/17 Flakita Mckeon NP [address] [place] [address] Historical LMR Provider 06/26/17 Chandan Younger DO [address] [place] [address] Historical LMR Provider 06/26/17 Manju Rosales MD [address] [place] [address], 1st [place] [address] Historical LMR Provider 06/26/17 documented as of this encounter Additional Source Comments The information contained in this document represents components of the legal health record. It is not the complete legal health record.[facility]
--- OUTSIDE RECORDS SUMMARY | 2025-05-18 11:33 | XMS_ITS | Encounter Summary ---
Author Organization [facility] Address [address] [place] [address] Phone Care Team Providers Care Learning And Development Associate Name Role Phone Chandan Younger DO Primary Care Provider Chandan Younger DO Unavailable [phone] Manju Rosales MD Unavailable [phone] Reason for Visit * Reason Onset Date Comments Follow-up 04/17/2025 Encounter Details Date Type Department Care Team (Late st Contact Info) Description 04/17/2025 Telephone [facility] [address] [place] [address] Kenyetta Miller, YEHUDA 22 [facility], 1st [place] [address] [email or web address] Follow-up Social History Tobacco Use Types Packs/Day Years [...] on file documented as of this encounter Progress Notes * Melida Miller CMA - 04/30/2025 11:14 AM EDT I called and spoke to pt she stated that she do not know who her Dme company is use check chart last paper work from [facility] I called [facility] they stated that they have a new provider for the the pt Fransico Albarado since 03/12/25 they asked when was the last time she was seen by the office? I informed them that pt was last seen 04/02/25 and have a follow up in jun . 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 * Cee Dickey RN - 04/29/2025 1:55 PM EDT I was able to speak with patient, she says she is doing well. Denies any issues she wants to talk to nurse about with her sugars. She says she wasn't able to get the [place] 3 through [employer], and shedoesn't remember where that left off. She is still interested in [place] 3, so if someone can assist her in getting this, would be great. Will forward to [facility] to look into paracte. FYI to Kenyetta, to let her know I status checked pt. * Cee Dickey RN - 04/24/2025 3:59 PM EDT Call placed to patient, no answer, left message to return call to nurse. * Kenyetta Miller CNP - 04/17/2025 10:14 AM EDT Can someone check in on Destinee and see how she is doing? (She preferred phone call rather than PG message) I checked the [place] data and it looks much improved compared to last visit. Can we see if she was able to get the [place] 3 through [employer]? And if not, can we have one of the medical assistants place [facility] [facility]? Thank you!! documented in this encounter Plan of Treatment Upcoming Encounters Date Type Department Care Team (Late st Contact Info) Description 07/06/2025 11:20 AM EDT Office Visit [facility] [address] [place] [address] Kenyetta Miller CNP [address] [place] [address] [email or web address] documented as of this encounter Visit Diagnoses Not on filedocumented in this encounter Care Teams Learning And Development Associate Relationship Specialty Start Date End Date Chandan Younger DO [address] [place] [address] PCP - General Internal Medicine 06/30/16 Chandan Younger DO [address] [place] [address] Historical LMR Provider 06/26/17 Manju Rosales MD [address] [place] [address] [email or web address] Historical LMR Provider 06/26/17 documented as of this encounter Additional Source Comments The information contained in this document represents components of the legal health record. It is not the complete legal health record.[facility]
== END 2025-05-18 10:31 | disposition home or self-care (01) ==
LOC: HO.HMCSH 09:55
PROVIDERS: PCP Internal Medicine; Visit Provider Physician Assistant Medical
DX: R41.89 Other symptoms and signs involving cognitive functions and awareness (principal); E11.9 Type 2 diabetes mellitus without complications; F32.A Depression, unspecified; F41.9 Anxiety disorder, unspecified; R93.89 Abnormal findings on diagnostic imaging of other specified body structures

== ENCOUNTER → 2025-05-18 09:55 | Outpatient (BNVA) | payer MEDICARE, SELFPAY | PROVIDERS: PCP Internal Medicine; Visit Provider Physician Assistant Medical | DX: E11.9 Type 2 diabetes mellitus without complications (principal); F32.A Depression, unspecified; F41.9 Anxiety disorder, unspecified; R41.89 Other symptoms and signs involving cognitive functions and awareness; R93.89 Abnormal findings on diagnostic imaging of other specified body structures; D11.9 Benign neoplasm of major salivary gland, unspecified | CPT/HCPCS: 83036; 96127; 99212 ==

== ENCOUNTER 2025-06-08 09:01 | Outpatient (REF) | payer MEDICARE, SELFPAY ==
[2025-06-16 00:39] LABS: ABETA 42/40 Ratio 0.169 (> OR = 0.170); Alzeheimer's Interpretation Low Likelihood; Tau protein phosphorylated 217 0.23 pg/mL (< OR = 0.15)
== END 2025-06-08 09:02 | disposition home or self-care (01) ==
LOC: HO.LAB 09:01
PROVIDERS: PCP Internal Medicine; Visit Provider Psychiatry & Neurology Neurology
DX: G31.84 Mild cognitive impairment of uncertain or unknown etiology (principal)
CPT/HCPCS: 36415; 82233; 82234; 84393; 99212

== ENCOUNTER 2025-06-08 09:01 | Outpatient (AMB) | payer MEDICARE, SELFPAY ==
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
--- OUTSIDE RECORDS SUMMARY | 2025-06-08 09:35 | XMS_ITS | Encounter Summary ---
Author Organization [facility] Address [address] [place] [address] Phone Care Team Providers Care Room Server Name Role Phone Chandan Younger DO Primary Care Provider Naomi Durán BIN FILLER Unavailable Unavailable Flakita Mckeon NP Unavailable Chandan Younger DO Unavailable Manju Rosales MD Unavailable [phone] Encounter Details Date Type Department Care Team (Late st Contact Info) Description 07/13/2016 Procedure Pass [facility] [address] [place] [address] Social History Tobacco Use Types Packs/Day Years [...] Description 07/06/2025 11:20 AM EDT Office Visit [facility] [address] [place] [address] Kenyetta Miller CNP 22 [facility], 1st [place] [address] documented as of this encounter Visit Diagnoses Not on filedocumented in this encounter Care Teams Room Server Relationship Specialty Start Date End Date Chandan Younger DO [address] [place] [address] PCP - General Internal Medicine 06/30/16 Naomi Durán NP [address] [place] [address] Historical LMR Provider 06/26/1709/17 Flakita Mckeon NP [address] [place] [address] Historical LMR Provider 06/26/17 Chandan Younger DO [address] [place] [address] Historical LMR Provider 06/26/17 Manju Rosales MD [address] [place] [address], 1st [place] [address] Historical LMR Provider 06/26/17 documented as of this encounter Additional Source Comments The information contained in this document represents components of the legal health record. It is not the complete legal health record.[facility]
--- OUTSIDE RECORDS SUMMARY | 2025-06-08 09:35 | XMS_ITS | Clinical Summary ---
Author Organization [facility] Address [address] [place] [address] Phone Care Team Providers Care Dust Box Tender Name Role Phone Chandan Younger DO Primary Care Provider Chandan Younger DO Unavailable [phone] Manju Rosales MD Unavailable [phone] Allergies Active Allergy Reactions Criticality Noted Date [...] is reasonable, goal TIR >50%, A1c 7-8% Dsetinee continues to benefit from CGM with alarm [...] or concerns. Destinee will meet with Naomi Ruvalcbaa in 3 months, we will meet again [...] no redness, no bleeding. Plan: Procedure Codes: 81308 Glucose monitoring, cont Assessment & Plan (02/25/2021 [...] no redness, no bleeding. Plan: Procedure Codes: 45905 Glucose monitoring, cont Assessment & Plan (08/31/2020 [...] no redness, no bleeding. Plan: Procedure Codes: 17567 Glucose monitoring, cont Assessment & Plan (04/16/2020 [...] PM EDT Hospital Encounter [facility] [address] [place] [address] Aidan Ross MD Discharge Disposition: Home or Self Care 04/17/2025 Telephone [facility] [address] [place] [address] Kenyetta Miller CNP Follow-up 04/02/2025 1:50 PM EDT Office Visit [facility] [address] [place] [address] Kenyetta Miller CNP Type 2 diabetes mellitus with diabetic neuropathy, with long-term current use of insulin from Last 3 Months Immunizations Immunization Administration [...] Description 07/06/2025 11:20 AM EDT Office Visit [facility] [address] [place] [address] Kenyetta Miller, YEHUDA 22 [facility], [address] [place] [address] [email or web address] Health Maintenance Due Date Last Done Comments [...] Procedure Name Priority Date/Time Associated Diagnosis Comments NON-NITROCELLULOSE MAKER CYTOLOGY, NON CSF, NON URINE Routine 05/14/2025 12:00 AM EDT POCT HEMOGLOBIN A1C Routine 05/27/2024 1 :13 PM EDT Type 2 diabetes mellitus with diabetic neuropathy HM DIABETES EYE EXAM FOR RESULT ENTRY ONLY Routine 06/16/2019 from Last 3 Months or Most Recently Relevant to Health Maintenance Results * Non-Plasterer Foreman Cytology (05/14/2025 12:00 AM EDT) 05/14/2025 05/14/2025 11: 55 AM EDT Narrative SEE NARRATIVE - 05/15/2025 3:56 PM EDT [address] [address] Host Hostess: Kendell Banuelos MD Non Plasterer Foreman Cytology Report FINAL DIAGNOSIS A. LEFT PAROTID GLAND, ULTRASOUND GUIDED FINE NEEDLE ASPIRATION: SPECIMEN ADEQUACY: Satisfactory for evaluation. INTERPRETATION: NEOPLASM: BENIGN ([place] Category Mark) DIAGNOSIS: Oncocytic neoplasm, favor Warthin tumor. Note: In this setting the risk of malignancy is 0-13%. Usual management is conservative surgery or clinical follow-up. Electronically Signed Out By: MD Andrai Miranda CT([facility]) By his/her signature above, the pathologist listed [...] : 1945 (Age: 80) Sex: F Institution: [facility] Location: [facility] Date of Collection: 05/14/2025 Date of Reported: 05/15/2025 15:56 Results to: Aidan Ross MD, BA Ariane Baum MD us Aidan Ross MD CYTOLOGY ORDERABLES Final Resul t Performing Organization Address City/[facility] Co de Phone Number SEE NARRATIVE * POCT Hemoglobin A1c (05/27/2024 1:13 PM EDT) Hemoglobin A1c 5.7 4.2 - 5.8 % [facility] Other 05/27/2024 1:13 PM EDT us Kenyetta Miller CNP POINT OF CARE TEST ORDERABLES Final Result Performing Organization Address City/[facility]/ZIP Co de Phone Number [facility] [address] [place] [address], [facility] * DIABETES EYE EXAM FOR RESULT ENTRY ONLY (06/16/2019) EYE EXAM [facility] us Historical Provider MD HEALTH MAINTENANCE Final Result from Last 3 Months or Most Recently Relevant to Health Maintenance Insurance MEDICARE PART A & B [employer] MED[employer] SUPPLEMENT MEDICARE PART A & B Member Subscriber Plan / Payer (Ef fective 2011-Present) Name:Randolph Shannan Member ID:[id number] Relation to Subscriber:Self Name:Shannan Hassan Subscriber ID:[id number] Payer ID:[id number] Group ID:Not on file Type:Medicare Address: [employer] [address] [employer] CROSS MEDEX SUPPLEMENT MEDICARE PART A & B [employer]OSS [employer] SUPPLEMENT MEDICARE PART A & B [employer]OSS [employer] SUPPLEMENT MEDICARE PART A & B [employer] SUPPLEMENT MEDICARE PART A & B [employer]OSS [employer] SUPPLEMENT MEDICARE PART A & B [employer] SUPPLEMENT MEDICARE PART A & B [employer] CROSS [employer] SUPPLEMENT MEDICARE PART A & B [employer] SUPPLEMENT Care Teams Dust Box Tender Relationship Specialty Start Date End Date Chandan Younger DO [address] [place] [address] PCP - General Internal Medicine 06/30/16 Chandan Younger DO [address] [place] [address] Historical LMR Provider 06/26/17 Manju Rosales MD [address] [place] [address], 1st [place] [address] [email or web address] Historical LMR Provider 06/26/17 Additional Source Comments The information contained in this document represents components of the legal health record. It is not the complete legal health record.[facility]
--- OUTSIDE RECORDS SUMMARY | 2025-06-08 09:35 | XMS_ITS | Encounter Summary ---
Author Organization [facility] Address [address] [place] [address] Phone Care Team Providers Care Garnishment Specialist Name Role Phone Chandan Younger DO Primary Care Provider Chandan Younger DO Unavailable Manju Rosales MD Unavailable [phone] Reason for Visit * Reason Onset Date Comments Follow-up 04/17/2025 Encounter Details Date Type Department Care Team (Late st Contact Info) Description 04/17/2025 Telephone [facility] [address] [place] [address] Kenyetta Miller, YEHUDA 22 [facility], [address] [place] [address] [email or web address] Follow-up Social History Tobacco Use Types Packs/Day [...] 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 Thank you!! documented in this encounter Plan of Treatment Upcoming Encounters Date Type Department Care Team (Late st Contact Info) Description 07/06/2025 11:20 AM EDT Office Visit [facility] [address] [place] [address] Kenyetta Miller CNP [address] [place] [address] [email or web address] documented as of this encounter Visit Diagnoses Not on filedocumented in this encounter Care Teams Garnishment Specialist Relationship Specialty Start Date End Date Chandan Younger DO [address] [place] [address] PCP - General Internal Medicine 06/30/16 Chadnan Younger DO [address] [place] [address] Historical LMR Provider 06/26/17 Manju Rosales MD [address] [place] [address] [email or web address] Historical LMR Provider 06/26/17 documented as of this encounter Additional Source Comments The information contained in this document represents components of the legal health record. It is not the complete legal health record.[facility]
--- OUTSIDE RECORDS SUMMARY | 2025-06-08 09:35 | XMS_ITS | Data Portability ---
Author Organization [place] - [facility], Allergy Address [address] [address] Care Team Providers Care Armored Service Technician Name Role Phone RUTHIE ZAMAN Primary Care Provider Assessment Encounter Date Assessment Date Assessment LastModified by Organization Details LastModified Time 05/15/2024 05/15/2024 79 year old female presents for cerumen removal. Cerumen impaction removed bilaterally. Bilateral TMs are intact. Follow up in 6 months for routine ear cleaning. [email or web address] Not available 05/15/2024 11:23:16 10/17/2024 10/17/2024 79 year old female presents for cerumen removal. Cerumen impaction removed bilaterally. Bilateral TMs are intact. Follow up in 6 months for routine ear cleaning. [email or web address] Not available 10/17/2024 10:31:47 Plan of Treatment Reminders Order Date Submit Date Provider Last Modified By Organization Details Last Modified Time Details Appointments None recorded. Lab microscopic exam, cytology, tissue FNA (OBS) - [facility] 2024 025 EFRAIN [facility] (Centralized Electronic Ordering - All Locations), Patient Can Go To The Location Of Their Choice, [id number] 01:16:52 Referral None recorded. Procedures None recorded. Surgeries [...] Name and Address Organization Details Recorded Time Impacted cerumen of bilateral ears [id number] Active 2019 Impacted cerumen, bilateral ; Note: Date Diagnosed : 09/16/2019 3:17 PM (H61.23) Not Available [facility] 4 03:17:45 Sensorine ural hearing loss of bilateral ears 188097526 Active 2019 Sensorine ural hearing loss, bilateral ; Note: Date Diagnosed : 09/16/2019 3:17 PM (H90.3) Not Available [facility] 4 03:17:45 Candidal otitis externa 21246793 Active 2019 Candidal otitis externa; Note: Date Diagnosed : 03/26/2020 10:18 AM (B37.84) Not Available [facility] 4 03:17:44 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 Procedures Surgical History Date Name Laterality Status Provider Name and Address Organization Details Recorded Time 5 Fine Needle Aspiration completed ZINA SILVA MD [address] [place] [address], [phone], [facility] 04/24/2025 15:36:08 5 Cerumen removal without microscope bilat completed DAWN LEHMAN PA-C [address] [place] [address], [phone], [facility] - [facility] 10/17/2024 10:31:43 4 Cerumen removal without microscope bilat completed DAWN LEHMAN PA-C [address] [place] [address], [phone], [facility] - [facility] 05/15/2024 11:22:21 Imaging Results None recorded. Procedure Notes None recorded. Medical Equipment None Reported. Allergies Allergen ID Allergen Name Allergen Category Reaction Reaction Severity Criticality Documentation Date Start Date Code Code System Note Provider Name and Address Organization Details Recorded Time [id number] penicilli n V potassium medicatio n other Not available Not available 01/22/202474700 5 RxNorm React ion: unkno wn, unspe cifie d;; Not Available [facility] 01:[facility]20 Medications Name Sig Start Date Stop Date Status Note LastModified by Organization Details LastModified Time fluoxetin e 40 mg capsule TAKE 1 CAPSULE BY MOUTH EVERY DAY WITH 20 MG CAP active Not Available Not Available No t Available atorvasta tin 40 mg tablet TAKE 1 TABLET BY MOUTH EVERY DAY active Not Available Not Available No t Available metformin 500 mg tablet TAKE 1 TABLET BY MOUTH TWICE A DAY active Not Available Not Available No t Available atorvasta tin 20 mg tablet 11/22 completed Medicati on ID: [id number] D uration Value: 90 Brand Name: atorvast attita Fong d Method: E-Prescr ibed Sub s Allowed: subs OK Speci al Instruct ion: TAKE 1 TABLET BY MOUTH EVERY DAY Medi cationGe nericNam e: atorvast atin Not Available Not Available Not Available lorazepam 2 mg tablet TAKE 1 TABLET BY MOUTH BEFORE MRI 1 DAYS 04/24 completed Not Available Not Available Not Available clotrimaz ole 1 % topical solution 04/24 completed Medicati on ID: [id number] D uration Value: 28 Prescri bed By Name: ANDREW Ball nd Name: clotrima zollayne Fong d Method: E-Prescr ibed Sub s [...] Not Available Not Available No t Available hydrocort isone 2.5 % topical ointment USE 1 APPLICAT ION TOPICALL Y 3 TIMES A DAY NEEDED FOR SKIN IRRITATI ON active Not Available Not Available No t Available fluoxetin e 20 mg capsule TAKE 1 CAPSULE BY MOUTH DAILY active Not Available Not Available No t Available metformin ER 500 mg tablet,ex tended release 24 hr 11/22 completed Medicati on ID: [id number] D uration Value: 90 Brand Name: metformi n Send Method: E-Prescr ibed Sub s Allowed: subs OK Speci al Instruct ion: TAKE 3 TABLETS BY MOUTH DAILY Me dication GenericN yvette: metformi n Not Available Not Available Not Available multivita min 11/22 completed Medicati on ID: [id number] B rand Name: multivit diaz Sen d Method: E-Prescr ibed Sub s Allowed: subs OK Medic ationGen ericName : multivit diaz Not Available Not Available Not Available Vitamin D3 50 mcg (2,000 unit) tablet 11/22 completed Medicati on ID: [id number] B rand Name: Vitamin D3 Send Method: E-Prescr ibed Sub s Allowed: subs OK Medic ationGen ericName : Vitamin D3 Not Available Not Available Not Available Zyrtec 10 mg capsule Take 1 capsule by mouth once a day as needed 11/22 completed Medicati on ID: [id number] D uration Value: 1 Brand Name: Zyrtec S end Method: E-Prescr ibed Sub s Allowed: subs OK Medic ationGen ericName : Zyrtec Not Available Not Available Not Available Basaglar KwikPen U-100 Insulin 100 unit/mL (3 mL) subcutane ous 11/22 completed Medicati on ID: [id number] D uration Value: 90 Brand Name: Basaglar [...] mg capsule 11/22 completed Medicati on ID: [id number] B rand Name: Josi Send Method: E-Prescr ibed Sub s Allowed: subs OK Medic ationGen ericName : Josi Not Available Not Available Not Available Aleah 2nd Gen Pen Needle 32 gauge x 5/32 INJECT 1 EACH UNDER THE SKIN EVERY MORNING. active Not Available Not Available No t Available Vitals Date Recorded Body height Body mass index (BMI) Body weight Provider Name and Address Organization Details Last Updated DateTime 04/24/2025 170.18 cm 23.5 kg/m2 50565.86 g Roseanne Vega [facility] 04/24/2025 15:23:31 Date Recorded Body height Body mass index (BMI) Body weight Provider Name and Address Organization Details Last Updated DateTime 05/15/2024 170.18 cm 24 kg/m2 63083.63 g Shania Robbie [facility] 05/15/2024 11:22:38 Social History None recorded. Functional Status None recorded. Mental Status None recorded. Family History Nothing Reported. Medical History No medical history recorded. Gynecological HistoryNo gynecological history recorded. Obstetrics History GPAL:G 0 P 0 0 0 0 Past Encounters Encounter ID Performer Location Encounter Start Date Encounter Closed Date Diagnosis/Indication Diagnosis SNOMED-CT Code Diagnosis ICD10 Code Diagnosis IMO Codes Diagnosis Note [id number] DAWN LEHMAN PA-C [facility] [address] [address] 05/15/2024 11:11:41 05/15/2024 11:34:21 Impacted cerumen of bilateral ears [id number] 713898 H61.23 [id number] DAWN LEHMAN PA-C [facility] [address] [address] 10/17/2024 10:28:54 10/17/2024 10:55:36 Impacted cerumen of bilateral ears [id number] 733954 H61.23 [id number] ZINA SILVA MD [facility] [address] [address] 04/24/2025 15:18:10 04/24/2025 15:46:46 Neoplasm of uncertain behavior of parotid gland 05553506 D37.030 [id number] She had a CT scan in February showing small oval mass anterior left parotid tissue 1.1 x 1.3 x 0.8 cm appears unchanged from MRI in August 2024. We reviewed the risks of FNA including bleeding, infection, nondiagnos is. She tolerated aspiration well. There was mucoid fluid and there was decompress ion of the nodule. We will follow-up with results by phone. Health Concerns Section Related Observation LastModified by Organization Detai ls LastModified Time None Recorded Concern Status LastModified by Organization Details LastModified Time None Recorded Advance Directives Directive None Recorded Payers Insurance Date Sequence Insurance Name Policy Number Policy Valle Covered Member ID Valle Member ID Guarantor Name 04/24/2025 1 [place] [employer] Shannan Tucker Layzer [id number] Shannan L Layzer 04/24/2025 2 [place] [id number] Shannan L Layzer [id number] Shannan L Layzer Notes Date Note Type Note Provider Name and Address Organization Details Recorded Time 05/15/2024 text/html ROS as noted in the [facility] 79 year old female presents for cerumen removal. No concerns today. MIRLANDE APONTE MD [address] [place] [address], [phone], [place] - [facility] 05/15/2024 16:31:26 10/17/2024 text/html ROS as noted in the [facility] 79 year old female presents for cerumen removal. No concerns today. ZINA SILVA MD [address] [place] [address], [phone], [place] [facility] 10/17/2024 12:56:20 04/24/2025 text/html Nodule over masseter, not painful, 2-3 months ago. History of sarcoma right leg. History of breast cancer. She had a CT scan in February showing small oval mass anterior left parotid tissue 1.1 x 1.3 x 0.8 cm appears unchanged from MRI in August 2024. ZINA SILVA MD [address] [place] [address], [phone], [place] [facility] 04/25/2025 08:00:50 OBGyn Episode No OBEpisode recorded.
== END 2025-06-08 09:17 | disposition home or self-care (01) ==
LOC: HO.HSM 09:02
PROVIDERS: PCP Internal Medicine; Visit Provider Psychiatry & Neurology Neurology
DX: G31.84 Mild cognitive impairment of uncertain or unknown etiology (principal)
CPT/HCPCS: 99214

== ENCOUNTER 2025-07-13 08:58 | Outpatient (AMB) | payer MEDICARE, SELFPAY ==
--- NOTE | 2025-07-13 09:05 | MHC.OFFVIS ---
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 She was taking fluoxetine 60 mg a day. She was also walking with a neighbor's every day. Mood was relatively stable. Her daughter was closely involved with the care. [facility] Medical History (Updated 07/13/25 @ 09:09 by Wilmer Bergman MD) Type 2 diabetes mellitus with hemoglobin A1c goal of less than 7.0% Cognitive impairment Abnormal CT scan, neck Lump on face Depression Dry skin dermatitis History of mammogram (~05/23/24) Bilateral ankle pain Anxiety Frequent falls Dysthymia History of DVT (deep vein thrombosis) Atypical chest pain Sarcoma Anxiety disorder Penicillin-induced anaphylaxis Dupuytren contracture Ovarian cyst Uterine prolapse History of breast cancer Vitamin D deficiency Hearing loss Type 2 diabetes mellitus Hypertriglyceridemia Mild hypercholesterolemia Hypertension Surgical History History of colonoscopy (~02/07/19) Family History Father No problems noted. Mother No problems noted. Social History Housing: Condominium Alcohol intake: current Alcohol intake frequency: does not drink Patient Tobacco Use Status: Former Tobacco user service: No Current occupational status: retired Cognitive needs: No Hearing needs: Yes (b/l hearing aids) Vision needs: Yes (rx glasses ) Review of Systems Narrative No new issues. Sometime mood is depressed. Physical Exam Neuro Other: Mental Status: Alert and oriented to person, place, and time. Normal attention. Normal spontaneous speech, fluency, and comprehension. No obvious issues with mood and memory. Affect is appropriate. Cranial Nerves: CN II: Visual jin full to confrontation, visual acuity intact. CN III, IV, : Pupils equal, round, reactive to light and accommodation. Extraocular movements are normal. CN V: Facial sensation is normal. CN VII: Facial movements symmetrical. CN VIII: Hearing intact to bedside conversation is normal. CN IX, X: Palate elevates symmetrically. CN XI: Shoulder shrug and head turn symmetrical. CN XII: Tongue midline without atrophy or fasciculations. Motor: Bulk and tone normal in all extremities. No significant muscle weakness in arms and legs. No drift. Reflexes: Deep tendon reflexes 2+ and symmetric. Plantar response down-going bilaterally. Coordination: [id number]-[id number] and ffct-vq-tjyi testing normal. No dysmetria. Gait and Station: No obvious gait abnormality. No ataxia or instability. Extrapyramidal: Full facial expressions and blinking. No rigidity. Movements are appropriate with no tremor or abnormality. Speech: Normal; no dysarthria or tremor. Results Reviewed Results Reviewed: Laboratory Tests 02/09/25 09:15 Vitamin B12 267 25-OH Vitamin D Total 30.1 Folate 5.8 TSH 1.25 Laboratory Tests 08/28/24 06/08/25 11:23 09:35 Lyme Screen IgG & IgM <0.90 Amyloidosis Interpret Low Likelihood Amyloid Beta 42 Peptide 49 Amyloid Beta 40 Peptide 290 Phosphorylated Tau 217 0.23 H Assessment & Plan Assessment & Plan (1) MCI (mild cognitive impairment): Comment: MOCA in Aug 2024: 28 [place] [facility] [place] B12/folate/TSH/beta 42/40/tau: WNL EEG at off in Sep 2024: WNL [place] [facility] [place]: No sig abn Code(s): G31.84 - Mild cognitive impairment of uncertain or unknown etiology Category: Medical Plan 80 years old woman with mild cognitive impairment with depression. She was taking fluoxetine 60 mg a day. She was reassured and educated about different ways of managing depression and avoiding cognitive complications of depression. Serum test test for Alzheimer at this time was negative. Clinical follow-up would continue and I would see her back in a year time. Coding Level of Care Code Est Pt Level 4 (10448) Diagnoses MCI (mild cognitive impairment) G31.84
--- OUTSIDE RECORDS SUMMARY | 2025-07-13 09:44 | XMS_ITS | Encounter Summary ---
Author Organization [facility] Address [address] [place] [phone] Phone Care Team Providers Care Ink Printer Name Role Phone Chandan Younger DO Primary Care Provider [phone] Chandan Younger DO Unavailable Manju Rosales MD Unavailable [phone] Reason for Visit * Reason Onset Date Comments Augusta 3 order 07/06/2025 Encounter Details Date Type Department Care Team (Late st Contact Info) Description 07/06/2025 Telephone [facility] [address] [place] [address] Kenyetta Miller, YEHUDA [address] [facility] [place] [address] [email or web address] Augusta 3 order Social History Tobacco Use Types Packs/Day Years [...] as of this encounter Progress Notes * Kenyetta Miller CNP - 07/06/2025 11:52 AM EDT Could someone check with [employer] to see why the augusta 3 hasn't been dispensed for patient? Still only getting Augusta 2 plus and has trouble opening applicator due to dexterity issues. Could open the augusta 3 plus in our last visit documented in this encounter Plan of Treatment Upcoming Encounters Date Type Department Care Team (Late st Contact Info) Description 08/25/2025 1:50 PM EST Office Visit [facility] [address] [place] [phone] Kenyetta Miller CNP [address] [place] [phone] [email or web address] documented as of this encounter Visit Diagnoses Not on filedocumented in this encounter Care Teams Ink Printer Relationship Specialty Start Date End Date Chandan Younger DO [address] [place] [phone] PCP - General Internal Medicine 06/30/16 Chandan Younger DO [address] [place] [address] Historical LMR Provider 06/26/17 Manju Rosales MD [address] [place] [phone] Historical LMR Provider 06/26/17 documented as of this encounter Additional Source Comments The information contained in this document represents components of the legal health record. It is not the complete legal health record.[facility]
--- OUTSIDE RECORDS SUMMARY | 2025-07-13 09:44 | XMS_ITS | Clinical Summary ---
Author Organization [facility] Address [address] [place] [address] Phone Care Team Providers Care Electric Motor Winder Name Role Phone Chandan Younger DO Primary Care Provider [phone] Chandan Younger DO Unavailable [phone] Manju Rosales MD Unavailable [phone] Allergies Active Allergy Reactions Criticality Noted Date [...] Diagnosed Date Hypercholesterolemia 08/16/2020 Assessment & Plan (07/07/2025 10:15 PM EDT): Continues on moderate intensity statin therapy No recent lipid data available for review LDL goal is <100, ideally <70 Assessment & Plan (05/27/2024 3:44 PM EDT): [...] is <100 Hypertension 08/16/2020 Assessment & Plan (07/07/2025 10:14 PM EDT): Blood pressure borderline today, not currently on any antihypertensive medications Assessment & Plan (05/27/2024 3:43 PM EDT): [...] metformin. Insulin approx 2010 Assessment & Plan (07/07/2025 10:16 PM EDT): Currently on moderate dosing of metformin and Soliqua No blood sugar data to review today, there is concern due to Shannan's memory that she may not be remembering medications, there is concerns that she could double dose the insulin, systems have been put in place for medication check We discussed strategies at length today that would help ensure safe medication administration, including considering a visiting nurse, this has been being worked on with PCP, but Laura is discouraged that this hasn't been handle timely so far We discussed other strategies like putting a pen needle in the medication container, which Shannan would like to try before making any medication adjustments Medication adjustments that could be considered that would allow Shannan to be off insulin would include SGLT2, the GLP1 component and optimizing, however I am concerned about both these options since they come with their own risks. SGLT2 would increase risk for UTI/yeast infections and Shannan reports not being good about water intake. GLP1 could increase risk of weight loss which wouldn't be advisable for patient given current body habitus and age Shannan for now would like to keep medications the same, she will try the pen needle in the pill contained since her daughter in law fills the pill container every week. We discussed that if she is ever questioning whether or not she took a dose, then to skip it CGM will be important for Shannan to resume use of, this would help to alert for hypoglycemia early and allow Shannan to treat appropriately, provided a [place] 3 plus sample today which Shannan was able to open without issue today Assessment & Plan (04/02/2025 3:00 PM EDT): [...] no redness, no bleeding. Plan: Procedure Codes: 00604 Glucose monitoring, cont Assessment & Plan (02/25/2021 [...] no redness, no bleeding. Plan: Procedure Codes: 57778 Glucose monitoring, cont Assessment & Plan (08/31/2020 [...] no redness, no bleeding. Plan: Procedure Codes: 71298 Glucose monitoring, cont Assessment & Plan (04/16/2020 [...] Encounters Date Type Department Care Team Description 07/06/2025 11:20 AM EDT Office Visit [facility] [address] [place] [place] [address] Kenyetta Miller CNP Type 2 diabetes mellitus with diabetic neuropathy, with long-term current use of insulin (Primary Dx); Primary hypertension; Hypercholesterolemia 07/06/2025 Telephone [facility] [place] [address] [place] [address] Kenyetta Miller CNP [place] 3 order 05/14/2025 11:17 AM EDT - 05/14/2025 11:59 PM EDT Hospital Encounter [facility] [address] [place] [address] Aidan Ross MD Discharge Disposition: Home or Self Care 04/17/2025 Telephone [facility] [address] [place] [address] Kenyetta Miller CNP Follow-up from Last 3 Months Immunizations Immunization Administration [...] Sign Reading Time Taken Comments Blood Pressure 138/68 07/06/2025 11:21 AM EDT Pulse 68 07/06/2025 11:21 AM EDT Temperature 36.4 C (97.5 F) 05/27/2024 1:06 PM EDT Respiratory Rate 18 07/13/2016 10:20 AM EDT Oxygen Saturation 99% 07/06/2025 11:21 AM EDT Inhaled Oxygen Concentration - - Weight 67.7 kg (149 lb 3.2 oz) 07/06/2025 11:21 AM EDT Height 170.2 cm (5' 7.01 ) 07/06/2025 11:21 AM E DT Body Mass Index 23.36 07/06/2025 11:21 AM EDT Plan of Treatment Upcoming Encounters Date Type Department Care Team (Late st Contact Info) Description 08/25/2025 1:50 PM EST Office Visit [facility] [address] [place] [address] Kenyetta Miller, INSTALLER INSPECTOR FINAL [address] [facility], [address] [place] [address] [email or web address] Health Maintenance Due Date Last Done Comments [...] 11/08/2022 11/08/2021, 04/2021, 11/14/2019, Additional history exists INFLUENZA VACCINE (#1) 2025 , 06/20/2023, 07/18/2022, Additional history exists COVID-19 VACCINE ( season) 2025 07/10/2024, 09/06/2021, 12/07/2020, Additional history exists BLOOD PRESSURE 01/04/2026 07/06/2025 HEMOGLOBIN A1C 01/04/2026 07/06/2025, 05/11, 02/25/2024, Additional history exists HEPATITIS A VACCINES Aged Out No long [...] Procedure Name Priority Date/Time Associated Diagnosis Comments POCT HEMOGLOBIN A1C Routine 07/06/2025 1 1:36 AM EDT Type 2 diabetes mellitus with diabetic neuropathy, with long-term current use of insulin NON-RESPIRATORY TECH CYTOLOGY, NON CSF, NON URINE Routine 05/14/2025 12:00 AM EDT DIABETES EYE EXAM FOR RESULT ENTRY ONLY Routine 06/16/2019 from Last 3 Months or Most Recently Relevant to Health Maintenance Results * (ABNORMAL) POCT Hemoglobin A1c (07/06/2025 11:36 AM EDT) Hemoglobin A1c 6.9(A) 4.2 - 5.6 % [employer] [facility] Other 07/06/2025 11:3 6 AM EDT us Kenyetta Miller INSTALLER INSPECTOR FINAL LAB POCT ENTER/EDIT ORDERABLE S Final Result [address] [address], [facility] * Non-Coining Press Operator Cytology (05/14/2025 12:00 AM EDT) Report [address] [address] [employer]: Kendell Banuelos MD Non Coining Press Operator Cytology Report FINAL DIAGNOSIS A. LEFT PAROTID GLAND, ULTRASOUND GUIDED FINE NEEDLE ASPIRATION: SPECIMEN ADEQUACY: Satisfactory for evaluation. INTERPRETATION: NEOPLASM: BENIGN (Emery Category Mark) DIAGNOSIS: Oncocytic neoplasm, favor Warthin tumor. Note: In this setting the risk of malignancy is 0-13%. Usual management is conservative surgery or clinical follow-up. Electronically Signed Out By: MD Andria Miranda CT([facility]) By his/her signature above, the pathologist [...] : 1945 (Age: 80) Sex: F Institution: [facility] Location: [facility] Date of Collection: 05/14/2025 Date of Reported: 05/15/2025 15:56 Results to: Aidan Ross MD, BA Ariane Baum MD [facility] Clinical History Patient presents with left parotid mass. [facility] Final Diagnosis A. LEFT PAROTID GLAND, ULTRASOUND GUIDED FINE NEEDLE ASPIRATION: SPECIMEN ADEQUACY: Satisfactory for evaluation. INTERPRETATION: NEOPLASM: BENIGN (Emery Category Mark) DIAGNOSIS: Oncocytic neoplasm, favor Warthin tumor. Note: In this setting the risk of malignancy is 0-13%. Usual management is conservative surgery or clinical follow-up. [facility] Gross Description A. LEFT PAROTID GLAND, ULTRASOUND GUIDED FINE NEEDLE ASPIRATION: Received are six (6) spray fixed direct smears and a needle rinse in 30ml CytoLyt preservative labeled with patient name and date of . One (1) ThinPrep slide and one (1) cell block are prepared. [facility] Conversion Type (Parotid Gland) 05/14/2025 05/14/2025 11:55 AM EDT Aidan Ross MD CYTOLOGY ORDERABLES Edited Resu lt - Final [facility] [address] [place] [address] * DIABETES EYE EXAM FOR RESULT ENTRY ONLY (06/16/2019) EYE EXAM [facility] Historical Provider HEALTH MAINTENANCE Final Result from Last 3 Months or Most Recently Relevant to Health Maintenance Insurance MEDICARE PART A & B MEDICARE PART A & B MEDICARE PART A & B MEDICARE PART A & B MEDICARE PART A & B MEDICARE PART A & B MEDICARE PART A & B MEDICARE PART A & B MEDICARE PART A & B Care Teams Electric Motor Winder Relationship Specialty Start Date End Date Chandan Younger DO [address] [place] [address] PCP - General Internal Medicine 06/30/16 Chandan Younger DO [address] [place] [address] Historical LMR Provider 06/26/17 Manju Rosales MD [address] [place] [id number] [email or web address] Historical LMR Provider 06/26/17 Additional Source Comments The information contained in this document represents components of the legal health record. It is not the complete legal health record.[facility]
--- OUTSIDE RECORDS SUMMARY | 2025-07-13 09:44 | XMS_ITS | Encounter Summary ---
Author Organization [facility] Address [address] [place] [address] Phone Care Team Providers Care Silk Crepe Machine Operator Name Role Phone Chandan Younger DO Primary Care Provider Naomi Durán VAMP STRAP IRONER Unavailable Unavailable Flakita Mckeon NP Unavailable Chandan Younger DO Unavailable [phone] Manju Rosales MD Unavailable [phone] Encounter Details Date Type Department Care Team (Late st Contact Info) Description 07/13/2016 Procedure Pass [facility] [address] [place] [address] Social History Tobacco Use Types Packs/Day Years [...] Description 08/25/2025 1:50 PM EST Office Visit [facility] [address] [place] [address] Kenyetta Miller CNP [address] [facility], 1[address] [place] [address] [email or web address] documented as of this encounter Visit Diagnoses Not on filedocumented in this encounter Care Teams Silk Crepe Machine Operator Relationship Specialty Start Date End Date Chandan Younger DO [address] [place] [address] PCP - General Internal Medicine 06/30/16 Naomi Durán NP [address] [place] [address] Historical LMR Provider 06/26/1709/17 Flakita Mckeon NP [address] [place] [address] Historical LMR Provider 06/26/17 Chandan Younger DO [address] [place] [address] Historical LMR Provider 06/26/17 Manju Rosales MD [address] [place] [address], [address] [place] [address] Historical LMR Provider 06/26/17 documented as of this encounter Additional Source Comments The information contained in this document represents components of the legal health record. It is not the complete legal health record.[facility]
--- OUTSIDE RECORDS SUMMARY | 2025-07-13 09:44 | XMS_ITS | Data Portability ---
Author Organization [place] [facility] Address [address] [address] Care Team Providers Care Vacuum Forming Machine Operator Name Role Phone RUTHIE ZAMAN Primary Care Provider Assessment Encounter Date Assessment Date Assessment LastModified by Organization Details LastModified Time 05/15/2024 05/15/2024 79 year old female presents for cerumen removal. Cerumen impaction removed bilaterally. Bilateral TMs are intact. Follow up in 6 months for routine ear cleaning. [email or web address] Not available 05/15/2024 11:23:16 10/17/2024 10/17/2024 79 year old female presents for cerumen removal. Cerumen impaction removed bilaterally. Bilateral TMs are intact. Follow up in 6 months for routine ear cleaning. [email or web address] Not available 10/17/2024 10:31:47 Plan of Treatment Reminders Order Date Submit Date Provider Last Modified By Organization Details Last Modified Time Details Appointments None recorded. Lab microscopic exam, cytology, tissue FNA (OBS) - [facility] 2024 025 EFRAIN [facility] (Centralized Electronic Ordering - All Locations), Patient Can Go To The Location Of Their Choice, [address] 01:16:52 Referral None recorded. Procedures None recorded. [...] Recorded Time Impacted cerumen of bilateral ears 50994582513 07600 Active 2019 Impacted cerumen, bilateral ; Note: Date Diagnosed : 09/16/2019 3:17 PM (H61.23) Not Available [facility] 4 03:17:45 Sensorine ural hearing loss of bilateral ears 930996448 Active 2019 Sensorine ural hearing loss, bilateral ; Note: Date Diagnosed : 09/16/2019 3:17 PM (H90.3) Not Available [facility] 4 03:17:45 Candidal otitis externa 74520501 Active 2019 Candidal otitis externa; Note: Date Diagnosed : 03/26/2020 10:18 AM (B37.84) Not Available [facility] 4 03:17:44 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 Procedures Surgical History Date Name Laterality Status Provider Name and Address Organization Details Recorded Time 5 Fine Needle Aspiration completed ZINA SILVA MD [address] [place] [address], [phone], [facility] - [facility] 04/24/2025 15:36:08 5 Cerumen removal without microscope bilat completed DAWN LEHMAN PA-C [address] [place] [address], [phone], [facility] - [facility] 10/17/2024 10:31:43 4 Cerumen removal without microscope bilat completed DAWN LEHMAN PA-C [address] [place] [address], [phone], [facility] - [facility] 05/15/2024 11:22:21 Imaging Results None recorded. Procedure Notes None recorded. Medical Equipment None Reported. Allergies Allergen ID Allergen Name Allergen Category Reaction Reaction Severity Criticality Documentation Date Start Date Code Code System Note Provider Name and Address Organization Details Recorded Time 348014 penicilli n V potassium medicatio n other Not available Not available 01/22/202418532 5 RxNorm React ion: unkno wn, unspe cifie d;; Not Available [facility] 01:25:20 Medications Name Sig Start Date [...] mg tablet 11/22 completed Medicati on ID: [id number] D uration Value: 90 Brand Name: atorvast [...] topical solution 04/24 completed Medicati on ID: [id number] D uration Value: 28 Prescri bed By [...] 24 hr 11/22 completed Medicati on ID: [id number] D uration Value: 90 Brand Name: metformi n Send Method: E-Prescr ibed Sub s Allowed: subs OK Speci al Instruct ion: TAKE 3 TABLETS BY MOUTH DAILY Me dication GenericN yvette: metformi n Not Available Not Available Not Available multivita min 11/22 completed Medicati on ID: [id number] B rand Name: multivit diaz Sen d Method: E-Prescr ibed Sub s Allowed: subs OK Medic ationGen ericName : multivit diaz Not Available Not Available Not Available Vitamin D3 50 mcg (2,000 unit) tablet 11/22 completed Medicati on ID: [id number] B rand Name: Vitamin D3 Send Method: E-Prescr ibed Sub s Allowed: subs OK Medic ationGen ericName : Vitamin D3 Not Available Not Available Not Available Zyrtec 10 mg capsule Take 1 capsule by mouth once a day as needed 11/22 completed Medicati on ID: [id number] D uration Value: 1 Brand Name: Zyrtec S end Method: E-Prescr ibed Sub s Allowed: subs OK Medic ationGen ericName : Zyrtec Not Available Not Available Not Available Basaglar KwikPen U-100 Insulin 100 unit/mL (3 mL) subcutane ous 11/22 completed Medicati on ID: [id number] D uration Value: 90 Brand Name: Basaglar [...] mg capsule 11/22 completed Medicati on ID: [id number] B rand Name: Josi Send Method: E-Prescr [...] Updated DateTime 04/24/2025 170.18 cm 23.5 kg/m2 80610.86 g Roseanne Vega [facility] 04/24/2025 15:23:31 Date Recorded Body height Body mass index (BMI) Body weight Provider Name and Address Organization Details Last Updated DateTime 05/15/2024 170.18 cm 24 kg/m2 70376.63 g Shania Robbie [facility] 05/15/2024 11:22:38 Social History None recorded. Functional Status None recorded. Mental Status None recorded. Family History Nothing Reported. Medical History No medical history recorded. Gynecological HistoryNo gynecological history recorded. Obstetrics History GPAL:G 0 P 0 0 0 0 Past Encounters Encounter ID Performer Location Encounter Start Date Encounter Closed Date Diagnosis/Indication Diagnosis SNOMED-CT Code Diagnosis ICD10 Code Diagnosis IMO Codes Diagnosis Note [id number] DAWN LEHMAN PA-C [facility] [address] [address] 05/15/2024 11:11:41 05/15/2024 11:34:21 Impacted cerumen of bilateral ears 8723324772 291614 H61.23 [id number] DAWN LEHMAN PA-C [facility] [address] [address] 10/17/2024 10:28:54 10/17/2024 10:55:36 Impacted cerumen of bilateral ears 2075332277 750174 H61.23 [id number] ZINA SILVA MD [facility] [address] [address] 04/24/2025 15:18:10 04/24/2025 15:46:46 Neoplasm of uncertain behavior of parotid gland 63608652 D37.030 [id number] She had a CT scan in February [...] ID Guarantor Name 04/24/2025 1 [place]IC[place] B-[place]: [employer] Shannan Tucker Layzer [id number] Shannan L Layzer 04/24/2025 2 [place] [id number] Shannan L Layzer [id number] Shannan L Layzer Notes Date Note Type Note Provider Name and Address Organization Details Recorded Time 05/15/2024 text/html ROS as noted in the [facility] 79 year old female presents for cerumen removal. No concerns today. MIRLANDE APONTE MD [address] [place] [address], [phone], [place] [facility] 05/15/2024 16:31:26 10/17/2024 text/html ROS as noted in the [facility] 79 year old female presents for cerumen removal. No concerns today. ZINA SILVA MD [address] [place] [address], [phone], [place] [facility] 10/17/2024 12:56:20 04/24/2025 text/html Nodule over masseter, not painful, 2-3 months ago. History of sarcoma right leg. History of breast cancer. She had a CT scan in February showing small oval mass anterior left parotid tissue 1.1 x 1.3 x 0.8 cm appears unchanged from MRI in August 2024. ZINA SILVA MD [address] [place] [address], [phone], [place] [facility] 04/25/2025 08:00:50 OBGyn Episode No OBEpisode recorded.
== END 2025-07-13 09:20 | disposition home or self-care (01) ==
LOC: HO.HSM 08:59
PROVIDERS: PCP Internal Medicine; Visit Provider Psychiatry & Neurology Neurology
DX: G31.84 Mild cognitive impairment of uncertain or unknown etiology (principal)
CPT/HCPCS: 99214

== ENCOUNTER → 2025-07-13 08:58 | Outpatient (BNVA) | payer MEDICARE, SELFPAY | PROVIDERS: PCP Internal Medicine; Visit Provider Psychiatry & Neurology Neurology | DX: G31.84 Mild cognitive impairment of uncertain or unknown etiology (principal); Z87.891 Personal history of nicotine dependence; F32.A Depression, unspecified; I10 Essential (primary) hypertension | CPT/HCPCS: 99212 ==

== ENCOUNTER 2025-08-24 10:11 | Outpatient (AMB) | payer MEDICARE, SELFPAY ==
--- NOTE | 2025-08-24 10:33 | MHC.PC.OV ---
Vital Signs 08/24/25 10:36 Height 5 ft 7.75 in Weight 152 lb 0.8 oz BMI 23.3 BP 132/63 Blood Pressure Location Rt brachial Pulse 70 Pulse Source Pulse Oximeter Temp 97.4 F Pulse Oximetry (%) 97 Intake Visit Reasons: 3 month follow up Intake Note: no issues Allergies penicillin G Allergy (Unknown, Verified 08/24/25 13:35) anaphylaxis penicillin V Allergy (Unknown, Verified 08/24/25 13:35) anaphylaxis Penicillins (PENICILLINS) Allergy (Unknown, Verified 08/24/25 13:35) ANAPHYLAXIS milk (Milk) Adverse Reaction (Intermediate, Verified 08/24/25 13:35) DIGESTIVE UPSET egg (Egg) Adverse Reaction (Mild, Verified 08/24/25 13:35) DIGESTIVE UPSET Medication List - Last Reconciled 08/24/25 by Miguelina Hernandez PA-C atorvastatin 40 mg PO DAILY cetirizine (Zyrtec) 10 mg PO DAILY PRN fluoxetine 20 mg PO DAILY fluoxetine 40 mg PO DAILY hydrocortisone 2.5% 1 appl topical TID PRN insulin glargine-lixisenatide 100 unit-33 mcg/mL (Soliqua 100/33) 18 units subcut QAM metformin 500 mg PO BID 90 days omeprazole 20 mg PO DAILY Tobacco use date assessed: 05/18/25 Dental Screening Dental Screen Date: 08/24/25 Did you have a dental visit in the last 12 months?: No Did you have a dental problem in the last 6 months where you did not have access to dental care?: No Was dental information given to patient?: Patient has dentist HPI HPI Comments History of Present Illness Details History of Present Illness The patient is a 80 year old female presenting for a three-month follow-up appointment. She has a history of medication non-adherence, particularly with her insulin and cholesterol medication. Her daughter reports that despite reminders from family and alarms on her phone, she often forgets or refuses to take her pills. The patient's type 2 diabetes is managed by an vegetable loader, whom she will see the day after this visit. Due to non-adherence with insulin, her blood glucose levels are frequently over 200 mg/dL and have exceeded 400 mg/dL at times. The patient has a history of mild cognitive impairment, which impacts her ability to manage medications and other daily activities. She has not had any recent falls, with the last one occurring about two years ago. Efforts to secure home health services have been challenging. A homemaker service arranged through [facility] has been unreliable, with the caregiver only showing up once since the assessment in June. The family is attempting to switch to a different agency, [facility], through a personal connection. The [facility] previously determined that nursing services for medication administration were not covered unless she required another service like wound care. Social History - Functional Status: The patient lives alone and receives Meals on Wheels. - Support System: Her daughter and [id number] are heavily involved in her care, managing appointments and providing medication reminders. - Home Health Services: The patient has an unreliable homemaker service through [facility], with plans to switch agencies. - Home Safety: Her daughter reports a tripping hazard on the floor from a tablecloth. - Nutritional Intake: The patient eats candy, which contributes to poor glycemic control. [facility] Medical History (Updated 08/24/25 @ 13:38 by Miguelina Hernandez PA-C) Preventative health care Nonadherence to medication Other problems related to life management difficulty Need for assistance with personal care Type 2 diabetes mellitus with hemoglobin A1c goal of less than 7.0% Cognitive impairment Abnormal CT scan, neck Lump on face Depression Dry skin dermatitis History of mammogram (~05/23/24) Bilateral ankle pain Anxiety Frequent falls Dysthymia History of DVT (deep vein thrombosis) Atypical chest pain Sarcoma Anxiety disorder Penicillin-induced anaphylaxis Dupuytren contracture Ovarian cyst Uterine prolapse History of breast cancer Vitamin D deficiency Hearing loss Type 2 diabetes mellitus Hypertriglyceridemia Mild hypercholesterolemia Hypertension Surgical History History of colonoscopy (~02/07/19) Family History Father No problems noted. Mother No problems noted. Social History Housing: Condominium Alcohol intake: current Alcohol intake frequency: does not drink Patient Tobacco Use Status: Former Tobacco user service: No Current occupational status: retired Cognitive needs: No Hearing needs: Yes (b/l hearing aids) Vision needs: Yes (rx glasses ) Questionnaire PHQ-9 Over the last 2 weeks, how often have you been bothered by any of the following problems? 1. Little interest or pleasure in doing things: several days 2. Feeling down, depressed, or hopeless: nearly every day 3. Trouble falling or staying asleep, or sleeping too much: nearly every day 4. Feeling tired or having little energy: nearly every day 5. Poor appetite or overeating: not at all 6. Feeling bad about yourself - or that you are a failure or have let yourself or your family down: several days 7. Trouble concentrating on things, such as reading the newspaper or watching television: not at all 8. Moving or speaking so slowly that other people could have noticed. Or the opposite - being so fidgety or restless that you have been moving around a lot more than usual: not at all 9. Thoughts that you would be better off or of hurting yourself in some way: not at all Total score: 11 Depression Screening Interpretation: Positive Depression Screening Follow-up: Existing condition, In treatment and Follow-up Visit Requested Depression Screening Done: Yes 75090 - PHQ-9 Billing: Yes Source: Developed by Drs. Chandan Holloway, Luz Farias, Obi Chapman and colleagues, with an educational jasiel from [employer]. Thrive Questionnaire Date Thrive assessed: 02/06/25 I am a: Patient What is your living situation today?: I have a steady place to live Within the past 12 months, did the food you bought not last and you didn't have the money to get more?: Never true Within the past 12 months, did you worry whether your food would run out before you got money to buy more?: Never true Do you have trouble paying for medicines?: No Do you have trouble getting transportation to medical appointments?: No Do you have trouble paying your heating and electricity bill?: No Do you have trouble taking care of your child, family member or friend?: No Do you have trouble with day-to-day activities such as bathing, preparing meals, shopping, managing finances, etc.?: No Are you currently unemployed and looking for a job?: No Are you interested in more education?: No Please select the resources that you would like help with: None THRIVE Score: 0 AUDIT C Alcohol Use Questionnaire (AUDIT-C) 1. How often do you have a drink containing alcohol?: Never 3. How often do you have six or more drinks on one occasion?: Never Total Score: 0 Score Reviewed/Action Taken: No IRENE-7 AMB Questionnaire IRENE-7 Date IRENE - 7 assessed: 02/06/25 Feeling nervous, anxious, or on edge: 3 = Nearly every day Not being able to stop or control worryin = Several days Worrying too much about different things: 1 = Several days Trouble relaxin = Not at all Being so restless that it is hard to sit still: 0 = Not at all Becoming easily annoyed or irritable: 1 = Several days Feeling afraid as if something awful might happen: 1 = Several days Total IRENE-7 score (0-4 normal; 5-9 mild; 10-14 moderate; 15-21 severe): 7 Source: Developed by Drs. Chandan Holloway, Luz Farias, Obi Chapman and colleagues, with an educational jasiel from [employer]. IRENE-7 Assessment Billing IRENE-7 Assessment Tool: IRENE-7 Assessment 74746 Review of Systems Narrative Review of Systems - Constitutional: Denies recent falls. - General: Reports feeling okay. Const All systems reviewed & are unremarkable except as noted in HPI and below Physical exam (Primary Care) Vital Signs: Last Vital Signs Temp 97.4 F 08/24/25 10:36 Pulse 70 08/24/25 10:36 BP 132/63 08/24/25 10:36 Pulse Ox 97 08/24/25 10:36 Care Plan Goal for BP management: <140/90 at Goal BMI result Body Mass Index 23.3 normal BP Tobacco/Smoking Status: Tobacco use Status Tobacco use date assessed 05/18/25 08/24/25 10:42 Patient Tobacco Use Status Former Tobacco user 08/24/25 10:42 PHQ-9: PHQ-9 Score PHQ-9: Total score 11 08/24/25 10:42 Depression Screening Interpretation: Positive Depression Screening Follow-up: Existing condition, In treatment and Follow-up Visit Requested Thrive Assessment: Date of Thrive Assessment Date Thrive assessed 02/06/25 08/24/25 10:42 Narrative Physical Exam Appearance: Alert. Oriented X3. No acute distress. Head: Normal external exam. Normocephalic. Atraumatic. Eyes: Pupils are equal, round, and reactive to light. Extraocular movements intact. Conjunctiva and sclera normal. Eyelids normal. Ears: External auditory canal normal. Tympanic membranes normal. No wax buildup noted. Throat: Pharynx normal. Uvula midline. Moist mucous membranes. Neck: Normal inspection. Neck supple. Full range of motion. Cardiovascular: Normal heart rate and rhythm. Heart sound normal. No murmurs noted. Pulses normal throughout. Respiratory: No respiratory distress. Painless inspiration. Breath sounds normal. No wheezes/rales/rhonchi noted. No accessory muscle usage noted or decreased air movement noted. Back:Full range of motion noted. Skin: Skin warm and dry. Normal skin color. Normal skin turgor. No rashes/lesions/lacerations noted. Extremities: No lower extremity edema. Extremities exhibit normal range of motion. Neuro: Oriented X 3. No motor deficit. No sensory deficit. Reflexes normal. Office Procedures Flu Questionnaire Does the patient have a severe egg allergy?: No Does the patient have severe life threatening allergies?: No Does the patient have a fever or illness today?: No Has the patient ever had Guillain-Florence Syndrome?: No Has the patient ever had any past reaction to a flu shot?: No Immunizations Fluarix [id number] (PF) 45 mcg (15 mcg x 3)/0.5 mL IM syringe Performing Provider: Miguelina Hernandez PA-C [facility] Documented (not given) by: Kristi Sampson on 08/24/25 10:43 Reason Not Given: Patient Refused Results Reviewed Results Reviewed: - Labs: A1c will be checked by endocrinology; no labs drawn today to avoid duplication. - Home Glucose Monitoring: Recent blood sugar readings are consistently over 200 mg/dL and have been over 400 mg/dL. Coding Level of Care Code Est Pt Level 4 (77760) Add On Problem Visit Only Diagnoses Nonadherence to medication Z91.148 Type 2 diabetes mellitus with hemoglobin A1c goal of less than 7.0% E11.9 Preventative health care Z00.00 Additional Codes IRENE-7 Assessment Billing - IRENE-7 Assessment Tool: IRENE-7 Assessment 59845 ([id number]) PHQ-9 - 49872 - PHQ-9 Billing: Yes ([id number]) Time Spent (min) 65 Assessment & Plan Assessment & Plan (1) Nonadherence to medication: Code(s): Z91.148 - Patient's other noncompliance with medication regimen for other reason Category: Medical Plan: The patient's non-adherence, particularly to insulin, poses a significant safety risk. A referral will be submitted to [facility] to request daily prison or personal assistance to ensure medication administration and safety. The referral will document the patient's progressive cognitive decline, memory impairment, and inability to safely manage medications, highlighting the risk for falls and medication errors, to strengthen the case for approval. Will consult with the nurse navigatorBarbra, regarding the possibility of declaring the patient as a frail elder to facilitate coverage for services. (2) Type 2 diabetes mellitus with hemoglobin A1c goal of less than 7.0%: Code(s): E11.9 - Type 2 diabetes mellitus without complications Category: Medical Plan: The patient's diabetes is co-managed with her vegetable loader, whom she will see tomorrow. Emphasized the critical importance of taking insulin, especially if she consumes sweets, to prevent life-threatening complications from hyperglycemia. A1c will not be checked today as it is scheduled to be done by endocrinology. (3) Preventative health care: Code(s): Z00.00 - Encounter for general adult medical examination without abnormal findings Category: Medical Plan: The patient was advised to get the high-dose flu shot at a local pharmacy, as it is recommended for her age and due to her diabetes. Recommended dental check-ups every six months to screen for oral cancer and ensure her dentures fit properly. No refills are needed at this time. Follow-up is scheduled in six months, as she is actively followed by endocrinology. Plan Plan Patient was informed and verbally consented to the use of an ambient scribe for clinic note documentation during this visit. 1. Medication Non-Adherence And Need For Home Health Services The patient's non-adherence, particularly to insulin, poses a significant safety risk. A referral will be [facility] to [facility] to request daily prison or personal assistance to ensure medication administration and safety. The referral will document the patient's progressive cognitive decline, memory impairment, and inability to safely manage medications, highlighting the risk for falls and medication errors, to strengthen the case for approval. Will consult with the nurse navigatorBarbra, regarding the possibility of declaring the patient as a frail elder to facilitate coverage for services. 2. Uncontrolled Type 2 Diabetes Mellitus The patient's diabetes is co-managed with her vegetable loader, whom she will see tomorrow. Emphasized the critical importance of taking insulin, especially if she consumes sweets, to prevent life-threatening complications from hyperglycemia. A1c will not be checked today as it is scheduled to be done by endocrinology. 3. Preventive Care The patient was advised to get the high-dose flu shot at a local pharmacy, as it is recommended for her age and due to her diabetes. Recommended dental check-ups every six months to screen for oral cancer and ensure her dentures fit properly. No refills are needed at this time. Follow-up is scheduled in six months, as she is actively followed by endocrinology. Discussion Notes I discussed at length with the patient and her daughter the severe risks associated with not taking insulin. I explained that while other medications like her cholesterol pill are important, the immediate, life-threatening danger comes from uncontrolled blood sugar, which can lead to . I stressed that if she is only able to take one medication, it must be her insulin. We also discussed the plan to submit a detailed referral for home health services, emphasizing her cognitive impairment and safety risks, to hopefully get daily assistance approved. I advised them on the importance of the high-dose flu vaccine and biannual dental visits. We agreed on a six-month follow-up interval for our clinic, given her ongoing care with endocrinology. Orders: Orders Influenza [id number] Immunization Today Z23 - Encounter for immunization Referrals [facility] Referral G31.84 - Mild cognitive impairment of uncertain or unknown etiology, Z73.89 - Other problems related to life management difficulty, Z74.1 - Need for assistance with personal care Patient Instructions: Patient Instructions - It is extremely important to take your insulin as prescribed every day. This is the most critical medication you take to prevent serious health problems or . - If you are only able to take one of your many medicines, you must choose the insulin. - Please get the high-dose flu shot from a pharmacy like [facility]. This is recommended because of your age and your diabetes. - You should see a dentist every six months, even though you have dentures. They need to check your gums and make sure your dentures fit correctly. - Follow up with your vegetable loader tomorrow as planned. - We will send a new referral to your home care agency to try to get you more help at home with your medications and daily tasks. - Your next follow-up appointment in this office will be in six months.
[2025-08-24 10:36] VITALS: BP 132/63; PULSE 70; TEMP 36.3; O2SAT 97; BMI 23.3
== END 2025-08-24 11:19 | disposition home or self-care (01) ==
LOC: HO.HMCSH 10:11
PROVIDERS: PCP Physician Assistant Medical; Visit Provider Physician Assistant Medical
DX: Z91.148 Patient's other noncompliance with medication regimen for other reason (principal); E11.9 Type 2 diabetes mellitus without complications; Z00.00 Encounter for general adult medical examination without abnormal findings; Z23 Encounter for immunization

== ENCOUNTER → 2025-08-24 10:11 | Outpatient (BNVA) | payer MEDICARE, SELFPAY | PROVIDERS: PCP Physician Assistant Medical; Visit Provider Physician Assistant Medical | DX: E11.9 Type 2 diabetes mellitus without complications (principal); Z91.148 Patient's other noncompliance with medication regimen for other reason; Z13.31 Encounter for screening for depression; G31.84 Mild cognitive impairment of uncertain or unknown etiology; Z73.89 Other problems related to life management difficulty; Z74.1 Need for assistance with personal care | CPT/HCPCS: 90471; 96127; 99212 ==